=== PATIENT | female | born 1985 | race Caucasian/White ===

== ENCOUNTER 2016-08-06 17:26 | Observation (INO) | payer OTHER ==
[2016-08-06] MEDS ORDERED: Sodium Chloride 0.9% 1,000 ML IV STA (17:45)
--- NOTE | 2016-08-06 17:58 | ED PDOC ---
Arrival/HPI - General Chief Complaint: Abdominal Pain Time Seen by Provider: 08/06/16 17:28 Historian: Patient - History of Present Illness Narrative History of Present Illness (Text): 08/06/16 17:48 A 30 year old female, whose past medical history includes gallstones and appendectomy, presents to the emergency department complaining of epigastric and right upper abdominal pain for the past 3 days. Patient says symptoms are worse with eating. She denies any relieving factors. She was given pain medication by her PMD which has provided minimal relief. Patient denies any fever, chills, nausea, vomiting, diarrhea, urinary symptoms, chest pain, shortness of breath or any other complaints. PMD: Dr. Parks Time/Duration: Other (3 days) Symptom Course: Unchanged Quality: Other Context: Other Past Medical History - Provider Review Nursing Documentation Reviewed: Yes - Infectious Disease Hx of Infectious Diseases: None - Gastrointestinal Other/Comment: Gall Stones - Psychiatric Hx Substance Use: No - Surgical History Hx Appendectomy: Yes Family/Social History - Physician Review Nursing Documentation Reviewed: Yes Family/Social History: No Known Family HX Smoking Status: Never Smoked Hx Alcohol Use: No Hx Substance Use: No Allergies/Home Meds Allergies/Adverse Reactions: Allergies No Known Allergies Allergy (Verified 08/06/16 17:43) Home Medications: Home Meds Medication Instructions Recorded Confirmed Unobtainable 08/06/16 08/06/16 Review of Systems - Physician Review All systems were reviewed & negative as marked: Yes - Review of Systems Constitutional: absent: Fevers, Night Sweats Eyes: absent: Vision Changes ENT: Normal Respiratory: absent: SOB Cardiovascular: absent: Chest Pain Gastrointestinal: Abdominal Pain (Epigastric and RUQ pain). absent: Diarrhea, Nausea, Vomiting Genitourinary Female: absent: Dysuria, Frequency, Hematuria, Urine Output Changes Musculoskeletal: absent: Back Pain Neurological: absent: Headache, Dizziness Physical Exam Vital Signs Reviewed: Yes Vital Signs Temp Pulse Resp BP Pulse Ox 08/06/16 18:19 98.5 F 82 18 121/77 99 08/06/16 17:40 98.5 F 82 16 121/77 99 Temperature: Afebrile Blood Pressure: Normal Pulse: Regular Respiratory Rate: Normal Appearance: Positive for: Well-Appearing, Non-Toxic, Comfortable Pain Distress: None Mental Status: Positive for: Alert and Oriented X 3 - Systems Exam Head: Present: Atraumatic, Normocephalic Pupils: Present: PERRL Conjunctiva: Present: Normal Mouth: Present: Moist Mucous Membranes Pharnyx: Present: Normal. No: ERYTHEMA, EXUDATE Neck: Present: Normal Range of Motion Respiratory/Chest: Present: Clear to Auscultation, Good Air Exchange. No: Respiratory Distress, Accessory Muscle Use Cardiovascular: Present: Regular Rate and Rhythm, Normal S1, S2. No: Murmurs Abdomen: Present: Tenderness (Epigastric and RUQ tenderness to palpation), Normal Bowel Sounds, Other (positive Lucas's sign). No: Distention, Peritoneal Signs, Rebound, Guarding Back: Present: Normal Inspection Upper Extremity: Present: Normal Inspection. No: Cyanosis, Edema Lower Extremity: Present: Normal Inspection. No: Edema Neurological: Present: GCS=15, CN II-XII Intact, Speech Normal Skin: Present: Warm, Dry, Normal Color. No: Rashes Psychiatric: Present: Alert, Oriented x 3, Normal Insight, Normal Concentration Medical Decision Making ED Course and Treatment: 08/06/16 17:48 Impression: A 30 year old female with epigastric and RUQ pain. Tenderness noted on exam. Plan: -- Abdomen ultrasound -- Labs -- Urinalysis -- Pepcid, Toradol and IV fluids -- Reassess and disposition Progress Notes: Report Date: 08/06/16 19:17 EXAM: US Abdomen Complete Dictated and Authenticated by: Oscar Smiley MD IMPRESSION: Multiple stones with positive sonographic Lucas sign. Findings could be associated with cholecystitis. However, no wall thickening or evidence for pericholecystic fluid. The common bile duct is enlarged at 7.4 mm. If the enzymes are elevated consider MRCP to exclude potential common bile duct stone. Hepatomegaly and hepatic steatosis. 08/06/16 20:06 Patient with noted history. LFTs are significantly elevated with sono showing gallstones with sonographic Lucas's. Patient will need treatment for cholecystitis, including iv antibiotics and surgical consult, for possible cholecsystectomy. Case was discussed with Dr. Parks, her PMD, who requested GI consult with Dr. Eid and surgical consult with Dr. Ely. 08/06/16 20:[address] a/p. - Lab Interpretations Lab Results: 08/06/16 18:06 08/06/16 18:06 Lab Results 08/06/16 18:15: Urine Color Yellow, Urine Appearance Clear, Urine pH 6.5, Ur Specific Shanks 1.020, Urine Protein Negative, Urine Glucose (UA) Negative, Urine Ketones Negative, Urine Blood Moderate H, Urine Nitrate Negative, Urine Bilirubin Negative, Urine Urobilinogen 0.2, Ur Leukocyte Esterase Negative, Urine RBC 0 - 2, Urine WBC 0 - 2, Ur Epithelial Cells 1 - 3, Urine Bacteria Small, Urine HCG, Qual Negative 08/06/16 18:06: Sodium 139, Potassium 4.0, Chloride 97 L, Carbon Dioxide 29, Anion Gap 17, BUN 13, Creatinine 0.7, Est GFR ( Amer) > 60, Est GFR (Non- Af Amer) > 60, Random Glucose 95, Calcium 10.1, Total Bilirubin 1.5 H, AST 588 H , ALT 405 H, Alkaline Phosphatase 114, Total Protein 9.3 H, Albumin 4.8, Globulin 4.6, Albumin/Globulin Ratio 1.0 L, Amylase 77, Lipase 219 08/06/16 18:06: PT 10.6, INR 0.98, APTT 27.3 08/06/16 18:06: WBC 10.1, RBC 4.77, Hgb 12.8, Hct 38.3, MCV 80.3, MCH 26.8, MCHC 33.4, RDW 13.5, Plt Count 421, MPV 8.9, Gran % 65.7, Lymph % (Auto) 27.4, Faulkner % (Auto) 5.7, Eos % (Auto) 0.9 L, Baso % (Auto) 0.3, Gran # 6.64 H, Lymph # 2.8, Faulkner # 0.6, Eos # 0.1, Baso # 0.03 I have reviewed the lab results: Yes - RAD Interpretation Radiology Orders: 08/06/16 17:44 ABDOMEN COMPLETE [US] Stat 08/06/16 19:53 ABD & PELVIS IV CONTRAST ONLY [CT] Stat - Medication Orders Current Medication Orders: Discontinued Medications Famotidine (Pepcid) 20 mg IVP STAT STA Stop: 08/06/16 17:46 Last Admin: 08/06/16 19:11 Dose: 20 mg Sodium Chloride (Sodium Chloride 0.9%) 1,000 mls @ 1,000 mls/hr IV .Q1H STA Stop: 08/06/16 18:44 Last Admin: 08/06/16 18:00 Dose: 1,000 mls/hr Ketorolac Tromethamine (Toradol) 30 mg IVP STAT STA Stop: 08/06/16 17:46 Last Admin: 08/06/16 19:10 Dose: 30 mg Morphine Sulfate (Morphine) 2 mg IVP STAT STA Stop: 08/06/16 19:54 - Scribe Statement The provider has reviewed the documentation as recorded by the Scribe Shameka Glover Provider Scribe Attestation: All medical record entries made by the Scribe were at my direction and personally dictated by me. I have reviewed the chart and agree that the record accurately reflects my personal performance of the history, physical exam, medical decision making, and the department course for this patient. I have also personally directed, reviewed, and agree with the discharge instructions and disposition. Disposition/Present on Arrival - Present on Arrival Any Indicators Present on Arrival: No History of DVT/PE: No History of Uncontrolled Diabetes: No Urinary Catheter: No History of Decub. Ulcer: No History Surgical Site Infection Following: None - Disposition Have Diagnosis and Disposition been Completed?: Yes Diagnosis: Cholecystitis Disposition: HOSPITALIZED Disposition Time: 20:00 Patient Plan: Admission Condition: FAIR Referrals: Jax Parks MD [Primary Care Provider] - Follow up with primary
[2016-08-06 18:08] LABS: ADD MANUAL DIFF? NO
[2016-08-06 18:16] LABS: BASO # 0.03 K/mm3 (0.0-2.0); BASO % 0.3 % (0.0-3.0); EOS # 0.1 (0.0-0.7); EOS % 0.9 % (1.5-5.0); GRAN # 6.64 (1.4-6.5); GRAN % 65.7 % (50.0-68.0); HEMATOCRIT 38.3 % (36.0-48.0); LYMPH # 2.8 (1.2-3.4); LYMPH % 27.4 % (22.0-35.0); MEAN CELL VOLUME 80.3 fL (80.0-105.0); MEAN CORPUSCULAR HEMOGLOBIN 26.8 pg (25.0-35.0); MEAN CORPUSCULAR HGB CONC 33.4 g/dl (31.0-37.0); MEAN PLATELET VOLUME 8.9 fl (7.0-11.0); MONO # 0.6 (0.1-0.6); MONO % 5.7 % (1.0-6.0); PLATELET COUNT 421 10^3/uL (120.0-450.0); RED CELL DISTRIBUTION WIDTH 13.5 % (11.5-14.5); WHITE BLOOD COUNT 10.1 10^3/ul (4.5-11.0)
[2016-08-06 18:21] LABS: ALKALINE PHOSPHATASE 114 U/L (38-133); ALT/SGPT 405 U/L (7-56); AMYLASE 77 U/L (35-125); AST/SGOT 588 U/L (15-39); BILIRUBIN,TOTAL 1.5 mg/dL (0.2-1.3); BLOOD UREA NITROGEN 13 mg/dL (7-21); CALCIUM 10.1 mg/dL (8.4-10.5); CARBON DIOXIDE 29 mmol/L (21-33); CHLORIDE 97 mmol/L (98-107); GFR AFRICAN-AMERICAN > 60; GLUCOSE,RANDOM 95 mg/dL (70-110); LIPASE 219 U/L (23-300); SODIUM 139 mmol/L (132-148); TOTAL PROTEIN 9.3 g/dL (5.8-8.3)
[2016-08-06 18:23] LABS: INR 0.98 (0.93-1.08); PARTIAL THROMBOPLASTIN TIME 27.3 Seconds (23.7-30.8)
[2016-08-06 18:25] LABS: PH,URINE 6.5 (4.7-8.0); URINE BILIRUBIN NEGATIVE (NEGATIVE); URINE BLOOD MODERATE (NEGATIVE); URINE GLUCOSE (UA) NEGATIVE (NEGATIVE); URINE KETONE NEGATIVE (NEGATIVE); URINE LEUKOCYTE ESTERASE NEGATIVE Leu/uL (NEGATIVE); URINE PROTEIN NEGATIVE mg/dL (<30 mg/dL); URINE UROBILINOGEN 0.2 E.U./dL (<1 E.U./dL)
[2016-08-06 18:26] LABS: URINE APPEARANCE CLEAR (CLEAR); URINE COLOR YELLOW (YELLOW)
[2016-08-06 18:38] LABS: URINE BACTERIA SMALL (NEG); URINE RBC 0 - 2 /hpf (0-2); URINE WBC 0 - 2 /hpf (0-6)
[2016-08-06] MEDS ORDERED: Morphine 2 mg/ml ISec IVP STA (19:53)
[2016-08-06] MEDS ORDERED: cefTRIAXone 1 gm 1 GM/100 ML BAG IVPB STA (20:10)
[2016-08-06] MEDS ORDERED: metroNIDAZOLE IV 500 mg/100 ml 500 MG/100 ML BAG IVPB STA (20:11)
[2016-08-06] MEDS ORDERED: Iohexol 350 MG/100 ML VIAL ONE (20:29)
--- NOTE | 2016-08-06 22:07 | CT ---
EXAM: CT Abdomen and Pelvis With Intravenous Contrast CLINICAL HISTORY: 30 years old, female; Pain; Abdominal pain; Acute; Additional info: Upper abd pain - R/O cholecystitis TECHNIQUE: Axial computed tomography images of the abdomen and pelvis with intravenous contrast. This CT exam was performed using one or more of the following dose reduction techniques: automated exposure control, adjustment of the mA and/or kV according to patient size, and/or use of iterative reconstruction technique. Coronal and sagittal reformatted images were created and reviewed. CONTRAST: 100 mL of OMNI 350 administered intravenously. EXAM DATE/TIME: 08/06/2016 7:53 PM COMPARISON: US - ABDOMEN COMPLETE 08/06/2016 6:37:07 PM FINDINGS: Artifacts: Motion artifact degrades image quality. Streak artifact degrades image quality. Lower thorax: Heart size is normal. There is airspace disease at the lung bases. There are small effusions at the lung bases. ABDOMEN: Liver: There is fatty infiltration of the liver. Gallbladder and bile ducts: Gallbladder is distended. There are small calcified stones. Common bile duct is unremarkable. Pancreas: unremarkable Spleen: unremarkable Adrenals: unremarkable Kidneys and ureters: unremarkable Stomach and bowel: Stomach is incompletely distended which accentuates the gastric wall.Bowel rotation is normal. Small bowel is mildly distended with fluid. There is no obstruction. There is fecalization of the distal ileum. There are multiple clips at the base of the cecum. Appendix is not visualized. There is moderate stool in the right and transverse colon. Left colon is incompletely distended. Appendix: See stomach and bowel PELVIS: Bladder: Bladder is partially distended. Reproductive: Uterus is flexed with an IUD. Adnexa are unremarkable. ABDOMEN and PELVIS: Intraperitoneal space: There is no significant fluid. There is no free air. Bones/joints: There are degenerative changes in the osseus structures. Soft tissues: Various rectus diastases. There is a small fat containing umbilical hernia. Vasculature: Vascular structures are unremarkable. Lymph nodes: unremarkable IMPRESSION: Fatty liver, no acute solid visceral abnormality; distended gallbladder with stones, no pericholecystic fluid or ductal dilatation; probable appendectomy; bilateral pleural effusions with basilar airspace disease atelectasis and/or infiltrate If there is clinical suspicion for acute cholecystitis, no biliary scanning may be helpful
[2016-08-07] MEDS: Dextrose 5%/0.45% NS 1,000 ML IV SCH ×2 (00:09→17:43)
[2016-08-07] MEDS ORDERED: metroNIDAZOLE IV 500 mg/100 ml 500 MG/100 ML BAG IVPB SCH (06:00)
[2016-08-07 07:41] LABS: ALB/GLOB RATIO 1.1 (1.1-1.8); ALKALINE PHOSPHATASE 114 U/L (38-133); ALT/SGPT 759 U/L (7-56); AMYLASE 66 U/L (35-125); BILIRUBIN,TOTAL 1.2 mg/dL (0.2-1.3); BLOOD UREA NITROGEN 11 mg/dL (7-21); CARBON DIOXIDE 28 mmol/L (21-33); CHLORIDE 103 mmol/L (98-107); GFR AFRICAN-AMERICAN > 60; GLUCOSE,RANDOM 93 mg/dL (70-110); LIPASE 178 U/L (23-300); SODIUM 139 mmol/L (132-148); TOTAL PROTEIN 7.6 g/dL (5.8-8.3)
[2016-08-07 07:56] LABS: AST/SGOT 837 U/L (15-39)
[2016-08-07] MEDS: cefTRIAXone 1 gm 1 GM/100 ML BAG IVPB SCH (09:31)
[2016-08-07] MEDS: Morphine 2 mg/ml ISec IVP PRN ×2 (11:12→21:39)
[2016-08-07] MEDS ORDERED: Levalbuterol 1.25 MG/3 ML Inhal Soln UD IH PRN (12:20)
--- NOTE | 2016-08-07 13:43 | US ---
HISTORY: gallstones, abd pain - r/o cholecystitis COMPARISON: CT abdomen and pelvis 07/07/2016 TECHNIQUE: Sonographic evaluation of the abdomen. FINDINGS: LIVER: Measures 20.6 cm and is enlarged. Increased echogenicity of the liver parenchyma. Mild intrahepatic bile duct dilatation is suspect on this exam. An 0.4 x 1.8 cm oval hypo echogenicity in the inferior right hepatic lobe seen on sagittal and transverse images with the right kidney is present this is not definitively identified on the CT exam is equivocally present as a minimal hyper density on axial series 2, image 78. Focal fatty sparing versus other potential etiologies are some considerations. Consider MRI of the liver with contrast enhancement for further characterization GALLBLADDER: Tiny gallstones within the gallbladder with minimal sludge is suggested. No gallbladder wall thickening or gross pericholecystic fluid is suggested. The gallbladder wall measures approximately 2.6 mm. The technologist has reported a sonographic positive Lucas's sign elicited COMMON BILE DUCT: Measures 7.9 mm. No gross intra choledochal calculus appreciated PANCREAS: Unremarkable as visualized. No mass. No ductal dilatation. RIGHT KIDNEY: Measures 11.1 by 4.3 x 4.7cm. Normal echogenicity. No calculus, mass, or hydronephrosis. LEFT KIDNEY: Measures 11.4 x 6.3 x 5.3cm. Normal echogenicity. No calculus, mass, or hydronephrosis. SPLEEN: Normal in size and contour. No mass. AORTA: No aneurysmal dilatation. IVC: Unremarkable. OTHER FINDINGS: None. IMPRESSION: Small gallstones within the gallbladder with positive sonographic Lucas sign elicited. No gallbladder wall thickening or pericholecystic fluid appreciated. Given patient's age common bile duct is borderline prominent. Mild intrahepatic bile duct dilatation on this ultrasound exam is suspect. Common bile duct calculus although not visualized cannot be excluded. Consider MRCP consider HIDA. Close follow-up recommended Fatty enlarged liver with with focal hypo echogenic right hepatic lobe focus as described above. Focal fatty sparing is 1 consideration given the background fatty liver changes suggested. Other etiologies are not excluded. Consider MRI of the liver with contrast enhancement for further characterisation
--- NOTE | 2016-08-07 14:49 | MRI ---
PROCEDURE: Magnetic Resonance Cholangiopancreatography HISTORY: Rule out common bile duct stone COMPARISON: None available. TECHNIQUE: Multiplanar, multisequence MR images of the abdomen were obtained, including heavily T2 weighted MRCP images of the biliary system. Rotating maximum intensity projection images of the biliary system were generated. FINDINGS: MRCP: The common bile duct is of a normal caliber. No evidence of choledocholithiasis. No intrahepatic biliary ductal dilatation. LIVER: Unremarkable. GALLBLADDER: Multiple small stones are layered in the gallbladder. SPLEEN: Unremarkable. PANCREAS: Unremarkable. ADRENALS: Unremarkable. KIDNEYS: Unremarkable. AORTA: No aneurysm. ASCITES: None. OTHER FINDINGS: None. IMPRESSION: Multiple gallstones. No evidence of common duct stones
[2016-08-07] MEDS: metroNIDAZOLE IV 250mg/50 ml 250 MG/50 ML BAG IVPB SCH ×2 (14:54→22:16)
--- NOTE | 2016-08-07 15:27 | HP ---
The patient is a 30-year-old female who came in with complaining of abdominal pain for the last 3 day s continuous. HISTORY OF PRESENT ILLNESS: A 30-year-old female complained of abdominal pain. The patient has a pa in on the right side, mainly upper abdomen. Feels nauseous. She has had this pain continuous for 3 days, getting worse, not getting better and worse with eating. She was advised to go to the ER for e valuation. She denied any fever, any chills, any other complaint. She does feel nauseous. ALLERGIES: No known allergies. HOME MEDICATIONS: She does not really take many meds except Protonix maybe for dyspepsia. She does not know what medicines. SOCIAL HISTORY: She is , has children. No smoking. No drinking. FAMILY HISTORY: Noncontributory. PAST MEDICAL HISTORY: She does have overweight, obesity. No history of cardiac disease. She does h ave history of appendectomy in the past. REVIEW OF SYSTEMS: Negative chest pain, negative shortness breath. Negative, except recently, abdom inal pain, otherwise negative. No dysuria. No neurologic deficits. PHYSICAL EXAMINATION: As follows: VITAL SIGNS: Temperature 98.1, heart rate 80, blood pressure 100/64, respiration 20, saturation 97%. HEAD AND NECK: Normal. No JVD, no thyromegaly. CHEST: Clear, good entry. CARDIAC: First sound, second sound normal. ABDOMEN: Soft. There is tenderness in the right upper quadrant mainly and epigastric area. Bowel s ounds intact. EXTREMITIES: No edema. NEUROLOGIC: Normal. LABORATORY STUDIES: White count 10.1, hemoglobin 12.8, hematocrit 38.3, platelets are 421. Chemistr y shows sodium 139, potassium 4, chloride 97, bicarb 29, BUN 13, creatinine 0.7. Liver functions renetta t is high. Total bili 1.5, AST 588, ALT 405. Total protein 9.3, alk phos 114. The patient had a CT abdomen, shows gallstones, distended gallbladder, fatty liver, possible cholecystitis. IMPRESSION AND PLAN: A 30-year-old female came in with abdominal pain, persistent for 3 days; gallbl adder stones possible, common bile duct mildly distended. We will admit the patient. Intravenous an tibiotic, Flagyl. We will decrease the dose to 250 q.8 because of abnormal liver function test. Gustavo ephin 1 gram daily. Get an infectious disease consult, gastrointestinal consult, Dr. Eid; surgi katiuska consult, Dr. Ely. We will continue current therapy, intravenous Protonix and we will follow up with them. Discussed with Dr. Ely. He will get an MRCP. We will follow up with the gastrointestin al consult, Dr. Eid. Continue current therapy, morphine p.r.n. for pain. Continue intravenous therapy, intravenous Protonix. Keep the patient n.p.o. for now. Monitor liver function test, was se nt for hepatitis profile. Jax Parks MD cc: [id number] TT: 08/07/2016 15:27:09 sn
--- NOTE | 2016-08-07 17:49 | CP.PCM.CON ---
History of Present Illness - History of Present Illness History of Present Illness: 30 year old female with PMH of gallstones, S/P appendectomy, obesity with BMI 34 came in to the ED complaining of right upper quadrant and epigastric pain which has worsened in the past 3 days. The pain is worse after eating and is associated with nausea but no vomiting. She denies fever or chills, no headache or dizziness, no chest pain, no SOB, no cough or colds, no sore throat, no diarrhea, no dysuria. In the ED, abdominal ultrasound had positive Lucas's sign and MRCP was done which showed gallstones but no common bile duct stones. Infectious diseases consult is requested to further evaluate and manage. Review of Systems - Review of Systems All systems: reviewed and no additional remarkable complaints except (as per HPI ) Past Patient History - Infectious Disease Hx of Infectious Diseases: None - Past Social History Smoking Status: Never Smoked - MUSCULOSKELETAL/RHEUMATOLOGICAL Hx Falls: No - GASTROINTESTINAL Other/Comment: Gall Stones - PSYCHIATRIC Hx Substance Use: No - SURGICAL HISTORY Hx Appendectomy: Yes Meds Allergies/Adverse Reactions: Allergies Allergy/AdvReac Type Severity Reaction Status Date / Time No Known Allergies Allergy Verified 08/06/16 17:43 - Medications Medications: Current Medications Dextrose/Sodium Chloride (Dextrose 5%/0.45% Ns 1000 Ml) 1,000 mls @ 75 mls/hr IV .[id number] [facility] Last Admin: 08/07/16 17:43 Dose: 75 mls/hr Ceftriaxone Sodium (Rocephin 1 Gram Ivpb) 1 gm in 100 mls @ 100 mls/hr IVPB DAILY [facility] PRN Reason: Protocol Last Admin: 08/07/16 09:31 Dose: 100 mls/hr Metronidazole (Flagyl) 250 mg in 50 mls @ 100 mls/hr IVPB Q8 [facility] PRN Reason: Protocol Stop: 08/12/16 14:01 Last Admin: 08/07/16 14:54 Dose: 100 mls/hr Levalbuterol HCl (Xopenex) 1.25 mg IH [id number] PRN PRN Reason: Shortness of Breath Morphine Sulfate (Morphine) 2 mg IVP Q4H PRN PRN Reason: Pain, severe (8-10) Last Admin: 08/07/16 11:12 Dose: 2 mg Pantoprazole Sodium (Protonix Inj) 40 mg IVP DAILY [facility] Last Admin: 08/07/16 09:31 Dose: 40 mg Physical Exam - Constitutional Appears: Non-toxic, No Acute Distress - Head Exam Head Exam: NORMAL INSPECTION - ENT Exam ENT Exam: Mucous Membranes Moist - Neck Exam Neck exam: Negative for: Lymphadenopathy, Meningismus - Respiratory Exam Respiratory Exam: Decreased Breath Sounds - Cardiovascular Exam Cardiovascular Exam: +S1, +S2 - GI/Abdominal Exam GI & Abdominal Exam: Soft, Tenderness (right upper quadrant and epigastric area) . absent: Diminished Bowel Sounds, Distended, Firm, Guarding Results - Vital Signs Recent Vital Signs: Last Vital Signs Temp 98.1 F 08/07/16 06:00 Pulse 80 08/07/16 06:00 Resp 20 08/07/16 06:00 BP 100/64 08/07/16 06:00 Pulse Ox 97 08/07/16 06:00 - Labs Result Diagrams: 08/06/16 18:06 08/07/16 07:00 Labs: Laboratory Results - last 24 hr 08/07/16 08/07/16 07:00 14:04 Sodium 139 Potassium 4.0 Chloride 103 Carbon Dioxide 28 Anion Gap 12 BUN 11 Creatinine 0.7 Est GFR ( Amer) > 60 Est GFR (Non-Af Amer) > 60 Random Glucose 93 Calcium 9.0 Total Bilirubin 1.2 AST 837 H ALT 759 H Alkaline Phosphatase 114 Total Protein 7.6 Albumin 3.9 Globulin 3.7 Albumin/Globulin Ratio 1.1 Amylase 66 Lipase 178 Hep Bs Antigen Negative Assessment & Plan - Assessment and Plan (Free Text) Plan: Assessment Probable acute cholecystitis history of gallstones S/P appendectomy obesity with BMI 34 Plan Agree to continue Rocephin and Flagyl; follow up plan for Surgery; MRCP does not show CBD stones Will monitor clinically
--- NOTE | 2016-08-07 18:24 | CON ---
DATE: 08/07/2016 Seen and examined at the bedside earlier today. REQUEST FOR CONSULTATION: For abdominal pain and elevated LFTs. HISTORY OF PRESENT ILLNESS: This is a 30-year-old female who speaks Romanian. 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 This is a 30-year-old female, came to the Emergency Room with complaint of abdominal pain x 3 days, although the patient states that she has had abdominal pain intermittently for the past few months. She does report history of gallstones. Denies any symptoms of nausea, vomiting. Does complain of chills. Denies any weight loss or loss of appetite. She complains of pain in the epigastric area that radiates to the right upper quadrant. Does state that the pain becomes worse after eating. Denies any change in bowel habits. No complaints of any bleeding per rectum or any hemetemesis. Denies any dysuria. She had an abdominal ultrasound done on admission, which reported gallstones and fatty enlarged liver and reports that the CBD duct measured 7.9 mm. She then went for a CT scan of abdomen and pelvis with IV contrast, reported again fatty liver and distended gallbladder with stones, no fluid, no pericholecystic fluid or ductal dilatation. She then went for MRCP, which did show multiple stones in the gallbladder. The common bile duct was normal. No evidence of choledocholithiasis or ductal dilatation. Her liver enzymes were also elevated on admission. PAST MEDICAL HISTORY: Gallstones. Denies any respiratory or cardiac conditions. PAST SURGICAL HISTORY: She had an appendectomy. FAMILY HISTORY: Denies. SOCIAL HISTORY: Denies smoking, ETOH, or substance abuse. Last menstrual period January. The patient states she has IUD. ALLERGIES: No known drug allergies. MEDICATIONS: Reviewed as per JUN. REVIEW OF SYSTEMS: Systems reviewed with positive findings, see HPI. VITAL SIGNS: Temperature is 98.1, blood pressure 100/64, pulse 80, respirations 20, 97% on room air. LABORATORIES: Sodium is 139, K 4.0, chloride 103, BUN 11, creatinine 0.7. Total bilirubin is 1.2, on admission it was 1.5. AST today is 837, on admission it was 588. ALT 7759, it was 405 on admission. Alkaline phosphatase is 114 and it remains the same today. Her amylase is 66. Lipase is 178. PT is 10.6, INR is 0.98, PTT is 27.3. Urine hCG is negative. Urine is negative for leukocyte esterase, did show moderate blood, negative ketones and protein. PHYSICAL EXAMINATION: HEENT: Sclera is anicteric. NECK: Supple. CARDIAC: S1, S2. LUNG SOUNDS: Clear. ABDOMEN: With bowel sounds, soft, does not appear distended. She does have tenderness in the epigastric area. No rebound, guarding, or organomegaly. EXTREMITIES: Positive pedal pulses, no edema. NEUROLOGIC: Awake, alert, and oriented. ASSESSMENT/PLAN: This is a 30-year-old female with a past medical history of gallstones and appendectomy, complaining of abdominal pain for duration of 3 days. She was given pain medication with no relief and complains increasing of symptoms after eating. Status post multiple diagnostic tests, which confirm cholelithiasis, no choledocholithiasis. Her LFTs are elevated. There were concerns for acute cholecystitis. The patient is on IV antibiotics of ceftriaxone and Flagyl. Continue Protonix for gastrointestinal prophylaxis. She is on IV fluids as she is n.p.o. Trend LFTs and also follow up hepatitis panel. She is being followed by surgery. The patient is being followed by surgery as well as ID. The patient is being followed by surgery. We will continue to follow the patient. Thank you for this consult and for allowing us to participate in your patient's care. We will make further recommendations based upon patient's clinical course. The patient was seen and case discussed with Dr. Eid. Maylin BURCH cc: [id number] TT: 08/07/2016 18:23:07 Confirmation # [id number] Dictation # [id number] en [id number]
--- NOTE | 2016-08-07 19:21 | CON ---
DATE: 08/07/2016 REFERRING PHYSICIAN: REASON FOR CONSULT: Right upper quadrant pain. CAT scan showed basilar atelectasis versus infiltrat e. HISTORY OF PRESENT ILLNESS: This is a 30-year-old female with past medical history significant for g allstone, comes in to Emergency Room with epigastric and right upper quadrant pain, which increases w ith food intake. She has been on some pain medication with relief but recurrent pain lead her to ER. There is no vomiting, no diarrhea. No leg pain or leg swelling. PAST MEDICAL HISTORY: Known gallstone. ALLERGIES: None known. SOCIAL HISTORY: Nonsmoker, nondrinker. FAMILY HISTORY: No significant cardiopulmonary disease reported. MEDICATIONS: She is getting IV fluid D5 half normal saline 75 mL per hour, metronidazole 250 mg q. 8 hours, morphine 2 mg IV q. 4 hours p.r.n., Protonix 40 mg IV daily, Rocephin 1 g IV daily, Xopenex i nhaler q. 6 hours p.r.n. REVIEW OF SYSTEMS: No headache, no rhinitis, no cough, no sputum production. Has epigastric and rig ht upper quadrant pain. No leg pain or leg swelling. PHYSICAL EXAMINATION: GENERAL: Lying in the bed, mild to moderate distress secondary to right upper quadrant pain. VITAL SIGNS: Temperature is 98, heart rate is 80, respiratory rate is 18, blood pressure 100/64, pul se ox 97% on room air. HEENT: Moist mucous membrane. No ulcer or oral thrush noted. NECK: Supple. No JVD. LUNGS: Has a fair airflow. HEART: S1, S2. ABDOMEN: Positive bowel sounds, right upper quadrant tenderness. EXTREMITIES: There is no edema. NEUROLOGIC: Awake, alert, follows simple commands. LABORATORY DATA: Shows hemoglobin 12.8, hematocrit 38.3, WBC 10.1, platelet is 421. INR 0.98. PTT is 27. Sodium 139, potassium 4.0, chloride 103, bicarbonate 28, BUN 11, creatinine 0.7, glucose 93, AST 837, ALT 758, total bilirubin 1.2, alkaline phosphatase is 114, albumin is 3.9, amylase is 66, li pase is 178. CAT scan of abdomen and pelvis done on admission shows fatty liver, distended gallbladd er with a stone. No pericholecystic fluid or ductal dilatation. Bilateral small pleural effusions w ith basilar infiltrate. Also had abdominal ultrasound done yesterday, which shows small gallstones i n the gallbladder with positive sonographic Lucas sign listed, mild intrahepatic ductal dilatation. MRCP report is pending. IMPRESSION AND PLAN: Probably cholecystitis with ductal stone, basal infiltrate and effusion. Surgi katiuska consult. I agree with Dr. Parks with the present management. Inhaled bronchodilator, incentive spirometer. Add gastric prophylaxis. Deep venous thrombosis prophylaxis. Sleep apnea precautions if sedated. Needs close cardiopulmonary monitoring lyric and post-anesthesia. Will follow with you. Steve Coley MD cc: [id number] TT: 08/07/2016 19:21:16 Confirmation # [id number] Dictation # [id number] mimi
[2016-08-08] MEDS: Dextrose 5%/0.45% NS 1,000 ML IV SCH ×2 (04:00→08:43)
[2016-08-08] MEDS: metroNIDAZOLE IV 250mg/50 ml 250 MG/50 ML BAG IVPB SCH ×3 (05:48→21:08)
[2016-08-08] MEDS: Morphine 2 mg/ml ISec IVP PRN ×3 (06:08→19:32)
[2016-08-08 07:47] LABS: ALB/GLOB RATIO 1.1 (1.1-1.8); BILIRUBIN,DIRECT 1.2 mg/dL (0.0-0.4); BILIRUBIN,TOTAL 1.7 mg/dL (0.2-1.3); TOTAL PROTEIN 8.2 g/dL (5.8-8.3)
--- NOTE | 2016-08-08 08:06 | CON ---
DATE: 08/06/2016 REASON FOR CONSULTATION: Acute cholecystitis with cholelithiasis. HISTORY OF THE PRESENT ILLNESS: This is a young 30-year-old female who presented to the Emergency Ro om with 3-day history of right upper quadrant pain and epigastric pain associated with nausea, no vom iting, no fever, no chills. The patient stated that she has been having these episodes multiple time s before. She denies any change in the stool color or urine color. She has been known that she has cholelithiasis, but this time, it was severely painful and is not res ponding to pain medicine. PAST MEDICAL HISTORY: None. PAST SURGICAL HISTORY: She had appendectomy 5 years ago, and she had hemorrhoidectomy 2 years ago. ALLERGIES: None. MEDICATIONS AT HOME: Medicine p.r.n. SOCIAL HISTORY: No smoking, no drinking, no drug abuse. FAMILY HISTORY: Not of any concern. REVIEW OF SYSTEMS: A 10-point review of system mainly consisted of epigastric pain as well as right upper quadrant pain and absence of any other symptoms. PHYSICAL EXAMINATION: VITAL SIGNS: Her T-max on admission was 98.5, blood pressure 121/77, heart rate 82 HEENT: She is atraumatic, normocephalic. Normal ears, nose, and throat. NECK: Supple. Trachea in the midline. No lymphadenopathy, no thyromegaly. CHEST: Clear to auscultation bilaterally. No wheezes, no crepitation. CARDIOVASCULAR: S1, S2. No murmur, no gallop. ABDOMEN: Soft, tender in the epigastric and right upper quadrant areas, but no rebound, no guarding, no peritonitis. EXTREMITIES: Within normal limits. LABORATORY DATA: White count on admission was 10.1. Hemoglobin is 13. Hematocrit is 38. Platelet count is 421. Her PT is 10. PTT is 27.3 with INR 0.98. Her chemistry: Sodium is 139. Potassium is 4. Chloride is 97. BUN is 13. Total bilirubin is 1.5. AST is 588. ALT is 405, alk phos 114. The rest of amylase and lipase is normal - 77 and 219. Her urine is negative for UTI. The patient had ultrasound that is still pending report. Her CT scan was consistent with dilated gallbladder with cholelithiasis, and no common bile duct dila tation on the CT scan, and no pericholecystic fluid. ASSESSMENT: Acute cholecystitis with cholelithiasis clinically. PLAN: We will proceed with MRCP to rule out common bile duct stones. If the MRCP is negative, we wi ll proceed with laparoscopic cholecystectomy hopefully tomorrow. Case discussed with the patient in detail. Monica Ely MD cc:Jax Parks MD [id number] TT: 08/07/2016 12:42:38 Confirmation # [id number] Dictation # [id number] jn
[2016-08-08] MEDS: cefTRIAXone 1 gm 1 GM/100 ML BAG IVPB SCH (10:27)
--- NOTE | 2016-08-08 11:37 | PN ---
DATE: 08/08/2016 REFERRING PHYSICIAN: Dr. Parks. SUBJECTIVE: The patient is lying in the bed, head at 45 degrees, feels better compared to yesterday. Decreased epigastrium and right upper quadrant pain. Still has nausea, no vomiting. No shortness of breath, no leg pain or leg swelling. OBJECTIVE: GENERAL: No acute distress. VITAL SIGNS: Temp is 98, heart rate 63, respiratory rate is 20, blood pressure 99/61, pulse ox 95% o n room air. HEENT: Moist mucous membrane. Crowded airway. Mallampati score is 4. NECK: Supple. No JVD. LUNGS: Has a fair airflow with few rhonchi. HEART: S1 and S2. ABDOMEN: Positive bowel sounds. Mild right upper quadrant tenderness. EXTREMITIES: There is no edema. NEUROLOGIC: Awake, alert, follows simple commands. MEDICATIONS: She is on IV fluid D5 half normal saline 75 mL per hour, metronidazole 250 mg q. 8 hour s, morphine 2 mg IV q. 4 hours p.r.n., Protonix 40 mg daily, Rocephin 1 g IV daily, Xopenex inhaler q . 6 hours. LABORATORY DATA: Total bilirubin is 1.7, AST 399, ALT 672. Albumin is 4.2. Had MRCP done. Shows m ultiple gallstones. No evidence of common duct stone. IMPRESSION AND PLAN: Cholecystitis with gallstones, basilar atelectasis, some effusion. May have a component of sleep apnea syndrome. Pulmonary point view, she is doing okay. May need laparoscopic c holecystectomy. Keep close monitoring while sedated and post-sedation. Needs cardiopulmonary monito ring. Continue gastric and deep vein thrombosis prophylaxis. Will follow with you. Steve Coley MD cc: [id number] TT: 08/08/2016 11:36:12 Confirmation # [id number] Dictation # [id number] mimi
--- NOTE | 2016-08-08 13:01 | CP.PCM.CON ---
Addendum entered and electronically signed by Jayashree Bloom DO 08/08/16 13:42: General Surgery Consult for Dr. Burris Original Note: <Jayashree Bloom - Last Filed: 08/08/16 12:47> History of Present Illness - History of Present Illness History of Present Illness: General Surgery Dr. Espinosa HPI: 30 y/o Hungarian-speaking F w/ PMHx of Obesity, GERD, cholelithiasis who presents to ED w/ CC of RUQ abd pain x3days. Pain is constant but the intensity worsens in waves. Pt indicates epigastric and RUQ as location of pain. Pt denies radiation of pain to back or elsewhere. Nothing makes pain better or worse. Per ED documentation, pt also c/o nausea but pt currently denies SOB, CP , F/C, N/V, D/C. admits to headache. Pt had normal vaginal delivery 6mons ago. PMHx: Obesity, GERD, cholelithiasis Meds: reviewed NKDA PSHx: appendectomy SHx: denies tobacco, EtOH, drugs FHx: non-contributory Review of Systems - Review of Systems All systems: reviewed and no additional remarkable complaints except (see HPI) Past Patient History - Infectious Disease Hx of Infectious Diseases: None - Past Social History Smoking Status: Never Smoked - MUSCULOSKELETAL/RHEUMATOLOGICAL Hx Falls: No - GASTROINTESTINAL Other/Comment: Gall Stones - PSYCHIATRIC Hx Substance Use: No - SURGICAL HISTORY Hx Appendectomy: Yes Meds Allergies/Adverse Reactions: Allergies Allergy/AdvReac Type Severity Reaction Status Date / Time No Known Allergies Allergy Verified 10/18/16 13:24 - Medications Medications: Current Medications Dextrose/Sodium Chloride (Dextrose 5%/0.45% Ns 1000 Ml) 1,000 mls @ 75 mls/hr IV .[id number] [facility] Last Admin: 08/08/16 08:43 Dose: 75 mls/hr Ceftriaxone Sodium (Rocephin 1 Gram Ivpb) 1 gm in 100 mls @ 100 mls/hr IVPB DAILY [facility] PRN Reason: Protocol Last Admin: 08/08/16 10:27 Dose: 100 mls/hr Metronidazole (Flagyl) 250 mg in 50 mls @ 100 mls/hr IVPB Q8 [facility] PRN Reason: Protocol Stop: 08/12/16 14:01 Last Admin: 08/08/16 05:48 Dose: 100 mls/hr Levalbuterol HCl (Xopenex) 1.25 mg IH [id number] PRN PRN Reason: Shortness of Breath Morphine Sulfate (Morphine) 2 mg IVP Q4H PRN PRN Reason: Pain, severe (8-10) Last Admin: 08/08/16 06:08 Dose: 2 mg Pantoprazole Sodium (Protonix Inj) 40 mg IVP DAILY [facility] Last Admin: 08/08/16 10:27 Dose: 40 mg Physical Exam - Constitutional Appears: Non-toxic, No Acute Distress - Head Exam Head Exam: NORMAL INSPECTION - Eye Exam Eye Exam: Normal appearance - ENT Exam ENT Exam: Mucous Membranes Moist - Neck Exam Neck exam: Positive for: Normal Inspection - Respiratory Exam Respiratory Exam: NORMAL BREATHING PATTERN. absent: Accessory Muscle Use, Respiratory Distress - Cardiovascular Exam Cardiovascular Exam: REGULAR RHYTHM. absent: Bradycardia, Tachycardia - GI/Abdominal Exam GI & Abdominal Exam: Guarding (voluntary), Soft, Tenderness (RUQ TTP). absent: Distended, Firm, Rebound, Rigid Additional comments: (-) Lucas's sign - Extremities Exam Extremities exam: Positive for: normal inspection. Negative for: pedal edema, tenderness Additional comments: AE hoses in place - Neurological Exam Neurological exam: Alert, Oriented x3 - Psychiatric Exam Psychiatric exam: Normal Affect, Normal Mood - Skin Skin Exam: Dry, Intact, Normal Color, Warm Results - Vital Signs Recent Vital Signs: Last Vital Signs Temp 98.4 F 08/08/16 06:00 Pulse 63 08/08/16 06:00 Resp 20 08/08/16 06:00 BP 99/61 L 08/08/16 06:00 Pulse Ox 95 08/08/16 06:00 - Labs Result Diagrams: 08/06/16 18:06 08/07/16 07:00 Labs: Laboratory Results - last 24 hr 08/07/16 08/08/16 14:04 05:00 Total Bilirubin 1.7 H Direct Bilirubin 1.2 H AST 399 H ALT 672 H Alkaline Phosphatase 113 Total Protein 8.2 Albumin 4.2 Globulin 4.0 Albumin/Globulin Ratio 1.1 Hepatitis A IgM Ab Negative Hep Bs Antigen Negative Hep B Core IgM Ab Negative Hepatitis C Antibody Negative - Imaging and Cardiology CT scan - abdomen Status: Image reviewed by me, Report reviewed by me US - abdomen Status: Image reviewed by me, Report reviewed by me MRCP Status: Image reviewed by me, Report reviewed by me Assessment & Plan - Assessment and Plan (Free Text) Assessment: 30 y/o F w/ RUQ abd pain likely 2/2 biliary cholic vs cholecystitis - NPO, IVF - IV Abx - pain management - anti-emetic - OR tomorrow due to PO intake today Pt discussed w/ Dr. Jesús Bloom DO PGY1 <Greg Burris - Last Filed: 11/06/16 22:18> Results - Vital Signs Recent Vital Signs: Last Vital Signs Temp 98.5 F 08/10/16 12:07 Pulse 70 08/10/16 12:07 Resp 18 08/10/16 12:07 BP 100/60 08/10/16 12:07 Pulse Ox 94 L 08/10/16 12:07 - Labs Result Diagrams: 08/09/16 07:30 08/09/16 07:30 Assessment & Plan - Assessment and Plan (Free Text) Plan: Patient was seen and examined by me. I agree with assessment and plan as per resident's note. - Date & Time Date: 08/08/16 Time: 15:10
--- NOTE | 2016-08-08 14:38 | PN ---
DATE: 08/08/2016 The patient is in bed, in no acute distress, nontoxic. PHYSICAL EXAMINATION: VITAL SIGNS: Temperature is 98, blood pressure is 100/60, respiratory rate of 20. HEENT: Unremarkable. NECK: Supple. LUNGS: Have decreased breath sounds. HEART: Normal S1, S2. ABDOMEN: Soft, nontender. LABORATORY EXAMINATION: Reveals a white count of 10,000, hemoglobin of 12. Chemistries reveals the LFTs are noted to be improving, kidney function is within normal limits. Urinalysis is noted. The p atient's hepatitis profile is negative. Microbiology is not available. The patient is on ceftriaxone and Flagyl. HIDA scan is ordered. ASSESSMENT AND PLAN: A 30-year-old with gallstones and appendectomy, obesity, body mass index of 34 with probable acute cholecystitis, history of gallstones, on Rocephin and Flagyl. Dr. Coley's note is reviewed. The patient had a magnetic resonance cholangiopancreatography. Dr. Jayashree Bloom's note is reviewed. Will follow closely with you. Saad Scruggs MD cc: [id number] TT: 08/08/2016 14:37:05 Confirmation # [id number] Dictation # [id number] en
--- NOTE | 2016-08-08 16:08 | PN ---
DATE: 08/08/2016 Seen and examined at the bedside earlier this afternoon. The patient with no nausea or vomiting. She still has abdominal pain, but so far tolerating the clear liquids. No reports of any acute overnight events. No fever or chills. VITAL SIGNS: Temperature 98.4, blood pressure 99/61, pulse 63, respirations 20 , 95 room air. LABORATORY DATA: Liver enzymes: Total bilirubin is 1.7, direct bili is 1.2. Her AST is 399, ALT 672, alkaline phosphatase is 113. AST, ALT does show improvement, but the bilirubin mildly elevated. Her hepatitis panel is negative. The patient went for HIDA scan, the results are pending. PHYSICAL EXAMINATION: HEENT: Sclera is anicteric. NECK: Supple. CARDIAC: S1, S2. LUNGS: Sounds are clear. ABDOMEN: With bowel sounds, soft. She does have some mild tenderness to right upper quadrant. No rebound, guarding. EXTREMITIES: No edema. ASSESSMENT: This is a 30-year-old female with right upper quadrant abdominal pain. The patient with history of gallstones and appendectomy. The patient with probable acute cholecystitis. She went for a HIDA scan today. MRCP was negative for common bile duct stones, this was reviewed. PLAN: The patient is now being seen by Dr. Burris. They are planning for surgery tomorrow. Continue the IV antibiotics of Flagyl and Rocephin. Continue PPI and IV fluids for hydration. The patient was seen and case discussed with Dr. Eid. Maylin BURCH cc: [id number] TT: 08/08/2016 16:07:10 Confirmation # [id number] Dictation # [id number] sn GUERRERO
--- NOTE | 2016-08-08 17:38 | NM ---
PROCEDURE: Nuclear Medicine Hepatobiliary Scan HISTORY: Cholecystitis COMPARISON: 08/06/2016. Abdominal ultrasound TECHNIQUE: 6.3 mCi of technetium 99m Mebrofenin was administered intravenously. Planar images of the abdomen were obtained at 5 min intervals to 60 mins. Delayed images were also obtained. FINDINGS: LIVER: Timely and homogenous uptake. COMMON BILE DUCT: Visualizes at 05:00. GALLBLADDER: identified at 5.5 hours mins. SMALL BOWEL: Identified at does not visualize at the conclusion of the examination, 5.5 hours or 330 minutes. IMPRESSION: Delayed visualization of the gallbladder seen at 5.5 hours. Common duct identified. Radionuclide not identified and small bowel.
[2016-08-09] MEDS: Dextrose 5%/0.45% NS 1,000 ML IV SCH (02:00)
[2016-08-09] MEDS: metroNIDAZOLE IV 250mg/50 ml 250 MG/50 ML BAG IVPB SCH ×3 (05:37→22:03)
[2016-08-09] MEDS: Morphine 2 mg/ml ISec IVP PRN ×3 (05:42→20:37)
[2016-08-09 08:07] LABS: ADD MANUAL DIFF? NO
[2016-08-09 08:12] LABS: BASO # 0.03 K/mm3 (0.0-2.0); BASO % 0.5 % (0.0-3.0); EOS # 0.2 (0.0-0.7); EOS % 3.3 % (1.5-5.0); GRAN # 3.62 (1.4-6.5); GRAN % 58.9 % (50.0-68.0); HEMATOCRIT 38.7 % (36.0-48.0); LYMPH % 31.9 % (22.0-35.0); MEAN CELL VOLUME 80.6 fL (80.0-105.0); MEAN CORPUSCULAR HGB CONC 32.3 g/dl (31.0-37.0); MEAN PLATELET VOLUME 9.1 fl (7.0-11.0); MONO # 0.3 (0.1-0.6); MONO % 5.4 % (1.0-6.0); PLATELET COUNT 370 10^3/uL (120.0-450.0); RED CELL DISTRIBUTION WIDTH 13.9 % (11.5-14.5); WHITE BLOOD COUNT 6.1 10^3/ul (4.5-11.0)
--- NOTE | 2016-08-09 08:17 | PN ---
DATE: 08/08/2016 This is an addendum to GI progressnote of [facility]. This patient was seen and evaluated earlier. The patient is still complaining of epigastric discomfort. Mild tenderness in the epigastric area and the right upper quadrant area. LFTs showing downward trend, but still elevated. Discussed with Dr. Parks. Requested for a HIDA scan, which was reviewed, which showed a delayed visualization. MRCP was negative. The patient is now scheduled for OR in a.m., on antibiotics. Continue to follow up the LFTs. Thank you very much for allowing me to participate in the care of the patient. Mariama Eid MD cc: [id number] TT: 08/09/2016 08:16:29 Confirmation # [id number] Dictation # [id number] en MTDD
[2016-08-09 08:41] LABS: ALKALINE PHOSPHATASE 116 U/L (38-133); ALT/SGPT 618 U/L (7-56); AST/SGOT 258 U/L (15-39); BILIRUBIN,DIRECT 0.6 mg/dL (0.0-0.4); BILIRUBIN,TOTAL 0.8 mg/dL (0.2-1.3); BLOOD UREA NITROGEN 5 mg/dL (7-21); CALCIUM 9.6 mg/dL (8.4-10.5); CARBON DIOXIDE 28 mmol/L (21-33); CHLORIDE 100 mmol/L (98-107); GFR AFRICAN-AMERICAN > 60; GLUCOSE,RANDOM 108 mg/dL (70-110); POTASSIUM 3.7 mmol/L (3.6-5.0); SODIUM 140 mmol/L (132-148); TOTAL PROTEIN 8.4 g/dL (5.8-8.3)
--- NOTE | 2016-08-09 09:26 | CP.PCM.PN ---
Addendum entered and electronically signed by Jayashree Bloom DO 08/09/16 15:24: Pt has no tenderness on exam. Pt has no signs or imaging showing acute cholecystitis. Pt has transaminits that needs to be further evaluated by GI. It is conceivable that pt symptoms are unrelated to gallbladder. Original Note: <Jayashree Bloom - Last Filed: 08/09/16 09:23> Subjective - Date & Time of Evaluation Date of Evaluation: 08/09/16 Time of Evaluation: 07:00 - Subjective Subjective: General Surgery Dr. Burris Pt S&E @bedside. NAEO. c/o RUQ abd pain. denies N/V, F/C. NPO. Objective - Vital Signs/Intake and Output Vital Signs (last 24 hours): Temp Pulse Resp BP Pulse Ox 98.3 F 67 20 108/71 98 08/08/16 16:00 08/08/16 16:00 08/08/16 16:00 08/08/16 16:00 08/08/16 16:00 Intake and Output: 08/09/16 08/09/16 06:59 18:59 Intake Total 1370 Balance 1370 - Medications Medications: Current Medications Dextrose/Sodium Chloride (Dextrose 5%/0.45% Ns 1000 Ml) 1,000 mls @ 75 mls/hr IV .[id number] [facility] Last Admin: 08/09/16 02:00 Dose: 75 mls/hr Ceftriaxone Sodium (Rocephin 1 Gram Ivpb) 1 gm in 100 mls @ 100 mls/hr IVPB DAILY [facility] PRN Reason: Protocol Last Admin: 08/08/16 10:27 Dose: 100 mls/hr Metronidazole (Flagyl) 250 mg in 50 mls @ 100 mls/hr IVPB Q8 [facility] PRN Reason: Protocol Stop: 08/12/16 14:01 Last Admin: 08/09/16 05:37 Dose: 100 mls/hr Levalbuterol HCl (Xopenex) 1.25 mg IH [id number] PRN PRN Reason: Shortness of Breath Morphine Sulfate (Morphine) 2 mg IVP Q4H PRN PRN Reason: Pain, severe (8-10) Last Admin: 08/09/16 05:42 Dose: 2 mg Pantoprazole Sodium (Protonix Inj) 40 mg IVP DAILY [facility] Last Admin: 08/08/16 10:27 Dose: 40 mg - Labs Labs: 08/09/16 07:30 08/09/16 07:30 PT 10.6 Seconds (9.9-11.8) 08/06/16 18:06 INR 0.98 (0.93-1.08) 08/06/16 18:06 APTT 27.3 Seconds (23.7-30.8) 08/06/16 18:06 - Constitutional Appears: Non-toxic, No Acute Distress - Head Exam Head Exam: NORMAL INSPECTION - Eye Exam Eye Exam: Normal appearance - ENT Exam ENT Exam: Mucous Membranes Moist - Respiratory Exam Respiratory Exam: NORMAL BREATHING PATTERN. absent: Accessory Muscle Use, Respiratory Distress - GI/Abdominal Exam GI & Abdominal Exam: Soft. absent: Distended, Guarding, Tenderness, Rebound - Extremities Exam Extremities Exam: Normal Inspection - Neurological Exam Neurological Exam: Alert, Awake, Oriented x3 - Psychiatric Exam Psychiatric exam: Normal Affect, Normal Mood - Skin Skin Exam: Dry, Intact, Normal Color, Warm Assessment and Plan - Assessment and Plan (Free Text) Assessment: 30 y/o w/ cholelithiasis and transaminitis - f/u GI recs - trend LFTs - no plans for surgery at this time. Pt discussed w/ Dr. Dayton Bloom DO PGY1 <Greg Burris - Last Filed: 11/06/16 22:20> Objective - Vital Signs/Intake and Output Vital Signs (last 24 hours): Temp Pulse Resp BP Pulse Ox 98.5 F 70 18 100/60 94 L 08/10/16 12:07 08/10/16 12:07 08/10/16 12:07 08/10/16 12:07 08/10/16 12:07 - Labs Labs: 08/09/16 07:30 08/09/16 07:30 PT 10.6 Seconds (9.9-11.8) 08/06/16 18:06 INR 0.98 (0.93-1.08) 08/06/16 18:06 APTT 27.3 Seconds (23.7-30.8) 08/06/16 18:06 Assessment and Plan - Assessment and Plan (Free Text) Plan: Patient was seen and examined by me. I agree with assessment and plan as per resident's note.
--- NOTE | 2016-08-09 10:03 | PN ---
DATE: 08/09/2016 REFERRING PHYSICIAN: Dr. Parks SUBJECTIVE: The patient is lying in the bed, head at 45 degrees. Night was unremarkable, feels bett er. No headache, no rhinitis, no shortness of breath. Abdominal pain is better. No leg pain or leg swelling. OBJECTIVE: GENERAL: No acute distress. VITAL SIGNS: Temp is 98, heart rate is 67, respiratory rate is 20, blood pressure 108/71, pulse ox 9 8% on room air. HEENT: Moist mucous membrane. Crowded airway. NECK: Supple. No JVD. LUNGS: Have a fair airflow with few rhonchi. HEART: S1 and S2. ABDOMEN: Soft, nontender. No organomegaly. EXTREMITIES: There is no edema. NEUROLOGIC: Awake, alert, follows simple command. MEDICATIONS: She is on IV fluid D5 half normal saline 75 mL per hour, Flagyl 250 mg IV q. 8 hours, m orphine 2 mg q. 4 hours p.r.n., Protonix 40 mg daily, Rocephin 1 g IV daily, Xopenex inhaled q. 6 anselmo rs p.r.n. LABORATORY DATA: Shows hemoglobin 12.5, hematocrit 38.7, WBC 6.1, platelet count is 370. Her urine hCG qualitative is negative. IMPRESSION AND PLAN: Cholecystitis with gallstones, basilar atelectasis with small effusion. Seen b y GI, infectious diseases and surgery. Pulmonary point of view, stable for cholecystectomy. Sleep a pnea precautions, needs close cardiopulmonary monitoring while sedated and postop period. Thank you and we will follow with you. Steve Coley MD cc: [id number] TT: 08/09/2016 09:29:48 Confirmation # [id number] Dictation # [id number] en
--- NOTE | 2016-08-09 10:07 | PN ---
DATE: 08/09/2016 The patient is in bed, in no acute distress, nontoxic. PHYSICAL EXAMINATION: VITAL SIGNS: Temperature is 98, blood pressure is 108/70, respiratory rate of 16. HEENT: Unremarkable. NECK: Supple. LUNGS: Have decreased breath sounds. HEART: Normal S1, S2. ABDOMEN: Soft, nontender. LABORATORY DATA: Reveals the patient's white count is 6.1, hemoglobin of 12, platelets of 370. BUN of 5, creatinine of 0.7. Urinalysis is noted. ASSESSMENT AND PLAN: This is a 30-year-old with gallstones and appendectomy, obesity, body mass inde x of 34 with probable acute cholecystitis, history of gallstones. On Rocephin and Flagyl. Dr. Kyara edwards's note is reviewed. According Dr. Eid (layout operator), the patient is scheduled for th e OR for a.m. The patient did have a nonvisualization of the ____. The patient is on Flagyl and cef triaxone. Saad Scruggs MD cc: 350 TT: 08/09/2016 10:06:08 Confirmation # [id number] Dictation # [id number] mn
[2016-08-09] MEDS: cefTRIAXone 1 gm 1 GM/100 ML BAG IVPB SCH (10:25)
--- NOTE | 2016-08-09 10:42 | PN ---
DATE: 08/08/2016 The patient still complained of pain on the right side. She is getting pain medicine on and off. Th e patient is breast feeding baby and she is getting the milk out. Discussed with her about that. Sh e has no nausea. The patient going today for HIDA scan. PHYSICAL EXAMINATION: VITAL SIGNS: Temperature is 98.3, heart rate 67, blood pressure 108/71, respirations 20, saturation 98%. HEAD AND NECK: Normal. No JVD, no thyromegaly. CHEST: Clear, good air entry. CARDIAC: First sound, second sound normal. ABDOMEN: Soft, tender right upper quadrant area. EXTREMITIES: No edema. NEUROLOGIC: Normal. The patient moves all round and she goes to the bathroom by herself, ambulating . LABORATORY DATA: The patient has the following labs including liver functions test, which shows tota l bilirubin 1.7. Her AST went down to 399 and the ALT went down a little bit to 672. IMPRESSION AND PLAN: 1. Acute abdominal pain, etiology is biliary colic versus acute cholecystitis. No common bile duct stone by MRCP. Discussed with GI. If it is negative, will be discharged. Will also consult surgica l consult for further evaluations. Plan: Continue current treatment. Check HIDA scan and repeat la bs in the morning. 2. Cholestasis. There were abnormal liver function tests. Acute hepatitis profile was sent. We wi ll repeat labs in the morning. We will follow up clinically. Continue Protonix and advised the pat ient to move around, antiembolism hose for deep venous thrombosis prophylaxis. Jax Parks MD cc: [id number] TT: 08/09/2016 10:42:06 Confirmation # [id number] Dictation # [id number] en
[2016-08-09] MEDS ORDERED: Lactated Ringer's 1,000 ML IV SCH (13:52)
[2016-08-09] MEDS ORDERED: Propofol 10 mg/ml Inj (20 ML) ONE (14:08)
[2016-08-09] MEDS ORDERED: Midazolam 2 MG/2 ML VIAL ONE (14:09)
[2016-08-09] MEDS ORDERED: Rocuronium 10 mg/ml (5 ml) ONE (15:14)
[2016-08-09] MEDS ORDERED: Neostigmine Methylsulfate 3mg/3ml Syringe IV ONE (15:43)
[2016-08-09] MEDS ORDERED: Glycopyrrolate 0.2 mg/ml (2ml vial) ONE (15:45)
[2016-08-09 17:17] VITALS: BP 100/60; RESP 18
--- NOTE | 2016-08-09 22:50 | PN ---
DATE: 08/09/2016 Status post EUS, no chest pain, a little lethargic, but otherwise stable. No nausea, no vomiting. PHYSICAL EXAMINATION: VITAL SIGNS: Stable. Temperature 98.2, heart rate 80, blood pressure 121/71, respirations 16, satur ation 99% on 3 liter nasal cannula. HEAD AND NECK: Normal. No JVD, no thyromegaly. CHEST: Clear, good entry. CARDIAC: First sound and second sound normal. ABDOMEN: Soft, obese, mildly tender. EXTREMITIES: No edema. NEUROLOGIC: Normal. LABORATORY DATA: White count 6.1, hemoglobin 12.5, hematocrit 38.7, platelets 370. Chemistry shows sodium 140, potassium 3.7, chloride 100, bicarb 28, BUN 5, creatinine 0.7. Liver function test impro sally. His bilirubin is 0.6, AST 258, ALT 618, which is lower than before. IMPRESSION AND PLAN: Abdominal pain, problem biliary colic. The patient has abnormal liver function test, EUS was done today, which was negative for any common bile duct stones, sludge and gallstones . PLAN: Is to continue current treatment, repeat liver function test and discharge the patient to be f ollowed as an outpatient. Continue current treatment. I discussed the case with Dr. Burris, [facility] surgeon. His recommendation is not to do surgery now but wait the liver enzymes come down. Will g heather her antibiotic on discharge and will follow up as an outpatient with him next week. Jax Parks MD cc: [phone] TT: 08/09/2016 22:49:55 Confirmation # [id number] Dictation # [id number] dn
[2016-08-10] MEDS: metroNIDAZOLE IV 250mg/50 ml 250 MG/50 ML BAG IVPB SCH (05:04)
[2016-08-10 06:13] VITALS: PULSE 70; TEMP 98.5; O2SAT 94
[2016-08-10 08:35] LABS: BILIRUBIN,DIRECT 0.5 mg/dL (0.0-0.4); BILIRUBIN,TOTAL 0.7 mg/dL (0.2-1.3); TOTAL PROTEIN 7.8 g/dL (5.8-8.3)
[2016-08-10] MEDS: Dextrose 5%/0.45% NS 1,000 ML IV SCH (09:26)
[2016-08-10] MEDS: cefTRIAXone 1 gm 1 GM/100 ML BAG IVPB SCH (09:38)
[2016-08-10] MEDS: Morphine 2 mg/ml ISec IVP PRN (10:36)
--- NOTE | 2016-08-10 12:30 | PN ---
DATE: 08/10/2016 The patient is in room 360, bed 2. PHYSICAL EXAMINATION: VITAL SIGNS: Temperature is 98, blood pressure is 100/60, respiratory rate of 16. HEENT: Unremarkable. NECK: Supple. LUNGS: Have decreased breath sounds. HEART: Normal S1, S2. ABDOMEN: Soft. LABORATORY EXAMINATION: Reveals a white count of 6.1, hemoglobin of 12 and platelets of 370. Chemis tries reveal the BUN of 5, creatinine of 0.7. LFTs are elevated, but improving. Urinalysis is noted . Microbiology is noted. Dr. Parks's note is reviewed. ASSESSMENT AND PLAN: A 30-year-old female with gallstones, appendectomy, obesity, body mass index of 34 with acute cholecystitis, on Rocephin and Flagyl and the patient had ERCP and esophagogastroduode noscopy with results noted and case discussed with Dr. Parks. Saad Scruggs MD cc: [phone] TT: 08/10/2016 12:30:09 Confirmation # [id number] Dictation # [id number]
--- NOTE | 2016-08-11 22:48 | DS ---
The patient was admitted with abdominal pain, found to have a possible acute cholecystitis; however, her nuclear scan was negative. Her ultrasound shows gallstones. MRCP shows no common bile duct ston es. Also, she had an EUS by Dr. Eid, which shows sludge and gallstones, no common bile duct obs tructions and no acute cholecystitis. As per surgeon discussion, the patient could go home. Risks a nd benefit of discharge were discussed with the surgeon. The patient has to cool down first. We kristy l give her antibiotic of Vantin and will give her pain medicine, oxycodone, for the next few days. W ill see her in the office. Repeat liver function test to come down than before any surgery and then will proceed with surgery later. PHYSICAL EXAMINATION: GENERAL: Unchanged. She was stable. VITAL SIGNS: Afebrile, temperature 98. Heart rate 78, blood pressure 100/60, respirations 18, satur ation 95% on room air. HEAD AND NECK: Normal. No JVD, no thyromegaly. CHEST: Clear, good entry. CARDIAC: First sounds and second sounds are normal. ABDOMEN: Soft, tender in a different area on the right side, not in the epigastric or right upper qu adrant. There is no tenderness in the right upper quadrant anymore, only some discomfort and pain. NEUROLOGIC: Normal. LABORATORY DATA: Her liver function tests went down. On discharge, her LFTs show AST 129, ALT 430 w hich is a lot better; bilirubin is normal at 0.7. DISCHARGE DIAGNOSES: 1. Biliary colic. 2. Hepatitis. 3. Abnormal liver function tests due to gallstones. 4. The patient has also obesity. The patient was . She stopped . According to her there is no more milk co ronen out, so because of whatever happened in the hospital regarding antibiotic and medicine she takes . The patient will be discharged on p.o. Levaquin. Repeat liver function tests in a week. Prescrip tion was given to the patient and oxycodone also given to the patient. Jax Parks MD cc: [phone] TT: 08/11/2016 22:47:41 mn
[2016-08-14 19:00] LABS: LKM-1 Ab (IgG) <=20.0 U (<=20.0)
== END 2016-08-10 12:11 | disposition home or self-care (01) ==
LOC: ED 17:26 → ERH 19:54 → INTOOBSV 19:54 → ERH 20:40 → 3RNO 21:56
PROVIDERS: ADMIT Internal Medicine; ATTEND Internal Medicine
DX: O99.63 Diseases of the digestive system complicating the puerperium (principal); K80.20 Calculus of gallbladder without cholecystitis without obstruction; K75.9 Inflammatory liver disease, unspecified; E66.9 Obesity, unspecified; J98.11 Atelectasis; K21.9 Gastro-esophageal reflux disease without esophagitis; R74.0 Nonspecific elevation of levels of transaminase and lactic acid dehydrogenase [LDH]; R79.89 Other specified abnormal findings of blood chemistry; Z68.34 Body mass index [BMI] 34.0-34.9, adult; Z90.49 Acquired absence of other specified parts of digestive tract
CPT/HCPCS: 36415; 43259; 74177; 74181; 76700; 78227; 80053; 80074; 80076; 81001; 82150; 82390; 83516; 83690; 84703; 85025; 85610; 85730; 86039; 86255; 86376; 96361; 96365; 96366; 96367; 96375; 96376; 99283; A9537; C9113; G0378; J0696; J1885; J2001; J2250; J2270; J2405; J2704; J2710; J2765; J3010; J7040; J7042; Q9967

== ENCOUNTER 2016-08-27 22:50 | Inpatient (IN) | payer OTHER ==
--- NOTE | 2016-08-27 23:01 | EDPD ---
Arrival/HPI - General Time Seen by Provider: 08/27/16 22:55 Past Medical History - Infectious Disease Hx of Infectious Diseases: None - Psychiatric History Hx Physical Abuse: No Hx Emotional Abuse: No - Reproductive LMP Date: 06/09/16 Currently : No Currently Lactating: No - Suicidal Assessment Feels Threatened at Home: No Family/Social History Smoking Status: Never Smoked Hx Alcohol Use: No Hx Substance Use: No Allergies/Home Meds Allergies/Adverse Reactions: Allergies No Known Allergies Allergy (Verified 08/06/16 17:43) Disposition/Present on Arrival - Present on Arrival History of DVT/PE: No History of Uncontrolled Diabetes: No Urinary Catheter: No History Surgical Site Infection Followin - Disposition
[2016-08-27 23:29] VITALS: BMI 36.1
--- NOTE | 2016-08-27 23:36 | ED PDOC ---
Arrival/HPI - General Chief Complaint: Abdominal Pain Time Seen by Provider: 08/27/16 22:55 Historian: Patient - History of Present Illness Narrative History of Present Illness (Text): 08/27/16 23:32 Marielle Powell is a 30 year old female, with a history of recent cholecystectomy and appendectomy, presents to the emergency department complaining of abdominal pain. Patient had a cholecystectomy performed 5 days prior, but is unsure at which hospital. Denies any nausea, vomiting, or diarrhea. Denies any fever, chills, headache, dizziness, chest pain, shortness of breath, or any other complaints at this time. PMD: Symptom Onset: Gradual Symptom Course: Unchanged Severity Level: Mild Activities at Onset: Light Context: Home Past Medical History - Provider Review Nursing Documentation Reviewed: Yes - Infectious Disease Hx of Infectious Diseases: None - Cardiac Hx Cardiac Disorders: No Hx Pacemaker: No - Pulmonary Hx Respiratory Disorders: No - Neurological Hx Neurological Disorder: No - HEENT Hx HEENT Disorder: No - Renal Hx Renal Disorder: No - Endocrine/Metabolic Hx Endocrine Disorders: No - Hematological/Oncological Hx Blood Disorders: No Hx Blood Transfusions: No Hx Blood Transfusion Reaction: No - Integumentary Hx Dermatological Disorder: No - Musculoskeletal/Rheumatological Hx Musculoskeletal Disorders: No - Gastrointestinal Hx Gastrointestinal Disorders: Yes Other/Comment: Gall Stones - Genitourinary/Gynecological Hx Genitourinary Disorders: No - Psychiatric Hx Psychophysiologic Disorder: No Hx Emotional Abuse: No Hx Physical Abuse: No Hx Substance Use: No - Surgical History Other/Comment: unknown abdominal surgery - Anesthesia Hx Anesthesia: Yes Hx Anesthesia Reactions: No Hx Malignant Hyperthermia: No - Suicidal Assessment Feels Threatened In Home Enviroment: No Family/Social History - Physician Review Nursing Documentation Reviewed: Yes Family/Social History: No Known Family HX Smoking Status: Never Smoked Hx Alcohol Use: No Hx Substance Use: No Allergies/Home Meds Allergies/Adverse Reactions: Allergies No Known Allergies Allergy (Verified 08/27/16 23:29) Review of Systems - Physician Review All systems were reviewed & negative as marked: Yes - Review of Systems Constitutional: Normal. absent: Fatigue, Fevers Respiratory: Normal. absent: SOB, Cough, Sputum Cardiovascular: Normal. absent: Chest Pain, Palpitations Gastrointestinal: Abdominal Pain. absent: Diarrhea, Nausea, Vomiting Genitourinary Female: Normal. absent: Dysuria Musculoskeletal: Normal Neurological: Normal. absent: Headache, Dizziness Psychiatric: Normal Physical Exam Vital Signs Reviewed: Yes Vital Signs Temp Pulse Resp BP Pulse Ox 08/28/16 04:57 98.5 F 84 18 105/65 96 08/28/16 03:11 77 16 99/64 L 93 L 08/28/16 02:32 98.0 F 79 16 96/56 L 94 L 08/27/16 23:36 98.6 F 95 H 18 101/61 98 Temperature: Afebrile Blood Pressure: Normal Pulse: Regular Respiratory Rate: Normal Appearance: Positive for: Well-Appearing, Non-Toxic, Comfortable Pain Distress: None Mental Status: Positive for: Alert and Oriented X 3 - Systems Exam Head: Present: Atraumatic, Normocephalic Pupils: Present: PERRL Conjunctiva: Present: Normal Respiratory/Chest: Present: Clear to Auscultation, Good Air Exchange. No: Respiratory Distress, Accessory Muscle Use Cardiovascular: Present: Regular Rate and Rhythm, Normal S1, S2. No: Murmurs Abdomen: Present: Tenderness (diffuse tenderness ), Normal Bowel Sounds. No: Distention, Peritoneal Signs Upper Extremity: Present: Normal Inspection. No: Cyanosis, Edema Lower Extremity: Present: Normal Inspection. No: Edema Neurological: Present: GCS=15, CN II-XII Intact, Speech Normal, Motor Func Grossly Intact, Normal Sensory Function Skin: Present: Warm, Dry, Normal Color. No: Rashes Psychiatric: Present: Alert, Oriented x 3, Normal Insight, Normal Concentration Medical Decision Making ED Course and Treatment: 08/27/16 23:36 Impression: A 30 year old female who presents to the emergency department complaining of diffuse abdominal pain following recent cholecystectomy. Plan: -- CT abdomen pelvis -- Labs -- POC test -- Urinalysis -- Reassess and disposition Progress Notes: 08/28/16 03:47 CT abdomen pelvis results reviewed: IMPRESSION: 1. Pneumoperitoneum, indeterminant significance but possibly related to recent surgery. Correlate with surgical history. 2. Cholecystectomy. Minimal stranding within gallbladder fossa without definite collection. 3. Small bilateral pleural effusions with bibasilar atelectasis. 08/28/16 04:14 Case discussed with who is aware and agrees with the plan to admit patient to telemetry for abdominal pain. Accepts patient under his service with on surgical consult. - Lab Interpretations Lab Results: 08/28/16 00:05 08/28/16 00:05 Lab Results 08/28/16 01:04: Urine Color Yellow, Urine Appearance Sl cloudy, Urine pH 7.5, Ur Specific [place] 1.020, Urine Protein Trace H, Urine Glucose (UA) Negative, Urine Ketones Negative, Urine Blood Trace-intact H, Urine Nitrate Negative, Urine Bilirubin Negative, Urine Urobilinogen 0.2, Ur Leukocyte Esterase Negative , Urine RBC 0 - 2, Urine WBC 1 - 3, Ur Epithelial Cells 3 - 4, Urine Bacteria Occ 08/28/16 00:05: Sodium 139, Potassium 4.4, Chloride 98, Carbon Dioxide 28, Anion Gap 17, BUN 12, Creatinine 0.8, Est GFR ( Amer) > 60, Est GFR (Non- Af Amer) > 60, Random Glucose 149 H, Calcium 10.2, Total Bilirubin 0.7, AST 287 H, ALT 176 H, Alkaline Phosphatase 182 H, Total Protein 8.5 H, Albumin 4.7, Globulin 3.8, Albumin/Globulin Ratio 1.2, Lipase 115 08/28/16 00:05: PT 9.9, INR 0.92 L, APTT 26.6 08/28/16 00:05: WBC 11.7 H D, RBC 4.90, Hgb 13.1, Hct 40.0, MCV 81.6, MCH 26.7, MCHC 32.8, RDW 14.6 H, Plt Count 358, MPV 9.3, Gran % 72.9 H, Lymph % (Auto) 20.1 L, Park % (Auto) 5.0, Eos % (Auto) 1.7, Baso % (Auto) 0.3, Gran # 8.52 H, Lymph # 2.4, Park # 0.6, Eos # 0.2, Baso # 0.04 I have reviewed the lab results: Yes - RAD Interpretation Narrative RAD Interpretations (Text): EXAM: CT Abdomen and Pelvis Without Intravenous Contrast FINDINGS: Limitations: Motion artifact - mild. Lack of intravenous contrast. Lower thorax: Mild atelectasis/scarring. Small bilateral pleural effusions. ABDOMEN: Liver: Fatty infiltration. Gallbladder and bile ducts: Cholecystectomy. Minimal stranding within gallbladder fossa. No discrete fluid collection. No ductal dilation. Pancreas: Unremarkable. No ductal dilation. Spleen: No splenomegaly. Adrenals: No mass. Kidneys and ureters: No renal calculi. No hydronephrosis. Stomach and bowel: Segmental areas of underdistention of LEFT colon. No definite mural thickening. No obstruction. Appendix: Probable appendectomy. PELVIS: Bladder: Unremarkable. No stones. Reproductive: IUD. ABDOMEN and PELVIS: Intraperitoneal space: Small free fluid within pelvis. Few scattered foci of extraluminal air within abdomen. Bones/joints: No acute fracture. Soft tissues: Mild stranding about umbilicus. Vasculature: Unremarkable. No abdominal aortic aneurysm. Lymph nodes: No pathologically enlarged lymph nodes. IMPRESSION: 1. Pneumoperitoneum, indeterminant significance but possibly related to recent surgery. Correlate with surgical history. 2. Cholecystectomy. Minimal stranding within gallbladder fossa without definite collection. 3. Small bilateral pleural effusions with bibasilar atelectasis. 4. Incidental/non-acute findings are described above. Radiology Orders: 08/27/16 23:32 ABD & PELVIS W/O PO OR IV CONT [CT] Stat Plumbing Manager: Radiologist - Medication Orders Current Medication Orders: Bisacodyl (Dulcolax) 10 mg RC DAILY [facility] Stop: 09/03/16 10:01 Meropenem 1g/NS 100mL IVPB (Meropenem 1g/Ns 100ml Ivpb) 1 gm in 100 mls @ 100 mls/hr IVPB Q8 [facility] PRN Reason: Protocol Stop: 09/04/16 10:01 Last Admin: 08/28/16 18:14 Dose: 100 mls/hr Ketorolac Tromethamine (Toradol) 15 mg IVP Q6H [facility] Stop: 08/29/16 22:16 Last Admin: 08/28/16 18:23 Dose: 15 mg Morphine Sulfate (Morphine) 2 mg IVP Q4H PRN PRN Reason: Pain, moderate (4-7) Last Admin: 08/28/16 10:23 Dose: 2 mg Re-Assess: [facility] Pain Assessment Document 08/28/16 11:23 RV (Rec: 08/28/16 18:24 [id number]) Pain Reassessment Is this a pain reassessment? Yes Sleep Is patient sleeping during reassessment? Yes Presence of Pain Presence of Pain Yes Pantoprazole Sodium (Protonix Inj) 40 mg IVP DAILY [facility] Last Admin: 08/28/16 10:23 Dose: 40 mg Ursodiol (Actigall) 300 mg PO BID [facility] Last Admin: 08/28/16 18:14 Dose: 300 mg Discontinued Medications Bisacodyl (Dulcolax) 10 mg RC ONCE ONE Stop: 08/28/16 16:01 Last Admin: 08/28/16 18:33 Dose: Bisacodyl (Dulcolax) 10 mg RC ONCE ONE Stop: 08/28/16 18:32 Last Admin: 08/28/16 18:39 Dose: 10 mg Hydromorphone HCl (Dilaudid) 2 mg IVP STAT STA Stop: 08/28/16 00:48 Last Admin: 08/28/16 01:06 Dose: 2 mg Sodium Chloride (Sodium Chloride 0.9%) 1,000 mls @ 80 mls/hr IV .[id number] [facility] Last Admin: 08/28/16 01:08 Dose: 80 mls/hr Metronidazole (Flagyl) 500 mg in 100 mls @ 100 mls/hr IVPB STAT STA PRN Reason: Protocol Stop: 08/28/16 04:11 Last Admin: 08/28/16 05:07 Dose: 100 mls/hr Ceftriaxone Sodium (Rocephin 1 Gram Ivpb) 1 gm in 100 mls @ 200 mls/hr IVPB STAT STA PRN Reason: Protocol Stop: 08/28/16 03:40 Last Admin: 08/28/16 05:48 Dose: 200 mls/hr Vancomycin HCl (Vancomycin 1gm) 1 gm in 250 mls @ 167 mls/hr IVPB STAT STA PRN Reason: Protocol Stop: 08/28/16 11:16 Last Admin: 08/28/16 10:25 Dose: 167 mls/hr Magnesium Citrate (Citrate Of Mag) 300 ml PO ONCE ONE Stop: 08/28/16 15:55 Last Admin: 08/28/16 18:33 Dose: Magnesium Citrate (Citrate Of Mag) 300 ml PO ONCE ONE Stop: 08/28/16 18:31 Last Admin: 08/28/16 18:39 Dose: 300 ml Ondansetron HCl (Zofran Inj) 4 mg IVP STAT STA Stop: 08/28/16 00:48 Last Admin: 08/28/16 01:08 Dose: 4 mg Pneumococcal Polyvalent Vaccine (Pneumovax 23 Vaccine) 0.5 ml IM .ONCE ONE Stop: 08/28/16 16:29 Polyethylene Glycol (Miralax) 17 gm PO ONCE ONE Stop: 08/28/16 08:37 Last Admin: 08/28/16 10:25 Dose: 17 gm - Scribe Statement The provider has reviewed the documentation as recorded by the Dana Nowak Provider Attestation: All medical record entries made by the Dana were at my direction and personally dictated by me. I have reviewed the chart and agree that the record accurately reflects my personal performance of the history, physical exam, medical decision making, and the department course for this patient. I have also personally directed, reviewed, and agree with the discharge instructions and disposition. Disposition/Present on Arrival - Present on Arrival Any Indicators Present on Arrival: No History of DVT/PE: No History of Uncontrolled Diabetes: No Urinary Catheter: No History of Decub. Ulcer: No History Surgical Site Infection Following: None - Disposition Have Diagnosis and Disposition been Completed?: Yes Diagnosis: Abdominal pain Disposition: HOSPITALIZED Disposition Time: 04:00 Condition: GOOD
[2016-08-28 00:31] LABS: ADD MANUAL DIFF? NO
[2016-08-28 00:42] LABS: INR 0.92 (0.93-1.08); PARTIAL THROMBOPLASTIN TIME 26.6 Seconds (23.7-30.8)
[2016-08-28 00:44] LABS: BASO # 0.04 K/mm3 (0.0-2.0); BASO % 0.3 % (0.0-3.0); EOS # 0.2 (0.0-0.7); EOS % 1.7 % (1.5-5.0); GRAN # 8.52 (1.4-6.5); GRAN % 72.9 % (50.0-68.0); LYMPH # 2.4 (1.2-3.4); LYMPH % 20.1 % (22.0-35.0); MEAN CELL VOLUME 81.6 fL (80.0-105.0); MEAN CORPUSCULAR HEMOGLOBIN 26.7 pg (25.0-35.0); MEAN CORPUSCULAR HGB CONC 32.8 g/dl (31.0-37.0); MEAN PLATELET VOLUME 9.3 fl (7.0-11.0); MONO # 0.6 (0.1-0.6); PLATELET COUNT 358 10^3/uL (120.0-450.0); RED CELL DISTRIBUTION WIDTH 14.6 % (11.5-14.5); WHITE BLOOD COUNT 11.7 10^3/ul (4.5-11.0)
[2016-08-28] MEDS ORDERED: HYDROmorphone 2 mg/ml ISec IVP STA (00:47)
[2016-08-28 00:53] LABS: ALB/GLOB RATIO 1.2 (1.1-1.8); ALKALINE PHOSPHATASE 182 U/L (38-133); ALT/SGPT 176 U/L (7-56); AST/SGOT 287 U/L (15-39); BILIRUBIN,TOTAL 0.7 mg/dL (0.2-1.3); BLOOD UREA NITROGEN 12 mg/dL (7-21); CALCIUM 10.2 mg/dL (8.4-10.5); CARBON DIOXIDE 28 mmol/L (21-33); CHLORIDE 98 mmol/L (95-110); GFR AFRICAN-AMERICAN > 60; GLUCOSE,RANDOM 149 mg/dL (70-110); LIPASE 115 U/L (23-300); POTASSIUM 4.4 mmol/L (3.6-5.0); SODIUM 139 mmol/L (132-148); TOTAL PROTEIN 8.5 g/dL (5.8-8.3)
[2016-08-28] MEDS ORDERED: Sodium Chloride 0.9% 1,000 ML IV SCH (01:00)
[2016-08-28 01:34] LABS: PH,URINE 7.5 (4.7-8.0); URINE BILIRUBIN NEGATIVE (NEGATIVE); URINE BLOOD TRACE-INTACT (NEGATIVE); URINE GLUCOSE (UA) NEGATIVE (NEGATIVE); URINE KETONE NEGATIVE (NEGATIVE); URINE LEUKOCYTE ESTERASE NEGATIVE Leu/uL (NEGATIVE); URINE PROTEIN TRACE mg/dL (<30 mg/dL); URINE UROBILINOGEN 0.2 E.U./dL (<1 E.U./dL)
[2016-08-28 01:43] LABS: URINE APPEARANCE SL CLOUDY (CLEAR); URINE COLOR YELLOW (YELLOW)
[2016-08-28 01:46] LABS: URINE RBC 0 - 2 /hpf (0-2)
[2016-08-28 01:47] LABS: URINE BACTERIA OCC (NEG)
--- NOTE | 2016-08-28 02:35 | CT ---
EXAM: CT Abdomen and Pelvis Without Intravenous Contrast CLINICAL HISTORY: 30 years old, female; Pain; Abdominal pain; Generalized; Additional info: Abd pain TECHNIQUE: Axial computed tomography images of the abdomen and pelvis without intravenous contrast. This CT exam was performed using one or more of the following dose reduction techniques: automated exposure control, adjustment of the mA and/or kV according to patient size, and/or use of iterative reconstruction technique. Coronal and sagittal reformatted images were created and reviewed. COMPARISON: CT - ABD PELVIS IV CONTRAST ONLY 08/06/2016 9:07:20 PM FINDINGS: Limitations: Motion artifact - mild. Lack of intravenous contrast. Lower thorax: Mild atelectasis/scarring. Small bilateral pleural effusions. ABDOMEN: Liver: Fatty infiltration. Gallbladder and bile ducts: Cholecystectomy. Minimal stranding within gallbladder fossa. No discrete fluid collection. No ductal dilation. Pancreas: Unremarkable. No ductal dilation. Spleen: No splenomegaly. Adrenals: No mass. Kidneys and ureters: No renal calculi. No hydronephrosis. Stomach and bowel: Segmental areas of underdistention of LEFT colon. No definite mural thickening. No obstruction. Appendix: Probable appendectomy. PELVIS: Bladder: Unremarkable. No stones. Reproductive: IUD. ABDOMEN and PELVIS: Intraperitoneal space: Small free fluid within pelvis. Few scattered foci of extraluminal air within abdomen. Bones/joints: No acute fracture. Soft tissues: Mild stranding about umbilicus. Vasculature: Unremarkable. No abdominal aortic aneurysm. Lymph nodes: No pathologically enlarged lymph nodes. IMPRESSION: 1. Pneumoperitoneum, indeterminant significance but possibly related to recent surgery. Correlate with surgical history. 2. Cholecystectomy. Minimal stranding within gallbladder fossa without definite collection. 3. Small bilateral pleural effusions with bibasilar atelectasis. 4. Incidental/non-acute findings are described above.
[2016-08-28] MEDS: Morphine 2 mg/ml ISec IVP PRN ×2 (04:40→10:23)
[2016-08-28] MEDS: metroNIDAZOLE IV 500 mg/100 ml 500 MG/100 ML BAG IVPB STA ×2 (04:40→05:07)
[2016-08-28] MEDS: cefTRIAXone 1 gm 1 GM/100 ML BAG IVPB STA ×2 (05:07→05:48)
[2016-08-28] MEDS ORDERED: POLYETHYLENE GLYCOL 3350 17 GM/Dose PACKET PO ONE (08:36)
--- NOTE | 2016-08-28 09:06 | CP.PCM.CON ---
History of Present Illness - History of Present Illness History of Present Illness: General Surgery Consult Note for Dr. Ely 30 F with no significant PMHx [place] [facility] [place] complaints of epigastric pain. Pt was recently hospitalized earlier this month at [facility] for concerns of acute cholecystitis and subsequently discharged with follow up with surgery as outpt. However, as per pt, she recently had laproscopic cholecystectomy approx 5 days ago. Pt still has dressing in place from procedure. She began feeling localized epigastric pain and decided to come into the hospital for concerns of complications with the surgery. Pt has not passed a bm however is passing flatus. She denied fever, chills, n/v. She reports mild epigastric pain. PMHx: Obesity, appendicitis, cholecystitis PSHx: Appendectomy, Cholecystectomy SHx: with childre, denied tobacco/etoh/drugs FamHx: Non-contributory PMD: Dr. Parks Review of Systems - Review of Systems Review of Systems: as per HPI otherwise negative Past Patient History - Infectious Disease Hx of Infectious Diseases: None - Past Social History Smoking Status: Never Smoked - CARDIAC Hx Cardiac Disorders: No Hx Pacemaker: No - PULMONARY Hx Respiratory Disorders: No - NEUROLOGICAL Hx Neurological Disorder: No - HEENT Hx HEENT Problems: No - RENAL Hx Chronic Kidney Disease: No - ENDOCRINE/METABOLIC Hx Endocrine Disorders: No - HEMATOLOGICAL/ONCOLOGICAL Hx Blood Disorders: No Hx Blood Transfusions: No Hx Blood Transfusion Reaction: No - INTEGUMENTARY Hx Dermatological Problems: No - MUSCULOSKELETAL/RHEUMATOLOGICAL Hx Musculoskeletal Disorders: No - GASTROINTESTINAL Hx Gastrointestinal Disorders: Yes Other/Comment: Gall Stones - GENITOURINARY/GYNECOLOGICAL Hx Genitourinary Disorders: No - PSYCHIATRIC Hx Psychophysiologic Disorder: No Hx Emotional Abuse: No Hx Physical Abuse: No Hx Substance Use: No - SURGICAL HISTORY Other/Comment: unknown abdominal surgery - ANESTHESIA Hx Anesthesia: Yes Hx Anesthesia Reactions: No Hx Malignant Hyperthermia: No Meds Allergies/Adverse Reactions: Allergies Allergy/AdvReac Type Severity Reaction Status Date / Time No Known Allergies Allergy Verified 08/27/16 23:29 - Medications Medications: Current Medications Morphine Sulfate (Morphine) 2 mg IVP Q4H PRN PRN Reason: Pain, moderate (4-7) Last Admin: 08/28/16 04:40 Dose: 2 mg Physical Exam - Constitutional Appears: Well, No Acute Distress - Head Exam Head Exam: ATRAUMATIC, NORMAL INSPECTION, NORMOCEPHALIC - Eye Exam Eye Exam: EOMI, Normal appearance, PERRL Pupil Exam: NORMAL ACCOMODATION, PERRL - ENT Exam ENT Exam: Mucous Membranes Moist, Normal Exam - Neck Exam Neck exam: Positive for: Normal Inspection - Respiratory Exam Respiratory Exam: Clear to Auscultation Bilateral, NORMAL BREATHING PATTERN - Cardiovascular Exam Cardiovascular Exam: REGULAR RHYTHM, +S1, +S2 - GI/Abdominal Exam GI & Abdominal Exam: Normal Bowel Sounds, Soft, Tenderness (epigastrum) - Extremities Exam Extremities exam: Positive for: normal inspection. Negative for: pedal edema - Neurological Exam Neurological exam: Alert, CN II-XII Intact, Normal Gait, Oriented x3, Reflexes Normal - Psychiatric Exam Psychiatric exam: Normal Affect, Normal Mood - Skin Skin Exam: Dry, Intact, Normal Color, Warm Results - Vital Signs Recent Vital Signs: Last Vital Signs Temp 98.5 F 08/28/16 04:57 Pulse 84 08/28/16 04:57 Resp 18 08/28/16 04:57 BP 105/65 08/28/16 04:57 Pulse Ox 96 08/28/16 04:57 - Labs Result Diagrams: 08/28/16 00:05 08/28/16 00:05 Assessment & Plan - Assessment and Plan (Free Text) Assessment: 30 F with post-op pain s/p lap cholecystectomy - analgesia - Miralax and OOB - We will advance diet as tolerated. If pt is tolerating regular diet then ok to DC home seen reviewed and discussed with attending
[2016-08-28] MEDS ORDERED: Vancomycin 1gm in NS 250ml 1 GM/250 ML BAG IVPB STA (09:47)
[2016-08-28] MEDS: Meropenem 1g/NS 100mL IVPB 1 GM/100 ML PIGGYBACK IVPB SCH ×3 (10:25→21:47)
--- NOTE | 2016-08-28 11:04 | CP.PCM.CON ---
<Tyree Johnson - Last Filed: 08/28/16 11:00> History of Present Illness - History of Present Illness History of Present Illness: GI consult for Dr. Eid 30 F with no significant PMHx presents to [facility] with complaints of epigastric pain. Pt was recently hospitalized earlier this month at [facility] for concerns of acute cholecystitis and subsequently discharged with follow up with surgery as outpt. She recently had laproscopic cholecystectomy approx 5 days ago. Pt still has dressing in place from procedure. She began feeling localized epigastric pain and decided to come into the hospital for concerns of complications with the surgery. Pt reports having 1 episodes of vomiting and diarrhea. Non bloody , non bilious. She denied fever, chills. She reports mild epigastric pain. Denies drinking, smoking or drug abuse. Pt recently had a baby 6month ago. PMHx: Obesity, appendicitis, cholecystitis PSHx: Appendectomy, Cholecystectomy SHx: with children, denied tobacco/etoh/drugs FamHx: Non-contributory PMD: Dr. Parks Review of Systems - Review of Systems Review of Systems: See HPI Past Patient History - Infectious Disease Hx of Infectious Diseases: None - Past Social History Smoking Status: Never Smoked - CARDIAC Hx Cardiac Disorders: No Hx Pacemaker: No - PULMONARY Hx Respiratory Disorders: No - NEUROLOGICAL Hx Neurological Disorder: No - HEENT Hx HEENT Problems: No - RENAL Hx Chronic Kidney Disease: No - ENDOCRINE/METABOLIC Hx Endocrine Disorders: No - HEMATOLOGICAL/ONCOLOGICAL Hx Blood Disorders: No Hx Blood Transfusions: No Hx Blood Transfusion Reaction: No - INTEGUMENTARY Hx Dermatological Problems: No - MUSCULOSKELETAL/RHEUMATOLOGICAL Hx Musculoskeletal Disorders: No - GASTROINTESTINAL Hx Gastrointestinal Disorders: Yes Other/Comment: Gall Stones - GENITOURINARY/GYNECOLOGICAL Hx Genitourinary Disorders: No - PSYCHIATRIC Hx Psychophysiologic Disorder: No Hx Emotional Abuse: No Hx Physical Abuse: No Hx Substance Use: No - SURGICAL HISTORY Other/Comment: unknown abdominal surgery - ANESTHESIA Hx Anesthesia: Yes Hx Anesthesia Reactions: No Hx Malignant Hyperthermia: No Meds Home Medications: Home Medication List Medication Instructions Recorded Confirmed Type Pantoprazole Sodium [Protonix] 40 mg PO DAILY #30 ect 09/01/16 Rx Allergies/Adverse Reactions: Allergies Allergy/AdvReac Type Severity Reaction Status Date / Time No Known Allergies Allergy Verified 08/27/16 23:29 - Medications Medications: Current Medications Meropenem 1g/NS 100mL IVPB (Meropenem 1g/Ns 100ml Ivpb) 1 gm in 100 mls @ 100 mls/hr IVPB Q8 [facility] PRN Reason: Protocol Stop: 09/04/16 10:01 Last Admin: 08/28/16 10:25 Dose: 100 mls/hr Vancomycin HCl (Vancomycin 1gm) 1 gm in 250 mls @ 167 mls/hr IVPB STAT STA PRN Reason: Protocol Stop: 08/28/16 11:16 Last Admin: 08/28/16 10:25 Dose: 167 mls/hr Morphine Sulfate (Morphine) 2 mg IVP Q4H PRN PRN Reason: Pain, moderate (4-7) Last Admin: 08/28/16 10:23 Dose: 2 mg Pantoprazole Sodium (Protonix Inj) 40 mg IVP DAILY [facility] Last Admin: 08/28/16 10:23 Dose: 40 mg Physical Exam - Constitutional Appears: No Acute Distress - Head Exam Head Exam: ATRAUMATIC, NORMAL INSPECTION, NORMOCEPHALIC - Eye Exam Eye Exam: EOMI, Normal appearance, PERRL Pupil Exam: NORMAL ACCOMODATION, PERRL - ENT Exam ENT Exam: Mucous Membranes Moist, Normal Exam - Neck Exam Neck exam: Positive for: Normal Inspection - Respiratory Exam Respiratory Exam: Clear to Auscultation Bilateral, NORMAL BREATHING PATTERN - Cardiovascular Exam Cardiovascular Exam: REGULAR RHYTHM - GI/Abdominal Exam GI & Abdominal Exam: Normal Bowel Sounds, Soft, Tenderness. absent: Distended, Firm, Guarding, Hernia, Rebound, Rigid Additional comments: Epigatric RUQ TTP. Dressings in place. D/I. - Exam Exam: NORMAL INSPECTION - Extremities Exam Extremities exam: Positive for: full ROM, normal inspection, pedal pulses present - Back Exam Back exam: NORMAL INSPECTION - Neurological Exam Neurological exam: Alert, CN II-XII Intact, Normal Gait, Oriented x3, Reflexes Normal - Psychiatric Exam Psychiatric exam: Normal Affect, Normal Mood - Skin Skin Exam: Dry, Intact, Normal Color, Warm Results - Vital Signs Recent Vital Signs: Last Vital Signs Temp 98.5 F 08/28/16 04:57 Pulse 84 08/28/16 04:57 Resp 18 08/28/16 04:57 BP 105/65 08/28/16 04:57 Pulse Ox 96 08/28/16 04:57 - Labs Result Diagrams: 08/28/16 00:05 08/28/16 00:05 Assessment & Plan - Assessment and Plan (Free Text) Assessment: 30 F with PMH of Cholelithiasis came with abd pain s/p lap alireza POD 5 outside of hospital Elevated LFT s/p lap cholecystectomy POD 5 CT : s/p cholecystectomy. No acute findings No leukocytosis -f/u abd US -Diet per primary -Pain control -Nausea control -F/U Labs /LFT Will DW Dr. Eid <Mariama Eid V - Last Filed: 10/16/16 14:47> Results - Vital Signs Recent Vital Signs: Last Vital Signs Temp 98.6 F 09/01/16 06:00 Pulse 68 09/01/16 06:00 Resp 20 09/01/16 06:00 BP 94/57 L 09/01/16 06:00 Pulse Ox 96 09/01/16 06:00 - Labs Result Diagrams: 09/01/16 07:47 09/01/16 07:47 Assessment & Plan - Assessment and Plan (Free Text) Assessment: See dictated consult addendum
[2016-08-28] MEDS ORDERED: Pneumococcal 23-Valent Vaccine IM ONE (16:28)
[2016-08-28] MEDS: Magnesium Citrate Oral SOL (300 ml) PO ONE ×2 (18:14→18:33)
[2016-08-28] MEDS ORDERED: Magnesium Citrate Oral SOL (300 ml) PO ONE (18:30)
--- NOTE | 2016-08-28 21:27 | CP.PCM.CON ---
History of Present Illness - History of Present Illness History of Present Illness: 30 year old female with PMH of gallstones, S/P appendectomy, obesity with BMI 36 , was recnetly hospitalized for acute cholecystitis and was managed conservatively and she dfollowed up as an outpatient. She then underwent laparsocopic about 5-6 days ago and apparently did well until yesterday, when she started having abdominal pain, mostly in the epigastric area with some nausea but no vomiting. The patient denies fever or chills, no headache or dizziness, o chest pain, no SOB, no cough or colds, no sore throat, no diarrhea , no dysuria, no diarrhea. CT scan of the abdomen and pelvis shows pneumoperitoneum and Infectious Diseases consult is requested to further evaluate and manage. Review of Systems - Review of Systems All systems: reviewed and no additional remarkable complaints except (as per HPI ) Past Patient History - Infectious Disease Hx of Infectious Diseases: None - Past Social History Smoking Status: Never Smoked - CARDIAC Hx Cardiac Disorders: No Hx Pacemaker: No - PULMONARY Hx Respiratory Disorders: No - NEUROLOGICAL Hx Neurological Disorder: No - HEENT Hx HEENT Problems: No - RENAL Hx Chronic Kidney Disease: No - ENDOCRINE/METABOLIC Hx Endocrine Disorders: No - HEMATOLOGICAL/ONCOLOGICAL Hx Blood Disorders: No Hx Blood Transfusions: No Hx Blood Transfusion Reaction: No - INTEGUMENTARY Hx Dermatological Problems: No - MUSCULOSKELETAL/RHEUMATOLOGICAL Hx Musculoskeletal Disorders: No - GASTROINTESTINAL Hx Gastrointestinal Disorders: Yes Other/Comment: Gall Stones - GENITOURINARY/GYNECOLOGICAL Hx Genitourinary Disorders: No - PSYCHIATRIC Hx Psychophysiologic Disorder: No Hx Emotional Abuse: No Hx Physical Abuse: No Hx Substance Use: No - SURGICAL HISTORY Other/Comment: unknown abdominal surgery - ANESTHESIA Hx Anesthesia: Yes Hx Anesthesia Reactions: No Hx Malignant Hyperthermia: No Meds Allergies/Adverse Reactions: Allergies Allergy/AdvReac Type Severity Reaction Status Date / Time No Known Allergies Allergy Verified 08/27/16 23:29 - Medications Medications: Current Medications Morphine Sulfate (Morphine) 2 mg IVP Q4H PRN PRN Reason: Pain, moderate (4-7) Last Admin: 08/28/16 04:40 Dose: 2 mg Pantoprazole Sodium (Protonix Inj) 40 mg IVP DAILY [facility] Physical Exam - Constitutional Appears: Non-toxic, No Acute Distress - Head Exam Head Exam: NORMAL INSPECTION - ENT Exam ENT Exam: Mucous Membranes Moist - Neck Exam Neck exam: Negative for: Lymphadenopathy, Meningismus - Respiratory Exam Respiratory Exam: Decreased Breath Sounds - Cardiovascular Exam Cardiovascular Exam: +S1, +S2 - GI/Abdominal Exam GI & Abdominal Exam: Soft. absent: Tenderness Results - Vital Signs Recent Vital Signs: Last Vital Signs Temp 98.5 F 08/28/16 04:57 Pulse 84 08/28/16 04:57 Resp 18 08/28/16 04:57 BP 105/65 08/28/16 04:57 Pulse Ox 96 08/28/16 04:57 - Labs Result Diagrams: 08/28/16 00:05 08/28/16 00:05 Assessment & Plan - Assessment and Plan (Free Text) Plan: Assessment Pneumoperitoneum probably related to recent surgery, R/O bowel perforation acute cholecystitis S/P laparoscopic cholecystectomy history of gallstones S/P appendectomy obesity with BMI 34 Plan started patient on Merrem pending blood cx; follow up Surgery evaluation Will monitor clinically
[2016-08-28] MEDS ORDERED: Oxycodone/Acetaminophen 5/325 mg Tab PO PRN (22:00)
--- NOTE | 2016-08-28 23:58 | CON ---
DATE: 08/28/2016 ADDENDUM The patient was seen and evaluated earlier today. This is an addendum to the GI consultation report dictated by Dr. Johnson. This 30-year-old patient recently had a laparoscopic cholecystectomy outside the [facility] facility at an outside facility. The patient is not sure about the intraoperative cholangiogram status. The patient is now admitted with abdominal pain, elevated LFTs. LFTs appear to be much higher than before when the patient was discharged on 08/13. The last LFTs about 2 weeks ago showed a downward trend. Suspect that probably passed a stone. Now, the LFTs appear to be elevated. The plan is to repeat the MRCP and repeat EUS, possible ERCP, which we will consider after reviewing the MRCP to rule out any bile duct stone. Thank you very much for allowing me to participate in the care of the patient. Will continue to closely follow up her care. Mariama Eid MD cc: [id number] TT: 08/28/2016 23:57:47 Confirmation # [id number] Dictation # [id number] josé GUERRERO
[2016-08-29] MEDS: Meropenem 1g/NS 100mL IVPB 1 GM/100 ML PIGGYBACK IVPB SCH (05:15)
[2016-08-29] MEDS ORDERED: Iohexol 240 (50 ml) ONE (07:09)
[2016-08-29 08:04] LABS: ADD MANUAL DIFF? NO
[2016-08-29 08:08] LABS: BASO # 0.03 K/mm3 (0.0-2.0); BASO % 0.6 % (0.0-3.0); EOS # 0.1 (0.0-0.7); EOS % 2.7 % (1.5-5.0); GRAN # 3.58 (1.4-6.5); GRAN % 67.9 % (50.0-68.0); HEMATOCRIT 37.5 % (36.0-48.0); LYMPH # 1.2 (1.2-3.4); LYMPH % 23.5 % (22.0-35.0); MEAN CELL VOLUME 81.2 fL (80.0-105.0); MEAN CORPUSCULAR HEMOGLOBIN 26.2 pg (25.0-35.0); MEAN CORPUSCULAR HGB CONC 32.3 g/dl (31.0-37.0); MEAN PLATELET VOLUME 9.5 fl (7.0-11.0); MONO # 0.3 (0.1-0.6); MONO % 5.3 % (1.0-6.0); PLATELET COUNT 300 10^3/uL (120.0-450.0); RED CELL DISTRIBUTION WIDTH 14.7 % (11.5-14.5); WHITE BLOOD COUNT 5.3 10^3/ul (4.5-11.0)
[2016-08-29 08:16] LABS: ALB/GLOB RATIO 1.1 (1.1-1.8); BILIRUBIN,DIRECT 2.1 mg/dL (0.0-0.4); BILIRUBIN,TOTAL 2.7 mg/dL (0.2-1.3); TOTAL PROTEIN 7.8 g/dL (5.8-8.3)
[2016-08-29] MEDS ORDERED: Dextrose 5%/0.45% NS 1,000 ML IV SCH (11:00)
[2016-08-29 11:54] LABS: ALB/GLOB RATIO 1.2 (1.1-1.8); BILIRUBIN,DIRECT 2.7 mg/dL (0.0-0.4); BILIRUBIN,TOTAL 3.2 mg/dL (0.2-1.3); TOTAL PROTEIN 8.4 g/dL (5.8-8.3)
--- NOTE | 2016-08-29 11:59 | HP ---
CHIEF COMPLAINT: A 30-year-old female came in with abdominal pain. HISTORY OF PRESENT ILLNESS: A 30-year-old female status post laparoscopic cholecystectomy at [facility] by . The patient came into the hospital because of abdominal pain that got worse after eating regular food, which happened 2 days ago. The day before admission she tried a gain to eat regular food and she got more pain, more in the upper abdomen. There is no vomiting, but she has pain all day. The patient came into the ER for further evaluation. She denied any fever, a ny vomiting. Pain was persistent for almost a few hours after she ate and that is what made her come to the ER. The patient took oxycodone as prescribed for pain relief, which helped a little and brou ght into the ER. There is no diarrhea. No fever, no nausea. No other complaint. PAST MEDICAL HISTORY: As above. She is status post cholecystectomy for gallstones, gallbladder. Th e patient did have ERCP before. She was seen by gastroenterology, Dr. Eid. ALLERGIES: No known allergies. SOCIAL HISTORY: She lives with her . She has 4 children. No smoking, no drinking. FAMILY HISTORY: Noncontributory. PHYSICAL EXAMINATION: On admission: VITAL SIGNS: Temperature 97.6, heart rate 83, blood pressure 109/70, respirations 19, saturating 98% . HEAD AND NECK: Normal. No JVD, no thyromegaly. CHEST: Clear, good entry. CARDIAC: First and second sounds are normal. ABDOMEN: Soft. There is tenderness mainly in the epigastric area. There is also tenderness at the site of surgery. EXTREMITIES: No edema. NEUROLOGIC: Normal. LABORATORY DATA: White count 11.7, hemoglobin 16.1, hematocrit 48.0, platelets 358. PT, PTT within normal range. Sodium 139, potassium 4.4, chloride 98, bicarbonate 28, BUN is 12, creatinine 0.8, ran dom blood sugar 149. Liver function test, AST 287, ALT 176. Alkaline phosphatase 182, total protein 85. Also, patient had a CT abdomen and pelvis which was noted for stranding at the gallbladder fossa, ot erwise there are no acute findings. There was free air from pneumoperitoneum during the procedure. Otherwise, negative. IMPRESSION AND PLAN: Abdominal pain etiology, rule out any gallstones in the common bile duct. Shanon rointestinal consult, Dr. Eid. We will put the patient on IV antibiotics. The patient also kristy l be kept n.p.o. except as a surgical consult, whatever surgery consult recommends for diet. We will repeat liver function test tomorrow. We will give her Protonix IV and will continue Actigall. Dayna angie current treatment. Follow up with GI and surgical consults. According to the assistant vice president, patient does not have any acute surgical emergency now; however, common bile duct stone or gravel wh ich can cause symptoms could be part of the symptoms. We will continue followup. Continue IV fluids . Follow up clinically. Jax Parks MD cc: [id number] TT: 08/29/2016 11:58:15 mimi
--- NOTE | 2016-08-29 12:29 | CON ---
DATE: 08/29/2016 REASON FOR DICTATION: Elevated liver enzymes. HISTORY OF PRESENT ILLNESS: The patient is a 30-year-old female status post laparoscopic cholecystec danielle 6 days ago uneventful. The patient went home. She started to complain of pain yesterday when s he came to the Emergency Room. She denies any nausea or vomiting. She denies any fever or chills. Of note, the patient had been admitted to the [facility] prior to the surgery and spend at [facility] 1 week in the hospital where she has multiple tests, including ultrasound, CT scan, MRCP, HIDA scan , upper endoscopy with ultrasound. They were all conclusive that there were not any common bile duct stones for which we proceeded with surgery and her pathology of the surgery came back positive for c hronic cholecystitis and cholelithiasis. PAST MEDICAL HISTORY: She had hemorrhoidectomy and appendectomy before. PAST MEDICAL PROBLEMS: None. MEDICATIONS: At home, she was taking tramadol and Percocet for pain. She is currently afebrile, vital signs stable. LABORATORY DATA: Her white count on admission was 11.7, currently is 5.3. Rest of labs is normal. Her chemistry was elevated liver enzyme. Total bili on admission 0.7, currently is 2.7, direct bili is 2.1, AST is 1500, ALT is 1500. Alk phos is 247. The patient had a CT scan that was negative. She also had MRCP that is still pending. I believe still she will have ERCP by GI. PLAN: 1. There is no need for antibiotic. I would highly recommend discontinuing the antibiotic in this p atient. 2. Would proceed with MRCP reading to assess of the need for ERCP is needed or not. 3, We will put the patient on a clear liquid diet for now. Monica Ely MD cc:Jax Parks MD [id number] TT: 08/29/2016 12:29:14 Confirmation # [id number] Dictation # [id number] tn
--- NOTE | 2016-08-29 14:27 | MRI ---
PROCEDURE: Magnetic Resonance Cholangiopancreatography HISTORY: Recent cholecystectomy. Rule out common duct stone COMPARISON: 08/07/2016. TECHNIQUE: Multiplanar, multisequence MR images of the abdomen were obtained, including heavily T2 weighted MRCP images of the biliary system. Rotating maximum intensity projection images of the biliary system were generated. FINDINGS: MRCP: The common bile duct is of a normal caliber. No evidence of choledocholithiasis. No intrahepatic biliary ductal dilatation. LIVER: Unremarkable. GALLBLADDER: Gallbladder recently removed. There is a small fluid collection in the gallbladder fossa SPLEEN: Unremarkable. PANCREAS: Unremarkable. ADRENALS: Unremarkable. KIDNEYS: Unremarkable. AORTA: No aneurysm. ASCITES: None. OTHER FINDINGS: The report concurs with the preliminary [facility] report IMPRESSION: No evidence of common duct stone. Common duct is top-normal in size. Small fluid collection in the gallbladder fossa from recent cholecystectomy.
[2016-08-29 14:33] LABS: INR 0.95 (0.93-1.08)
[2016-08-29] MEDS: oxyCODONE 5 mg Immediate Release Tab PO PRN (14:52)
--- NOTE | 2016-08-29 15:39 | CP.PCM.PCO ---
Physician Communication Note - Physician Communication Note Physician Communication Note: meditech down, FU note in chart, poss for ercp tomorrow, npo 12 mn, labs am
[2016-08-29 16:42] LABS: ARTERIAL BLOOD GAS HCO3 23.6 mmol/L (21-28); ARTERIAL BLOOD GAS O2 CAPACITY 16.4 mL/dl (16-24); ARTERIAL BLOOD GAS O2 CONTENT 16.2 ML/dl (15-23); ARTERIAL BLOOD GAS PH 7.49 (7.35-7.45); ARTERIAL BLOOD HGB O2 SAT 96.2 % (95.0-98.0); CARBOXYHEMOGLOBIN 1.5 % (0.5-1.5); HHB 1.4 % (0-5); METHEMOGLOBIN 0.9 % (0.0-3.0)
[2016-08-29 16:46] LABS: MEAN CELL VOLUME 79.9 fL (80.0-105.0); MEAN CORPUSCULAR HEMOGLOBIN 26.6 pg (25.0-35.0); MEAN CORPUSCULAR HGB CONC 33.3 g/dl (31.0-37.0); MEAN PLATELET VOLUME 9.2 fl (7.0-11.0); RED CELL DISTRIBUTION WIDTH 14.5 % (11.5-14.5); WHITE BLOOD COUNT 6.4 10^3/ul (4.5-11.0)
--- NOTE | 2016-08-29 16:48 | CP.PCM.PN ---
Subjective - Date & Time of Evaluation Date of Evaluation: 08/29/16 Time of Evaluation: 16:46 - Subjective Subjective: CC;Rapid Response progress note 30 year old female with past medical history of cholecystectomy and appendectomy has rapid response called. Per nurse, patient walked to bathroom in her room and then she pulled the string for the nurse. The nurse found her slummed over holding on to the railing of the bathroom. When patient was examined, patient was not responding to verbal stimuli. She did respond to painful stimuli. Vital signs on examination were: 125/78, 97 MAP, 82 HR, 100% sat. Blood sugar was 107. Objective - Vital Signs/Intake and Output Vital Signs (last 24 hours): Temp Pulse Resp BP Pulse Ox 97.8 F 73 18 101/57 L 97 08/29/16 08:02 08/29/16 08:02 08/29/16 08:02 08/29/16 08:02 08/29/16 08:02 Intake and Output: 08/29/16 08/29/16 06:59 18:59 Intake Total 300 380 Balance 300 380 - Medications Medications: Current Medications Bisacodyl (Dulcolax) 10 mg RC DAILY [facility] Stop: 09/03/16 10:01 Last Admin: 08/29/16 10:39 Dose: Not Given Hydromorphone HCl (Dilaudid) 0.5 mg IVP Q4H PRN PRN Reason: Pain, severe (8-10) Dextrose/Sodium Chloride (Dextrose 5%/0.45% Ns 1000 Ml) 1,000 mls @ 80 mls/hr IV .[id number] [facility] Oxycodone HCl (Oxycodone Immediate Release Tab) 5 mg PO Q6H PRN PRN Reason: Pain, moderate (4-7) Last Admin: 08/29/16 14:52 Dose: 5 mg Pantoprazole Sodium (Protonix Inj) 40 mg IVP DAILY [facility] Last Admin: 08/29/16 10:40 Dose: 40 mg Ursodiol (Actigall) 300 mg PO BID [facility] Last Admin: 08/29/16 10:39 Dose: 300 mg - Labs Labs: 08/29/16 08:02 PT 10.3 Seconds (9.9-11.8) 08/29/16 11:36 INR 0.95 (0.93-1.08) 08/29/16 11:36 APTT 26.6 Seconds (23.7-30.8) 08/28/16 00:05 - Constitutional Appears: Non-toxic, No Acute Distress - Head Exam Head Exam: ATRAUMATIC Additional comments: no scalp lesions noted - Respiratory Exam Respiratory Exam: Clear to Ausculation Bilateral. absent: Rales, Rhonchi, Wheezes - Cardiovascular Exam Cardiovascular Exam: REGULAR RHYTHM, +S1, +S2 - GI/Abdominal Exam GI & Abdominal Exam: Soft. absent: Distended, Firm, Guarding, Tenderness - Neurological Exam Neurological Exam: Awake Additional comments: Patient does not respond to verbal stimuli. She does respond to painful stimuli. She is forcefully closing her eyes. PERRLA. - Skin Skin Exam: Dry, Intact, Normal Color, Warm Assessment and Plan - Assessment and Plan (Free Text) Assessment: 30 year old female with past medical history of appendectomy, cholecystectomy approximately 6 days ago had rapid called for AMS. Plan: 1. AMS - Will check ABG, CBC, CMP, ammonia level - Will get CT of head - Walked pt to CT with nurse Case discussed and seen with house doctor, Dr. Malina Steinberg
--- NOTE | 2016-08-29 16:50 | CP.PCM.PN ---
Subjective - Date & Time of Evaluation Date of Evaluation: 08/29/16 Time of Evaluation: 11:30 - Subjective Subjective: Patient noted to have very elevated transaminases. Patient still with some epigastric pain, no nausea, no vomiting, no fevers overnight. Objective - Vital Signs/Intake and Output Vital Signs (last 24 hours): Temp Pulse Resp BP Pulse Ox 97.8 F 73 18 101/57 L 97 08/29/16 08:02 08/29/16 08:02 08/29/16 08:02 08/29/16 08:02 08/29/16 08:02 Intake and Output: 08/29/16 08/29/16 06:59 18:59 Intake Total 300 380 Balance 300 380 - Medications Medications: Current Medications Bisacodyl (Dulcolax) 10 mg RC DAILY [facility] Stop: 09/03/16 10:01 Last Admin: 08/29/16 10:39 Dose: Not Given Hydromorphone HCl (Dilaudid) 0.5 mg IVP Q4H PRN PRN Reason: Pain, severe (8-10) Dextrose/Sodium Chloride (Dextrose 5%/0.45% Ns 1000 Ml) 1,000 mls @ 80 mls/hr IV .[id number] [facility] Oxycodone HCl (Oxycodone Immediate Release Tab) 5 mg PO Q6H PRN PRN Reason: Pain, moderate (4-7) Last Admin: 08/29/16 14:52 Dose: 5 mg Pantoprazole Sodium (Protonix Inj) 40 mg IVP DAILY [facility] Last Admin: 08/29/16 10:40 Dose: 40 mg Ursodiol (Actigall) 300 mg PO BID [facility] Last Admin: 08/29/16 10:39 Dose: 300 mg - Labs Labs: 08/29/16 08:02 PT 10.3 Seconds (9.9-11.8) 08/29/16 11:36 INR 0.95 (0.93-1.08) 08/29/16 11:36 APTT 26.6 Seconds (23.7-30.8) 08/28/16 00:05 - Constitutional Appears: Non-toxic, No Acute Distress - Head Exam Head Exam: NORMAL INSPECTION - ENT Exam ENT Exam: Mucous Membranes Moist - Neck Exam Neck Exam: absent: Lymphadenopathy, Meningismus - Respiratory Exam Respiratory Exam: Decreased Breath Sounds - Cardiovascular Exam Cardiovascular Exam: +S1, +S2 - GI/Abdominal Exam GI & Abdominal Exam: Soft, Tenderness (mild, epigastric). absent: Distended, Guarding, Rigid, Rebound Assessment and Plan - Assessment and Plan (Free Text) Plan: Assessment Pneumoperitoneum probably related to recent surgery, less likely bowel perforation Acute hepatitis etiology to be determined R/O common bile duct stone S/P acute cholecystitis S/P laparoscopic cholecystectomy history of gallstones S/P appendectomy obesity with BMI 34 Plan as discussed with Dr. Espinosa, Merrem is a rare cause of cholestatic liver disease, and in case reports, happened after 2 weeks of use and the earliest on the 5th day of use - will hold Merrem for now and trend transaminases, bilirubin will follow clinically
[2016-08-29 16:55] LABS: ALB/GLOB RATIO 1.1 (1.1-1.8); ALKALINE PHOSPHATASE 280 U/L (38-133); BILIRUBIN,TOTAL 3.6 mg/dL (0.2-1.3); BLOOD UREA NITROGEN 6 mg/dL (7-21); CALCIUM 9.8 mg/dL (8.4-10.5); CARBON DIOXIDE 27 mmol/L (21-33); CHLORIDE 101 mmol/L (98-107); GFR AFRICAN-AMERICAN > 60; GLUCOSE,RANDOM 114 mg/dL (70-110); POTASSIUM 4.1 mmol/L (3.6-5.0); SODIUM 138 mmol/L (132-148); TOTAL PROTEIN 8.2 g/dL (5.8-8.3)
--- NOTE | 2016-08-29 17:06 | CT ---
PROCEDURE: CT HEAD WITHOUT CONTRAST. HISTORY: AMS COMPARISON: None available. TECHNIQUE: Axial computed tomography images were obtained through the head/brain without intravenous contrast. Radiation dose: Total exam DLP = 725.84 mGy-cm. This CT exam was performed using one or more of the following dose reduction techniques: Automated exposure control, adjustment of the mA and/or kV according to patient size, and/or use of iterative reconstruction technique. FINDINGS: HEMORRHAGE: No intracranial hemorrhage. BRAIN: No mass effect or edema. No atrophy or chronic microvascular ischemic changes. VENTRICLES: Unremarkable. No hydrocephalus. CALVARIUM: Unremarkable. PARANASAL SINUSES: No evidence of acute pathology. . No significant inflammatory changes. MASTOID AIR CELLS: Unremarkable as visualized. No inflammatory changes. OTHER FINDINGS: None. IMPRESSION: No evidence of acute intracranial hemorrhage mass lesion mass effect or midline shift.
[2016-08-29 17:09] LABS: ALT/SGPT 1477 U/L (7-56); AST/SGOT 1216 U/L (15-39)
--- NOTE | 2016-08-29 18:16 | CARD ---
APPROVED REPORT EKG Measurement Heart [id number] <Conclusion> Normal sinus rhythm Normal ECG
[2016-08-29] MEDS ORDERED: Alum-Mag Hydrox-Simethicone Susp (30 mL) PO ONE (22:15)
[2016-08-29] MEDS: HYDROmorphone 0.5 mg/0.5 ml ISec IVP PRN (22:57)
[2016-08-29] MEDS: Dextrose 5%/0.9% NS 1,000 ML IV SCH (22:57)
--- NOTE | 2016-08-30 02:10 | PN ---
DATE: 08/28/2016 ADDDENDUM: SUBJECTIVE: This patient was seen and evaluated earlier. This is an addendum to the GI progress rep ort dictated by CHIO Walls. The patient still complaining of some discomfort in the abdomen an d the right upper quadrant. PHYSICAL EXAMINATION: VITAL SIGNS: Afebrile. Vital signs stable. ABDOMEN: Soft. There is mild tenderness present in the right upper quadrant area and the epigastric area. HEART: S1, S2 heard. LUNGS: Bilateral air entry present. EXTREMITIES: No cyanosis, no clubbing. LABORATORY DATA: WBC count 6.4, hemoglobin 13, hematocrit 39.9, platelets 313. INR 0.95. Chemistry showed significantly elevated LFTs in the morning. At the time of examination in the morning, total bilirubin was 2.7, direct bilirubin 2.1, AST 153, ALT , alkaline phosphatase 247. The transami nases elevation is significantly higher. IMPRESSION: This 30-year-old patient is status post cholecystectomy 6 days ago, admitted with abdomi nal pain, found to have elevated enzymes, but, today there is significant elevation of the transamina ses with elevation of the total bilirubin. MRCP done. Results were pending until later in view of c omputer system issues. Subsequently, the results are obtained and also reviewed. It showed common b ile duct is normal, no evidence of choledocholithiasis. The patient was feeling better. The p atient was started on meropenem. The differential diagnosis was acute elevation of the enzymes, shou ld include: 1. Drug induced. 2. CBD stone, also should be considered. The MRCP reported no stone s. RECOMMENDATIONS: Discontinued antibiotic. Will follow up the LFTs. I did discuss with ID and also with Dr. Parks. Would recommend close followup of the LFTs. If the LFT shows an upward trend, we m ay do an endoscopic ultrasound to further evaluate to proceeding with the ERCP. Continue to follow t he patient and consider further management based on the clinical course. Mariama Eid MD cc: [id number] TT: 08/30/2016 02:09:41 Confirmation # [id number] Dictation # [id number] mn
[2016-08-30] MEDS: HYDROmorphone 0.5 mg/0.5 ml ISec IVP PRN ×2 (06:10→12:16)
[2016-08-30 07:27] LABS: HEMATOCRIT 38.8 % (36.0-48.0); MEAN CELL VOLUME 80.5 fL (80.0-105.0); MEAN CORPUSCULAR HEMOGLOBIN 26.3 pg (25.0-35.0); MEAN CORPUSCULAR HGB CONC 32.7 g/dl (31.0-37.0); MEAN PLATELET VOLUME 9.5 fl (7.0-11.0); RED CELL DISTRIBUTION WIDTH 14.7 % (11.5-14.5); WHITE BLOOD COUNT 5.8 10^3/ul (4.5-11.0)
[2016-08-30 07:37] LABS: INR 0.99 (0.93-1.08); PARTIAL THROMBOPLASTIN TIME 25.8 Seconds (23.7-30.8)
[2016-08-30 07:38] LABS: ALB/GLOB RATIO 1.1 (1.1-1.8); ALKALINE PHOSPHATASE 253 U/L (38-133); BILIRUBIN,DIRECT 3.2 mg/dL (0.0-0.4); BILIRUBIN,TOTAL 3.8 mg/dL (0.2-1.3); BLOOD UREA NITROGEN 4 mg/dL (7-21); CALCIUM 9.8 mg/dL (8.4-10.5); CARBON DIOXIDE 30 mmol/L (21-33); CHLORIDE 102 mmol/L (98-107); GFR AFRICAN-AMERICAN > 60; GLUCOSE,RANDOM 120 mg/dL (70-110); MAGNESIUM 2.1 mg/dL (1.7-2.2); PHOSPHOROUS 2.6 mg/dL (2.5-4.5); POTASSIUM 3.9 mmol/L (3.6-5.0); SODIUM 140 mmol/L (132-148); TOTAL PROTEIN 8.2 g/dL (5.8-8.3)
[2016-08-30 07:46] LABS: ALT/SGPT 1374 U/L (7-56); AST/SGOT 923 U/L (15-39)
--- NOTE | 2016-08-30 07:57 | CON ---
DATE: 08/29/2016 REASON FOR CONSULTATION: Cardiac evaluation, status post rapid response. BRIEF CLINICAL HISTORY: A 30-year-old female who recently had a laparoscopic cholecystectomy at [facility] by Dr. Ely, who was admitted here with abdominal pain. This morning, patient was going to the bathroom and while going to bathroom, she slumped over and holding the railing of t he bathroom. Rapid response was called. According to the nurse, the vital signs remained stable at that time. Heart rate was 82, 100% saturation, blood pressure 125/78. The patient denies any chest pain. Blood sugar was 107, so cardiac consult was called for evaluation. The patient denies any christo st pain, shortness of breath, any palpitation. PAST MEDICAL AND SURGICAL HISTORY: Significant for status post cholecystectomy for removal of the ga llbladder. The patient had ERCP before. ALLERGIES: No known drug allergy. SOCIAL HISTORY: Denies smoking. Denies any history of alcohol abuse. FAMILY HISTORY: Noncontributory. REVIEW OF SYSTEMS: As per HPI. PHYSICAL EXAMINATION: VITAL SIGNS: Temperature afebrile, heart rate 73, blood pressure 105/57. HEENT: PERRLA. Extraocular muscles intact. NECK: Supple. No carotid bruits. No thyromegaly. CHEST: Clear to auscultation. HEART: S1, S2 regular. ABDOMEN: Soft. EXTREMITIES: Clubbing and cyanosis negative. LABORATORY DATA: Blood workup as follows: WBC 6.4, hemoglobin 13, hematocrit 39.0, platelet count 3 13. Chemistry shows sodium 130, potassium 4.1, chloride 101, carbon dioxide 24, anion gap of 14, BUN 6, creatinine 0.7, AST 1216, ALT 1477. Ammonia level 21, total protein 8.2, albumin 3.5, albumin/gl obulin ratio 1.1. Admitting WBC was elevated. EKG done this morning: Normal sinus rhythm, within n ormal limits. IMPRESSION: This episode could be secondary to vasovagal or postural hypotension, rule out postural hypotension, rule out any structural heart disease, unlikely. We will follow with you. Thank you, Dr. Parks, for providing us the opportunity in taking care of the patient. Steve Elder MD cc: [id number] TT: 08/30/2016 07:56:37 Confirmation # [id number] Dictation # [id number] tn
[2016-08-30] MEDS: Levalbuterol 1.25 MG/3 ML Inhal Soln UD IH SCH ×3 (08:02→19:44)
--- NOTE | 2016-08-30 08:06 | CON ---
DATE: 08/29/2016 REFERRING PHYSICIAN: Dr. Parks. REASON FOR CONSULT: Has a rapid response call today with diaphoresis. HISTORY OF PRESENT ILLNESS: This is a 30-year-old female with past medical history significant for g allstones, status post appendectomy, also have obesity. Last admission, she was admitted with cholec ystitis and was managed conservatively. Because of the symptoms, she underwent laparoscopy for alireza cystectomy, but, admitted yesterday with persistent epigastric pain and nausea, seen by johnny sanchez and started on antibiotics. Apparently, this morning, she got up, went to the bathroom, found slumped over the railing in the bathroom and diaphoretic and rapid response was called. Lab work was done. Presently, she is lying in the bed comfortably. Family is at bedside. Has mild abdominal pa in. Otherwise, no chest pain, no shortness of breath, no nausea, no leg pain or leg swelling. She d oes have snoring, daytime sleepy and tired. PAST MEDICAL HISTORY: Appendectomy, cholecystectomy, history of gallstone and obesity. ALLERGIES: None known. SOCIAL HISTORY: No history of smoking or alcohol use. FAMILY HISTORY: No significant cardiopulmonary disease reported. MEDICATIONS: She is on Actigall 300 mg twice a day, IV fluid D5 half normal saline 80 mL per hour, D ilaudid 0.5 mg q. 4 hours p.r.n., Dulcolax 10 mg rectally p.r.n., oxycodone immediate release 5 mg q. 6 hours p.r.n., Protonix 40 mg daily. She received meropenem 1 g IV q. 8 hours on admission. REVIEW OF SYSTEMS: Presently, there is no headache, no rhinitis, no cough, no shortness of breath. Mild abdominal pain. No dysuria. No leg pain or leg swelling. PHYSICAL EXAMINATION: GENERAL: Lying in the bed in no acute distress. VITAL SIGNS: Temp is 98, heart rate is 73, respiratory rate is 20, blood pressure 101/57, pulse ox 9 7% on room air. HEENT: Moist mucous membrane. Crowded airway. NECK: Supple. No JVD. LUNGS: Have fair airflow with rhonchi. HEART: S1, S2. ABDOMEN: Positive bowel sounds, soft, not tender. EXTREMITIES: There is no edema. NEUROLOGIC: Awake, alert, follows simple commands. LABORATORY DATA: Shows hemoglobin 13.0, hematocrit 39.0, WBC 6.4, platelet count is 313. INR 0.95. Blood gases done today show pH 7.49, pCO2 of 31, O2 97% on 2-liters. Sodium 138, potassium 4.1, chl oride 101, bicarbonate 27, BUN 6, creatinine 0.6, glucose is 114, calcium 9.8, total bilirubin 3.6, A ST 1216, ALT 1477, alkaline phosphatase is 280. Albumin is 4.3. Urine beta hCG is negative. Tyleno l is less than 10 in the blood. Microbiology: Blood culture has been negative. She had a CAT scan of the abdomen and the pelvis done 2 days ago. Showed pneumoperitoneum, indeterminate, significant p robably related to recent surgery, cholecystectomy, minimal staining within the gallbladder fossa wit hout definite collection, small bilateral pleural effusions with basilar atelectasis. Has MRCP done yesterday, which shows no evidence of common duct stone. Common duct is thought normal in size. A s mall fluid collection in the gallbladder fossa from recent cholecystectomy. Had a CAT scan of the he ad done, which shows no acute intracranial hemorrhage, mass lesion, mass effect or midline shift. IMPRESSION AND PLAN: Status post laparoscopic cholecystectomy, elevated liver enzymes, magnetic reso nance cholangiopancreatography is unremarkable. Venous Doppler has been ordered to rule out deep lazara ous thrombosis. Continue gastric prophylaxis and deep venous thrombosis prophylaxis. Once a venous Doppler result is available, we will make further recommendation. Or, if any change hemodynamically of patient's condition, we will make further recommendation. Thank you and will follow with you. Steve Coley MD cc: [id number] TT: 08/30/2016 02:58:02 Confirmation # [id number] Dictation # [id number] clementina
--- NOTE | 2016-08-30 08:41 | CP.PCM.PN ---
Subjective - Date & Time of Evaluation Date of Evaluation: 08/30/16 Time of Evaluation: 07:10 - Subjective Subjective: General Surgery Dr. Ely Pt S&E @bedside. RR called yesterday after pt found slumped over on in the bathroom. Head CT negative. Cardiology and Pulm consulted. Today, pt c/o pain at superior incision. no N/V, D/C. tolerating diet. Objective - Vital Signs/Intake and Output Vital Signs (last 24 hours): Temp Pulse Resp BP Pulse Ox 98.4 F 84 20 102/64 97 08/30/16 08:19 08/30/16 08:19 08/30/16 08:19 08/30/16 08:19 08/30/16 08:19 Intake and Output: 08/30/16 08/30/16 06:59 18:59 Intake Total 1200 Output Total 300 Balance 900 - Medications Medications: Current Medications Bisacodyl (Dulcolax) 10 mg RC DAILY [facility] Stop: 09/03/16 10:01 Last Admin: 08/29/16 10:39 Dose: Not Given Famotidine (Pepcid) 20 mg IV BID [facility] Hydromorphone HCl (Dilaudid) 0.5 mg IVP Q4H PRN PRN Reason: Pain, severe (8-10) Last Admin: 08/30/16 06:10 Dose: 0.5 mg Dextrose/Sodium Chloride (Dextrose 5%/0.9% Ns 1000 Ml) 1,000 mls @ 100 mls/hr IV .Q10H [facility] Last Admin: 08/29/16 22:57 Dose: 100 mls/hr Levalbuterol HCl (Xopenex) 1.25 mg IH TIDRESP [facility] Last Admin: 08/30/16 08:02 Dose: Not Given Meclizine HCl (Antivert) 12.5 mg PO Q8H [facility] Last Admin: 08/30/16 06:20 Dose: 12.5 mg Oxycodone HCl (Oxycodone Immediate Release Tab) 5 mg PO Q6H PRN PRN Reason: Pain, moderate (4-7) Last Admin: 08/29/16 14:52 Dose: 5 mg Pantoprazole Sodium (Protonix Inj) 40 mg IVP DAILY [facility] Last Admin: 08/29/16 10:40 Dose: 40 mg Ursodiol (Actigall) 300 mg PO BID [facility] Last Admin: 08/29/16 18:06 Dose: 300 mg - Labs Labs: 08/30/16 06:20 08/30/16 06:20 PT 10.7 Seconds (9.9-11.8) 08/30/16 06:20 INR 0.99 (0.93-1.08) 08/30/16 06:20 APTT 25.8 Seconds (23.7-30.8) 08/30/16 06:20 - Constitutional Appears: Non-toxic, No Acute Distress - Head Exam Head Exam: NORMAL INSPECTION - Eye Exam Eye Exam: Normal appearance, Scleral icterus - ENT Exam ENT Exam: Mucous Membranes Moist - Respiratory Exam Respiratory Exam: NORMAL BREATHING PATTERN. absent: Accessory Muscle Use, Respiratory Distress - Cardiovascular Exam Cardiovascular Exam: absent: Bradycardia, Tachycardia - GI/Abdominal Exam GI & Abdominal Exam: Soft, Tenderness (lyric-incisional TTP). absent: Distended , Guarding, Rigid, Rebound - Neurological Exam Neurological Exam: Alert, Awake, Oriented x3 - Psychiatric Exam Psychiatric exam: Normal Affect, Normal Mood - Skin Skin Exam: Dry, Intact, Warm. absent: Normal Color (Jaundice) Assessment and Plan - Assessment and Plan (Free Text) Assessment: 30 y/o F w/ postop pain, transaminitis, and elevated T. bili s/p lap cholecystectomy - cont pain management - f/u cards recs - ERCP scheduled for today - encourage OOB to chair/Amb Pt discussed w/ Dr. Solis Bloom DO PGY1
--- NOTE | 2016-08-30 08:59 | PN ---
DATE: 08/29/2016 The patient complained of pain. She is seen, evaluated by GI and ID consult. The patient currently she complained of pain in the epigastric area. She also complained of vertigo type dizziness that nelson ppens sometimes with movement or with standing, although her blood pressure is stable, no drop in blo od pressure. There is no nausea, no vomiting. Earlier, patient did have, she was found dizzy, kind of a few seconds of dizziness while she having a bowel movement, although she did have a good bowel m ovement with no constipation, according to her, and she came in, rapid response was called in and lukasz morris was found to be stable. Her EKG was normal sinus rhythm and hemodynamically she was stable and there was no chest pain, no short of breath at that time or any fever. PHYSICAL EXAMINATION: VITAL SIGNS: Temperature 97.8, heart rate 73, blood pressure 101/57, respirations 18, saturation 97% . HEAD AND NECK: Normal. No JVD, no thyromegaly. CHEST: There may be right-sided few basal rales, left side is clear. CARDIAC: First sound, second sound normal. ABDOMEN: Soft. There is tenderness mainly epigastric area where the also site of laparoscopic alireza cystectomy. Otherwise, the rest of the abdomen is soft. EXTREMITIES: No edema. NEUROLOGIC: Normal except dizzy with moving her head or getting up. The patient also was evaluated by orthostatic blood pressures yesterday and I did get the patient up. Her blood pressure was 122/70 standing, 112/74 lying flat. LABORATORY STUDIES: On the , her white count 5.3, hemoglobin 12.1, hematocrit 37.5, platelets is 300. Her chemistry noted for sodium 139, potassium 4.4, chloride 98, bicarb 28, BUN 12, creatinine 0.8. Liver enzymes elevated, got elevated high. Her total bili 2.7, direct bili 2.1, AST 1553, AST 1536, alkaline phos 247, total protein 7.8. IMPRESSION AND PLAN: 1. Abnormal high liver functions test, status post cholecystectomy. Probably, patient does have paulino e stone-related cholestasis. Magnetic resonance cholangiopancreatography was done, was negative for any stone or for any duct dilatations. The patient does complain of pain with associated abnormal li gisel function test with alk phos and direct bilirubin elevation that goes with more of a cholestasis a nd obstruction, although magnetic resonance cholangiopancreatography is negative. Discussed with the GI consultation. Maybe benefit from endoscopic ultrasound and repeat liver function in the morning. 2. Blood pressures runs in the 100s. She is not eating. I am going to change IV fluid to D5 normal saline. Continue IV Protonix. I am going to add Pepcid 20 b.i.d. Mainly she is tender in the epig astric area. We will see how the patient does. The patient denied any Motrin. She did not take any other medicine other than the pain medicine and was given tramadol for pain and Percocet as outpatie nt, which is not much. We will get Tylenol level, although I doubt any significant results. 3. Some rales in the right lung, probably atelectasis from the pain and not moving, taking a deep br eath. Will add the patient on Xopenex and we will continue current treatment. 4. Right upper quadrant pain. Continue Dilaudid 0.5 mg q. 4 hours p.r.n. Continue followup on that and for her dizziness, I add Antivert and see how she does. The patient is hemodynamically stable. I do not suspect any cardiac or pulmonary events, although I will get cardiology and pulmonary to ev aluate the patient. At this time, from the GI point of view, repeat liver function test in the [facility], endoscopic ultrasound. Will discuss further with the GI consult. Discussed with the patient in detail. Family member called from [place] about her conditions and patient allow, give us permiss ion to discuss with him. Jax Parks MD cc: [phone] TT: 08/30/2016 08:57:50 Confirmation # [id number] Dictation # [id number] en
[2016-08-30] MEDS: Dextrose 5%/0.9% NS 1,000 ML IV SCH (09:43)
--- NOTE | 2016-08-30 12:12 | PN ---
DATE: 08/30/2016 LOCATION: Room 362, bed 1. REASON FOR ____: Cardiac evaluation status post rapid response. HISTORY OF PRESENT ILLNESS: A 30-year-old female post laparoscopic cholecystectomy at [facility] by Dr. Ely, who was admitted here with abdominal pain this morning. Yesterday, patient was going to bathroom and patient slumped over and holding the railing in the bathroom. Rapid respo nse was called. According to nurses, her vital signs remained stable. The patient denied any chest pain, shortness of breath, or palpitation. The patient now lying flat in bed without any cardiac sym ptoms. PHYSICAL EXAMINATION: VITAL SIGNS: Blood pressure 102/64, respirations 20, pulse 84, temperature 98.4. HEAD: Normocephalic. EYES: Pupils normal. Conjunctivae are normal. NOSE AND THROAT: Normal. NECK: JVP low. Carotid equal. THORAX: AP diameter normal. LUNGS: Clear. CARDIOVASCULAR: S1, S2. ABDOMEN: Surgery as mentioned, laparoscopic cholecystectomy. PERIPHERIES: No clubbing, no cyanosis. LABORATORY DATA: WBC 5.8, hemoglobin 12.7, hematocrit 38.8, platelet 325. Sodium 140, potassium 3.9 , BUN 4, creatinine 0.6. Total bilirubin 3.8 (yesterday was 3.6), total 3.8, direct is 3.2; AST 923 (which was yesterday 1216), ALT 1374 (which was yesterday 1477), alkaline phosphatase 253. TSH 3.13. Total protein and albumin normal. DIAGNOSES: Probably vasovagal episode with pain. Clinically, cardiac status is stable. Status post laparoscopic cholecystectomy. Liver enzymes elevated. PLAN: Clinically, patient's cardiac status is stable. Continue GI workup. If patient needs any pro cedures from GI point of view or any surgery, patient from cardiac point of view can go for that. Wi ll continue to follow with you. Steve Skelton MD cc: [id number] TT: 08/30/2016 12:12:35 Confirmation # [id number] Dictation # [id number] mn
--- NOTE | 2016-08-30 12:45 | RAD ---
HISTORY: pleural effusion COMPARISON: No prior. TECHNIQUE: Chest PA and lateral FINDINGS: LUNGS: No active pulmonary disease. PLEURA: No significant pleural effusion identified. No pneumothorax apparent. CARDIOVASCULAR: Normal. OSSEOUS STRUCTURES: No significant abnormalities. VISUALIZED UPPER ABDOMEN: Normal. OTHER FINDINGS: None. IMPRESSION: No active disease.
--- NOTE | 2016-08-30 13:08 | PN ---
DATE: 08/30/2016 The patient is still complaining of epigastric pain, but less than yesterday. No other symptoms. No nausea, no vomiting, no fever, no chills. Her MRCP came back negative. PHYSICAL EXAMINATION: ABDOMEN: Soft, nontender, nondistended with good bowel sounds. The wound is clean with no erythema, no discharge. All dressing has been removed. LABORATORY DATA: Her total bili is 3.8, direct is 3.2, AST is down to 923 and ALT is down to 1374 an d alk phos is down to 253. Rest of labs are normal. PLAN: 1. Discontinue all antibiotics, which was stopped and the liver enzymes started to come down. 2. MRCP is negative. 3. is elevated to begin with with the liver despite hepatitis panel was negative. 4. Follow up with GI. 5. Follow up with the liver enzymes. Monica Ely MD cc: [id number] TT: 08/30/2016 13:07:49 Confirmation # [id number] Dictation # [id number] en
[2016-08-30] MEDS ORDERED: Midazolam 2 MG/2 ML VIAL ONE (14:56)
[2016-08-30] MEDS ORDERED: Propofol 10 mg/ml Inj (20 ML) ONE (14:56)
[2016-08-30] MEDS ORDERED: Rocuronium 10 mg/ml (5 ml) ONE (14:58)
[2016-08-30] MEDS ORDERED: Indomethacin 50 MG Suppository PR ONE ×2 (15:00→16:00)
[2016-08-30] MEDS ORDERED: Iohexol 240 (50 ml) ONE (15:01)
[2016-08-30] MEDS ORDERED: Glucagon Recombinant 1 mg Inj ONE (15:02)
[2016-08-30] MEDS ORDERED: Lactated Ringer's 1,000 ML IV SCH (15:12)
--- NOTE | 2016-08-30 16:09 | US ---
HISTORY: Leg pain and swelling. Evaluate for DVT PHYSICIAN(S): Bennett White MD. TECHNIQUE: Duplex sonography and color-flow Doppler with graded compression were used to evaluate the deep venous systems of both lower extremities. FINDINGS: The visualized deep venous systems of both lower extremities are sonographically normal and compressible. Normal wave forms and augmentation are seen. There is no sonographic evidence for deep venous thrombosis in the visualized segments of both lower extremities. IMPRESSION: No sonographic evidence for deep venous thrombosis in the visualized segments of both lower extremities.
[2016-08-30] MEDS ORDERED: Neostigmine Methylsulfate 3mg/3ml Syringe IV ONE (16:33)
[2016-08-30] MEDS ORDERED: Glycopyrrolate 0.2 mg/ml (2ml vial) ONE (16:34)
--- NOTE | 2016-08-30 16:37 | CP.PCM.PN ---
Subjective - Date & Time of Evaluation Date of Evaluation: 08/30/16 Time of Evaluation: 10:50 - Subjective Subjective: Less epigastric pain, no nausea, no fevers overnight, not in distress. For ERCP today. Objective - Vital Signs/Intake and Output Vital Signs (last 24 hours): Temp Pulse Resp BP Pulse Ox 98.4 F 80 16 122/78 97 08/30/16 14:45 08/30/16 14:45 08/30/16 14:45 08/30/16 14:45 08/30/16 14:45 Intake and Output: 08/30/16 08/30/16 06:59 18:59 Intake Total 0 Output Total 1100 Balance -1100 - Medications Medications: Current Medications Bisacodyl (Dulcolax) 10 mg RC DAILY [facility] Stop: 09/03/16 10:01 Last Admin: 08/30/16 09:49 Dose: 10 mg Famotidine (Pepcid) 20 mg IV BID [facility] Last Admin: 08/30/16 09:49 Dose: 20 mg Hydromorphone HCl (Dilaudid) 0.5 mg IVP Q4H PRN PRN Reason: Pain, severe (8-10) Last Admin: 08/30/16 12:16 Dose: 0.5 mg Dextrose/Sodium Chloride (Dextrose 5%/0.9% Ns 1000 Ml) 1,000 mls @ 100 mls/hr IV .Q10H [facility] Last Admin: 08/30/16 09:43 Dose: 100 mls/hr Lactated Ringer's (Lactated Ringer's) 1,000 mls @ 75 mls/hr IV .[id number] [facility] Stop: 08/30/16 17:13 Levalbuterol HCl (Xopenex) 1.25 mg IH TIDRESP [facility] Last Admin: 08/30/16 13:13 Dose: Not Given Meclizine HCl (Antivert) 12.5 mg PO Q8H [facility] Last Admin: 08/30/16 06:20 Dose: 12.5 mg Oxycodone HCl (Oxycodone Immediate Release Tab) 5 mg PO Q6H PRN PRN Reason: Pain, moderate (4-7) Last Admin: 08/29/16 14:52 Dose: 5 mg Pantoprazole Sodium (Protonix Inj) 40 mg IVP DAILY [facility] Last Admin: 08/30/16 09:49 Dose: 40 mg Ursodiol (Actigall) 300 mg PO BID [facility] Last Admin: 08/30/16 09:48 Dose: 300 mg - Labs Labs: PT 10.7 Seconds (9.9-11.8) 08/30/16 06:20 INR 0.99 (0.93-1.08) 08/30/16 06:20 APTT 25.8 Seconds (23.7-30.8) 08/30/16 06:20 - Constitutional Appears: Non-toxic, No Acute Distress - Head Exam Head Exam: NORMAL INSPECTION - ENT Exam ENT Exam: Mucous Membranes Moist - Neck Exam Neck Exam: absent: Lymphadenopathy, Meningismus - Respiratory Exam Respiratory Exam: Decreased Breath Sounds - Cardiovascular Exam Cardiovascular Exam: +S1, +S2 - GI/Abdominal Exam GI & Abdominal Exam: Soft. absent: Tenderness Assessment and Plan - Assessment and Plan (Free Text) Plan: Assessment Pneumoperitoneum probably related to recent surgery, less likely bowel perforation Acute hepatitis / transaminitis with cholestatic jaundice R/O CBD stone, R/O drug-induced R/O common bile duct stone S/P acute cholecystitis S/P laparoscopic cholecystectomy history of gallstones S/P appendectomy obesity with BMI 34 Plan as discussed with Dr. Espinosa, Merrem is a rare cause of cholestatic liver disease, and in case reports, happened after 2 weeks of use and the earliest on the 5th day of use, but still we need to rule it out and therefore will hold Merrem and continue to trend transaminases, bilirubin Will follow up ERCP results will follow clinically
--- NOTE | 2016-08-30 18:19 | CARD ---
APPROVED REPORT EXAM: Two-dimensional and M-mode echocardiogram with Doppler and color Doppler. INDICATION NEAR SYNCOPE/LVFX 2D DIMENSIONS Left Atrium (2D)3.5 (1.6-4.0cm)IVSd0.9 (0.7-1.1cm) LVDd4.2 (3.9-5.9cm)PWd1.0 (0.7-1.1cm) LVDs2.8 (2.5-4.0cm)FS (%) 33.1 % LVEF (%)62.1 (>50%) M-Mode DIMENSIONS Aortic Root3.00 (2.2-3.7cm)Aortic Cusp Exc.1.80 (1.5-2.0cm) Aortic Valve AoV Peak Bxdbkniu780.0cm/Juany Peak GR.6mmHg Mitral Valve MV E Zyvyauor56.5cm/sMV A Spyppldq56.7cm/sE/A ratio1.2 TDI Lateral E' Peak V10.40cm/sMedial E' Peak V5.75cm/sE/Lateral E'7.1 E/Medial E'12.8 Pulmonary Valve PV Peak Qhkzumaw89.6cm/sPV Peak Grad.2mmHg Tricuspid Valve TR Peak Igaaglec034jp/sRAP [id number] Peak Gr.16mmHg [id number] LEFT VENTRICLE The left ventricle is normal size. There is normal left ventricular wall thickness. The left ventricular function is normal.EFD-60-65% There is normal LV segmental wall motion. The left ventricular diastolic function is normal. No left ventricle thrombus noted on this study. There is no ventricular septal defect visualized. There is no left ventricular aneurysm. RIGHT VENTRICLE The right ventricle is normal size. There is normal right ventricular wall thickness. The right ventricular systolic function is normal. ATRIA The left atrium size is normal. The right atrium size is normal. The interatrial septum is intact with no evidence for an atrial septal defect. AORTIC VALVE The aortic valve is normal in structure. No aortic regurgitation is present. There is no aortic valvular stenosis. There is no aortic valvular vegetation. MITRAL VALVE The mitral valve is normal in structure. Mitral regurgitation is trace. There is no mitral valve stenosis. There is no evidence of mitral valve prolapse. TRICUSPID VALVE The tricuspid valve is normal in structure. There is trace tricuspid regurgitation. There is no tricuspid valve stenosis. There is no tricuspid valve prolapse or vegetation. PULMONIC VALVE The pulmonary valve is normal in structure. There is no pulmonic valvular regurgitation. There is no pulmonic valvular stenosis. GREAT VESSELS The aortic root is normal in size. The ascending aorta is normal in size. The pulmonary artery is normal. The IVC is normal in size and collapses >50% with inspiration. PERICARDIAL EFFUSION There is no pleural effusion. There is no pericardial effusion. <Conclusion> Normal chamber Size. Ef-60-65% Trace MR/TR. RVSP-26 mmof hg.
--- NOTE | 2016-08-30 19:43 | PN ---
DATE: 08/30/2016 REFERRING PHYSICIAN: Dr. Parks. SUBJECTIVE: She is lying in the bed, very low-pitched voice, but comfortable, in no acute distress. N.P.O. because of abdominal pain, poor appetite. Had episode of syncope type yesterday ____ no heada christo, no leg pain or leg swelling. PHYSICAL EXAMINATION: VITAL SIGNS: Temperature is 98, heart rate is 67, respiratory rate 14, blood pressure 127/77, pulse ox 98% on 3 liters nasal cannula. HEENT: Moist mucous membrane. Crowded airway. NECK: Supple. No JVD. LUNGS: Fair airflow with few rhonchi. HEART: S1 and S2. ABDOMEN: Positive bowel sounds. Mild epigastric pain. EXTREMITIES: There is no edema. NEUROLOGIC: Awake, alert, follows simple command. MEDICATIONS: She is on Actigall 300 mg twice a day, Antivert 12.5 mg q. 8 hours, IV fluid D5 normal saline 100 mL per hour, Dilaudid 0.5 mg q. 4 hours p.r.n., Dulcolax 10 mg rectally p.r.n. ____ daily , oxycodone immediate release 5 mg q. 6 hours p.r.n., Pepcid 20 mg twice a day, Protonix 20 mg daily , Xopenex inhaled q. 8 hours. LABORATORY DATA: Shows hemoglobin 12.7, hematocrit 38.8, WBC 5.8, platelet is 325. INR 0.9, PTT is 26. Sodium 140, potassium 3.9, chloride 102, bicarbonate 30, BUN 4, creatinine 0.6, glucose 120, katiuska cium is 9.8, magnesium 2.1, total bilirubin 3.8. AST 923, ALT 1374, alkaline phosphatase is 253. TS H 3.13. MICROBIOLOGY: Blood culture is negative. Stool for C. diff is unremarkable. She had MRCP done, rep ort is pending. Echocardiogram done which report is also pending. Chest x-ray shows unremarkable. IMPRESSION AND PLAN: Laparoscopic cholecystectomy, readmitted with elevated liver enzymes. Endoscop ic retrograde cholangiopancreatography reported unremarkable. Continues to have a mild epigastric di scomfort. Pulmonary point of view, she is doing well. Keep head elevated at [address] getting her out of bed to chair, start physical therapy. Fall precaution. Follow up LFTs in the morning. Thank you and will follow with you. Steve Coley MD cc: [phone] TT: 08/30/2016 19:42:23 Confirmation # [id number] Dictation # [id number] jn
--- NOTE | 2016-08-31 05:58 | PN ---
DATE: 08/30/2016 This patient was seen and evaluated earlier Risk benefits and alternatives explaineed. Informed consent obtained. She underwent initially endoscopic ultrasound evaluation which showed multiple small stones in the common bile duct at this time.She subsequently had ERCP, sphincterotomy done, balloon sweep and small stones removed. Also, in view of the significantly elevated LFTs, a decision was made to place a 10-Peruvian 7 cm biliary stent in the common bile duct. Good drainage of the bile was noticed. The patient tolerated the procedure well. Post-procedure, the patient was seen again on the floor and I discussed with the patient's family. PLAN: To keep her n.p.o. today except medication and IV hydration. Followup with the labs in a.m. Thank you very much for allowing us to participate in the care of the patient. Mariama Eid MD cc: [id number] TT: 08/31/2016 05:58:06 Confirmation # [id number] Dictation # [id number] tn MTDD
[2016-08-31] MEDS: Levalbuterol 1.25 MG/3 ML Inhal Soln UD IH SCH ×2 (07:42→20:56)
[2016-08-31 08:08] LABS: ALB/GLOB RATIO 1.1 (1.1-1.8); ALKALINE PHOSPHATASE 215 U/L (38-133); ALT/SGPT 894 U/L (7-56); BILIRUBIN,TOTAL 1.1 mg/dL (0.2-1.3); BLOOD UREA NITROGEN 7 mg/dL (7-21); CALCIUM 9.4 mg/dL (8.4-10.5); CARBON DIOXIDE 25 mmol/L (21-33); CHLORIDE 103 mmol/L (95-110); GFR AFRICAN-AMERICAN > 60; GLUCOSE,RANDOM 114 mg/dL (70-110); POTASSIUM 4.1 mmol/L (3.6-5.0); SODIUM 138 mmol/L (132-148); TOTAL PROTEIN 7.6 g/dL (5.8-8.3)
[2016-08-31 08:36] LABS: AST/SGOT 369 U/L (15-39)
[2016-08-31] MEDS: Enoxaparin 40 mg Syringe SC SCH (09:45)
--- NOTE | 2016-08-31 10:10 | PN ---
DATE: 08/30/2016 A 30-year-old female patient seen on 08/30/2016. The patient complained of pain. She is stable hemod ynamically. She has had abnormal liver function test which was followed today and she is going for f urther investigation. PHYSICAL EXAMINATION: VITAL SIGNS: Temperature 98.5, heart rate 68, blood pressure 121/76, respiration 14, saturation 98% on 3 L. HEAD AND NECK: Normal. No JVD, no thyromegaly. CHEST: Clear. Right base a few rales. CARDIAC: First sound, second sound normal. ABDOMEN: Soft. There is tenderness in the epigastrium, mildly on the right upper quadrant. EXTREMITIES: No edema. NEUROLOGIC: Normal. LABORATORY DATA: On 08/30, she has the following: White count 5.8, hemoglobin 12.7, hematocrit 38.8, platelets 325. Her chemistry noted for sodium 140, potassium 3.9, chloride 102, bicarb 30, BUN 4, c reatinine 0.6, blood sugar 120, total bilirubin 3.8, direct bilirubin 3.2, AST 923, ALT 1374, and alk a phos is 253. IMPRESSION AND PLAN: 1. Cholestasis associated with pain, probably biliary related. The patient will be going for ERCP, endoscopic ultrasound and possible treatment. At this time, discussed with Dr. Eid and lizzy corrales with Dr. Ely and discussed with Dr. Burris about the case also. We will continue current karol atment. We will follow up clinically. We will repeat the labs in the morning. 2. Dizziness, probably vertigo, unrelated to her blood pressure. Continue Antivert. At this time, we will continue IV fluid D5 normal saline. We will follow the patient clinically. Continue sequent ial compression devices for deep venous thrombosis prophylaxis and we will follow up clinically. Jax Parks MD cc: [phone] TT: 08/31/2016 10:09:45 Confirmation # [id number] Dictation # [id number] tn
[2016-08-31 11:24] LABS: HEMATOCRIT 37.9 % (36.0-48.0); MEAN CELL VOLUME 81.5 fL (80.0-105.0); MEAN CORPUSCULAR HEMOGLOBIN 26.5 pg (25.0-35.0); MEAN CORPUSCULAR HGB CONC 32.5 g/dl (31.0-37.0); MEAN PLATELET VOLUME 9.5 fl (7.0-11.0); RED CELL DISTRIBUTION WIDTH 15.2 % (11.5-14.5); WHITE BLOOD COUNT 9.6 10^3/ul (4.5-11.0)
--- NOTE | 2016-08-31 13:37 | PN ---
DATE: 08/31/2016 The patient is seen in room 363, bed 1. No fevers and no chills. No nausea. PHYSICAL EXAMINATION: VITAL SIGNS: Temperature is 98, blood pressure is 112/70, respiratory rate of 16. HEENT: Unremarkable. NECK: Supple. LUNGS: Have decreased breath sounds. HEART: Normal S1, S2. ABDOMEN: Soft. LABORATORY DATA: Reveals a white count of 9.6, hemoglobin of 12. BUN of 7, creatinine of 0.6 and LF T elevations are noted to be much improved. The blood cultures are negative. Stool cultures are neg ative. Dr. Eid's note is reviewed. He states that the patient has multiple stones in the common bile d uct. Review of the orders reveals the patient to be off of antibiotics. ASSESSMENT AND PLAN: This is a 30-year-old with pneumoperitoneum, probably related to recent surgery and less likely bowel perforation with acute hepatitis secondary to multiple stones, status post pro cedure by GI with ERCP, Dr. Eid. Case discussed with Dr. Eid and would expect durotomy and balloon extraction of the stones and insertion of a biliary straight stent. Dr. Parks's note from today is reviewed. Will follow closely with you. Saad Scruggs MD cc: 350 TT: 08/31/2016 13:36:05 Confirmation # [id number] Dictation # [id number]
--- NOTE | 2016-08-31 15:04 | PN ---
DATE: 08/31/2016 REASON FOR CONSULTATION: Cardiac evaluation, status post rapid response. BRIEF CLINICAL HISTORY: This 30-year-old female status post laparoscopic cholecystectomy at [facility] with ____admitted with abdominal pain. Yesterday, the day before, patient kavon t to the bathroom, the nurses said the patient complained, felt dizzy with the Dilaudid. Yesterday, patient underwent ERCP, status post removal of the gallstone. Denies any chest pain, shortness of br eath, any palpitation. No cardiac symptoms. The patient's echocardiogram looks essentially normal. PHYSICAL EXAMINATION: VITAL SIGNS: Temperature ____, blood pressure 113/72. HEENT: PERRLA. Extraocular muscles intact. NECK: Supple. No carotid bruits. No thyromegaly. CHEST: Clear to auscultation. HEART: S1, S2 regular. ABDOMEN: Soft. EXTREMITIES: Clubbing and cyanosis negative. LABORATORY DATA: WBC ____, hematocrit 37.9, platelet count 364. Chemistry shows sodium 130, potassi um 4.0, chloride 103, carbon dioxide 27, anion gap of 14, BUN 7, creatinine 0.6, AST decreasing 369, ALT 8/94. IMPRESSION: Syncope, possibly orthostatic vasovagal, status post cholecystectomy, status post remova l of stone in common bile duct. Continue deep venous thrombosis prophylaxis. The patient had echoca rdiography done yesterday that showed normal chamber size, ejection fraction of 60% - 65%, trace mitr al regurgitation, trace tricuspid regurgitation, right ventricular systolic pressure of 26 mmHg. RECOMMENDATION: Continue IV fluid, continue DVT prophylaxis. CV status is stable. All these sympto ms secondary to vasovagal and secondary to analgesic. We will sign off. I will be glad to follow p. r.n. Thank you, Dr. Parks, for providing the opportunity in taking care this patient. Steve Elder MD cc: [id number] TT: 08/31/2016 15:03:02 Confirmation # [id number] Dictation # [id number] colleen
--- NOTE | 2016-08-31 18:17 | PN ---
DATE: 08/31/2016 REFERRING PHYSICIAN: Dr. Parks. SUBJECTIVE: She just came back from the bathroom, had a bowel movement. Able to walk with the help of nursing. Able to tolerate a regular diet for lunch. Status post endoscopic retrograde cholangiop ancreatography with extraction of stone from gallbladder requiring a stent. Feels much better after the procedure. Presently, there is no shortness of breath, no nausea. decreased abdominal pain. No leg pain or leg swelling. OBJECTIVE: GENERAL: In no acute distress. VITAL SIGNS: Temperature is 98, heart is 82, respiratory rate is 18, blood pressure 113/72, pulse ox 95% on room air. HEENT: Moist mucous membranes. Crowded airway. NECK: Supple, no JVD. LUNGS: Has a fair airflow with rhonchi. HEART: S1, S2. ABDOMEN: Soft, nontender, nondistended. EXTREMITIES: There is no edema. NEUROLOGIC: Awake, alert, follows simple commands. MEDICATIONS: She is on Actigall 300 mg twice a day, Meclizine 12.5 mg q.8 hours, Dilaudid 0.5 mg q.4 hours p.r.n., Dulcolax 10 mg daily, Lovenox 40 mg daily, oxycodone immediate release 5 mg q.6 hours p.r.n., Pepcid 20 mg IV twice a day, Protonix 40 mg daily, Xopenex 1.25 mg 3 times a day. LABORATORY DATA: Shows hemoglobin 12.3, hematocrit 37.9, WBC 9.6, platelet is 364. Sodium 138, pota ssium 4.1, chloride 103, bicarbonate 25, BUN 7, creatinine 0.6, glucose 114, calcium is 9.4. AST is 369, ALT 894, alkaline phosphatase is 215. IMPRESSION AND PLAN: Status post laparoscopic cholecystectomy and with elevated liver enzymes. On e ndoscopic retrograde cholangiopancreatogram was found to have a common bile duct stone, which was ext racted and a stent was required. Liver enzymes are slowly improving. Had a syncopal type episode, f eels much better today. Will cut down most of the pain medication. Gastric prophylaxis. to l ower extremity. Out of bed to chair, ambulate as well. May to discharge in the morning. Thank you and will follow with you. Steve Coley MD cc: [id number] TT: 08/31/2016 18:16:51 Confirmation # [id number] Dictation # [id number] dn
[2016-08-31] MEDS: oxyCODONE 5 mg Immediate Release Tab PO PRN (20:03)
[2016-09-01 07:50] LABS: ADD MANUAL DIFF? NO
[2016-09-01] MEDS: Levalbuterol 1.25 MG/3 ML Inhal Soln UD IH SCH ×3 (07:52→13:54)
[2016-09-01 07:54] LABS: BASO # 0.04 K/mm3 (0.0-2.0); BASO % 0.4 % (0.0-3.0); EOS # 0.2 (0.0-0.7); EOS % 2.4 % (1.5-5.0); GRAN # 5.01 (1.4-6.5); GRAN % 55.5 % (50.0-68.0); HEMATOCRIT 36.1 % (36.0-48.0); LYMPH # 3.1 (1.2-3.4); LYMPH % 34.6 % (22.0-35.0); MEAN CELL VOLUME 81.1 fL (80.0-105.0); MEAN CORPUSCULAR HEMOGLOBIN 26.1 pg (25.0-35.0); MEAN CORPUSCULAR HGB CONC 32.1 g/dl (31.0-37.0); MEAN PLATELET VOLUME 9.4 fl (7.0-11.0); MONO # 0.6 (0.1-0.6); MONO % 7.1 % (1.0-6.0); PLATELET COUNT 305 10^3/uL (120.0-450.0); RED CELL DISTRIBUTION WIDTH 15.1 % (11.5-14.5)
[2016-09-01 08:18] LABS: ALB/GLOB RATIO 1.1 (1.1-1.8); ALKALINE PHOSPHATASE 174 U/L (38-133); ALT/SGPT 664 U/L (7-56); AST/SGOT 167 U/L (15-39); BILIRUBIN,TOTAL 0.7 mg/dL (0.2-1.3); BLOOD UREA NITROGEN 16 mg/dL (7-21); CALCIUM 9.4 mg/dL (8.4-10.5); CARBON DIOXIDE 27 mmol/L (21-33); CHLORIDE 104 mmol/L (98-107); GFR AFRICAN-AMERICAN > 60; GLUCOSE,RANDOM 94 mg/dL (70-110); POTASSIUM 3.8 mmol/L (3.6-5.0); SODIUM 140 mmol/L (132-148); TOTAL PROTEIN 7.2 g/dL (5.8-8.3)
--- NOTE | 2016-09-01 08:42 | PN ---
DATE: 08/31/2016 This patient was seen and evaluated earlier. Discussed with Dr. Parks and also Dr. Scruggs. Discussed with the nursing staff. The patient has been tolerating the diet. PHYSICAL EXAMINATION: VITAL SIGNS: Remains afebrile. Temperature is 98.2, blood pressure is /72 , pulse 82, respirations 18, O2 saturation is 95%. HEENT: Atraumatic, anicteric. NECK: Supple. HEART: S1, S2 heard. LUNGS: Bilateral air entry present. ABDOMEN: Soft. There is no tenderness. EXTREMITIES: No edema. No cyanosis. NEUROLOGIC: Alert, oriented, moves all the extremities. LABORATORY DATA: Hemoglobin 12.3, hematocrit 37.9, WBCs 9.6, platelets 364. Chemistries shows now significant improvement in the LFTs. Total bilirubin has normalized to 1.1. The AST has come down to 369. ALT 94, alkaline phosphatase is 215. IMPRESSION: This 30-year-old patient, status post endoscopic retrograde cholangiopancreatogram, removal of the common bile duct stone, placement of the biliary stent. LFTs has been improving. Will advance the diet to soft diet. Followup of the LFTs. The patient is in bed and the patient needs to be ambulating. Advised patient to ambulate. If the patient is tolerating the diet and ambulating well, if the LFTs continue to have a downward trend, patient may be able to be discharged tomorrow. Discussed with patient and Dr. Parks that patient needs a repeat endoscopic retrograde cholangiopancreatogram in about 3-4 weeks' time for removal of the stent. Mariama Eid MD cc: [id number] TT: 09/01/2016 08:41:55 Confirmation # [id number] Dictation # [id number] en MTDD
[2016-09-01 09:40] VITALS: BP 94/57; PULSE 68; RESP 20; TEMP 98.6; O2SAT 96
[2016-09-01] MEDS: Enoxaparin 40 mg Syringe SC SCH ×2 (10:29→11:02)
--- NOTE | 2016-09-01 10:45 | PN ---
DATE: 09/01/2016 The patient is in room 363, bed 1. No fevers and no chills. PHYSICAL EXAMINATION: VITAL SIGNS: Temperature is 98, blood pressure is 113/70, respiratory rate of 16. HEENT: Unremarkable. NECK: Supple. LUNGS: Have decreased breath sounds. HEART: Normal S1, S2. ABDOMEN: Soft. LABORATORY EXAMINATION: Reveals a white count of 9.0, hemoglobin of 11, platelets of 305. Chemistri es reveals the BUN of 16, creatinine of 0.7. LFTs were elevated, however, they are improving. Urina lysis is noted. Toxicology is noted and HIV is negative. Microbiology is negative. No growth in bl ood cultures. The stool for C. diff is negative antigen, negative toxin. Review of orders reveals the patient to be off of antibiotics. Dr. Eid's note is reviewed from today. Dr. Coley's note is reviewed. Dr. Elder's note is reviewed. Dr. Parks's note from [facility] is reviewed. ASSESSMENT AND PLAN: A 30-year-old female with pneumoperitoneum, probably related to recent surgery and less likely bowel perforation, acute hepatitis, multiple stones, status post endoscopic retrograd e cholangiopancreatogram by Dr. Eid and extraction of the stone and placement of a biliary stent . Currently off of antibiotics, afebrile. For possible discharge. Liver function tests are improvi ng. Saad Scruggs MD cc: 350 TT: 09/01/2016 10:44:41 Confirmation # [id number] Dictation # [id number] en
--- NOTE | 2016-09-01 14:26 | CP.PCM.PN ---
<AlexTyree - Last Filed: 09/01/16 14:22> Subjective - Date & Time of Evaluation Date of Evaluation: 09/01/16 Time of Evaluation: 14:22 - Subjective Subjective: GI for Dr. Eid Pt s&e w attending . MARGAXU. TOlerating PO. +amb, + void. Denies F/C?N/V/D/CP/SOB Objective - Vital Signs/Intake and Output Vital Signs (last 24 hours): Temp Pulse Resp BP Pulse Ox 98.6 F 68 20 94/57 L 96 09/01/16 06:00 09/01/16 06:00 09/01/16 06:00 09/01/16 06:00 09/01/16 06:00 Intake and Output: 09/01/16 09/01/16 06:59 18:59 Intake Total 1390 Output Total 0 Balance 1390 - Medications Medications: Current Medications Bisacodyl (Dulcolax) 10 mg RC DAILY [facility] Stop: 09/03/16 10:01 Last Admin: 09/01/16 10:55 Dose: Not Given Enoxaparin Sodium (Lovenox) 40 mg SC DAILY [facility] PRN Reason: Protocol Last Admin: 09/01/16 11:02 Dose: Not Given Famotidine (Pepcid) 20 mg IV BID [facility] Last Admin: 09/01/16 10:29 Dose: 20 mg Levalbuterol HCl (Xopenex) 1.25 mg IH TIDRESP [facility] Last Admin: 09/01/16 13:54 Dose: Not Given Oxycodone HCl (Oxycodone Immediate Release Tab) 5 mg PO Q6H PRN PRN Reason: Pain, moderate (4-7) Last Admin: 08/31/16 20:03 Dose: 5 mg Pantoprazole Sodium (Protonix Inj) 40 mg IVP DAILY [facility] Last Admin: 09/01/16 10:28 Dose: 40 mg Ursodiol (Actigall) 300 mg PO BID [facility] Last Admin: 09/01/16 10:28 Dose: 300 mg - Labs Labs: 09/01/16 07:47 09/01/16 07:47 PT 10.7 Seconds (9.9-11.8) 08/30/16 06:20 INR 0.99 (0.93-1.08) 08/30/16 06:20 APTT 25.8 Seconds (23.7-30.8) 08/30/16 06:20 - Constitutional Appears: No Acute Distress - Head Exam Head Exam: ATRAUMATIC, NORMAL INSPECTION, NORMOCEPHALIC - Eye Exam Eye Exam: EOMI, Normal appearance, PERRL Pupil Exam: NORMAL ACCOMODATION, PERRL - ENT Exam ENT Exam: Mucous Membranes Moist, Normal Exam - Neck Exam Neck Exam: Full ROM, Normal Inspection. absent: Lymphadenopathy - Respiratory Exam Respiratory Exam: Clear to Ausculation Bilateral, NORMAL BREATHING PATTERN - GI/Abdominal Exam GI & Abdominal Exam: Soft, Normal Bowel Sounds. absent: Tenderness - Rectal Exam Rectal Exam: NORMAL INSPECTION - Exam Exam: NORMAL INSPECTION - Extremities Exam Extremities Exam: Full ROM, Normal Capillary Refill, Normal Inspection. absent : Joint Swelling, Pedal Edema - Back Exam Back Exam: NORMAL INSPECTION - Neurological Exam Neurological Exam: Alert, Awake, CN II-XII Intact, Normal Gait, Oriented x3 - Psychiatric Exam Psychiatric exam: Normal Affect, Normal Mood - Skin Skin Exam: Dry, Intact, Normal Color, Warm Assessment and Plan - Assessment and Plan (Free Text) Assessment: 30 F with PMH of Cholelithiasis came with abd pain s/p lap alireza outside of hospital Elevated LFT s/p lap cholecystectomy CT : s/p cholecystectomy. No acute findings No leukocytosis s/p ERCP: found to have stones in the CBD. Sphincterotomy, gallstones removal w stent LFT trending down -OK to DC for GI standpoint -Need repeat ERCP in 4 weeks to remove the stent DW Dr. Eid <Mariama Eid V - Last Filed: 10/17/16 18:55> Objective - Vital Signs/Intake and Output Vital Signs (last 24 hours): Temp Pulse Resp BP Pulse Ox 98.6 F 68 20 94/57 L 96 09/01/16 06:00 09/01/16 06:00 09/01/16 06:00 09/01/16 06:00 09/01/16 06:00 - Labs Labs: 09/01/16 07:47 09/01/16 07:47 PT 10.7 Seconds (9.9-11.8) 08/30/16 06:20 INR 0.99 (0.93-1.08) 08/30/16 06:20 APTT 25.8 Seconds (23.7-30.8) 08/30/16 06:20 - GI/Abdominal Exam GI & Abdominal Exam: Soft, Normal Bowel Sounds (nontender) Assessment and Plan - Assessment and Plan (Free Text) Assessment: Addendum to the GI progress note of Dr. Johnson, patient was seen and examined an the chart reviewed. Agree with assessment and plan as outlined. Discuss with PCP.
--- NOTE | 2016-09-01 16:52 | RAD ---
PROCEDURE: Fluoroscopy up to 1 hr. HISTORY: ? CBD OBST COMPARISON: None TECHNIQUE: Standard FINDINGS: Submitted images from the current procedure: 4.0 IMPRESSION: Total fluoroscopic time (continuous mode) utilized during the procedure: 2 minutes 26 seconds.
--- NOTE | 2016-09-04 19:13 | DS ---
A 30-year-old female admitted with abdominal pain status post lap cholecystectomy associated with abn ormal liver function test. The patient has meropenem as IV antibiotic. At that time, her liver enzy me went up from 100 to thousands. On repeated liver enzyme, it went down. However, her alk phos was up, bilirubin was up with direct bilirubin elevated. Biliary origin of her symptoms was most likely . The patient went to EUS and ERCP with stone extractions by Dr. Eid and a stent placement. Th e patient had repeat liver enzymes next day. She feels her liver enzymes improved. The patient feel s better. She will be discharged home. PHYSICAL EXAMINATION: VITAL SIGNS: On discharge, temperature 98.6, heart rate 68, blood pressure 94/57, respirations 20, s aturation 96%. Her physical exam was stable. DISCHARGE DIAGNOSES: 1. Common bile duct stone. 2. Status post endoscopic retrograde cholangiopancreatogram stent placement. 3. Hepatitis secondary to gallstones. 4. Obesity. 5. Vertigo. 6. The patient runs low blood pressure 107/77. There were not any significant orthostatic changes o n her. PLAN: Discharge the patient home. Continue Actigall. Continue to drink a lot of fluids to increase blood pressure and also tramadol p.r.n. for pain. No Tylenol. No Motrin, Advil or nonsteroidal. T he patient advised to follow up in office within a week. Jax Parks MD cc: [phone] TT: 09/04/2016 19:12:31
== END 2016-09-01 14:26 | disposition home or self-care (01) | DRG 557 ==
LOC: ED 22:50 → ERH 08-28 04:38 → 3RNO 08-28 06:10 → OBSVTOIN 08-30 10:41 → 3RNO 08-30 13:11
PROVIDERS: ADMIT Internal Medicine; ATTEND Internal Medicine
PROC: 0FC98ZZ Extirpation of Matter from Common Bile Duct, Via Natural or Artificial Opening Endoscopic (ICD-10-PCS; principal; 2016-08-30 14:00)
PROC: 0F798DZ Dilation of Common Bile Duct with Intraluminal Device, Via Natural or Artificial Opening Endoscopic (ICD-10-PCS; 2016-08-30 14:00)
PROC: 0DJ08ZZ Inspection of Upper Intestinal Tract, Via Natural or Artificial Opening Endoscopic (ICD-10-PCS; 2016-08-30 14:00)
PROC: BF40ZZZ Ultrasonography of Bile Ducts (ICD-10-PCS; 2016-08-30 14:00)
PROC: BF47ZZZ Ultrasonography of Pancreas (ICD-10-PCS; 2016-08-30 14:00)
DX: K80.50 Calculus of bile duct without cholangitis or cholecystitis without obstruction (principal); K72.00 Acute and subacute hepatic failure without coma; I08.1 Rheumatic disorders of both mitral and tricuspid valves; J98.11 Atelectasis; K66.8 Other specified disorders of peritoneum; I95.1 Orthostatic hypotension; G89.18 Other acute postprocedural pain; E66.9 Obesity, unspecified; Z68.36 Body mass index [BMI] 36.0-36.9, adult

== ENCOUNTER 2016-10-18 13:20 | Inpatient (IN) | payer OTHER ==
[2016-10-18 13:24] VITALS: BMI 29.2
[2016-10-18] MEDS ORDERED: Sodium Chloride 0.9% 1,000 ML IV STA (13:45)
--- NOTE | 2016-10-18 13:54 | ED PDOC ---
Arrival/HPI - General Chief Complaint: Abdominal Pain Time Seen by Provider: 10/18/16 13:28 Historian: Patient - History of Present Illness Narrative History of Present Illness (Text): 10/18/16 13:40 Marielle Powell is a 31 year old female, whose past medical history includes a cholecystectomy, appendectomy, and CBD stents, who presents to the emergency department complaining of RUQ and epigastric pain for 2 days. Patient states that she experiences associated vomiting x 3, non-bilious and non-bloody, and diarrhea. Patient denies any fever or any other complaints at this time. PMD: Dr. Parks Time/Duration: < week Symptom Onset: Gradual Symptom Course: Unchanged Severity Level: Mild Activities at Onset: Light Context: Home Past Medical History - Provider Review Nursing Documentation Reviewed: Yes - Infectious Disease Hx of Infectious Diseases: None - Cardiac Hx Cardiac Disorders: No Hx Pacemaker: No - Pulmonary Hx Respiratory Disorders: No - Neurological Hx Neurological Disorder: No - HEENT Hx HEENT Disorder: No - Renal Hx Renal Disorder: No - Endocrine/Metabolic Hx Endocrine Disorders: No - Hematological/Oncological Hx Blood Disorders: No Hx Blood Transfusions: No Hx Blood Transfusion Reaction: No - Integumentary Hx Dermatological Disorder: No - Musculoskeletal/Rheumatological Hx Musculoskeletal Disorders: No - Gastrointestinal Hx Gastrointestinal Disorders: Yes Other/Comment: Gall Stones - Genitourinary/Gynecological Hx Genitourinary Disorders: No - Psychiatric Hx Psychophysiologic Disorder: No Hx Emotional Abuse: No Hx Physical Abuse: No Hx Substance Use: No - Surgical History Other/Comment: unknown abdominal surgery - Anesthesia Hx Anesthesia: Yes Hx Anesthesia Reactions: No Hx Malignant Hyperthermia: No - Suicidal Assessment Feels Threatened In Home Enviroment: No Family/Social History - Physician Review Nursing Documentation Reviewed: Yes Family/Social History: No Known Family HX Smoking Status: Never Smoked Hx Alcohol Use: No Hx Substance Use: No Allergies/Home Meds Allergies/Adverse Reactions: Allergies No Known Allergies Allergy (Verified 10/18/16 13:24) Home Medications: Home Meds Medication Instructions Recorded Confirmed No Known Home Med 10/18/16 10/18/16 Review of Systems - Physician Review All systems were reviewed & negative as marked: Yes - Review of Systems Constitutional: absent: Fevers, Night Sweats Eyes: absent: Vision Changes ENT: absent: Hearing Changes Respiratory: absent: SOB, Cough Cardiovascular: absent: Chest Pain Gastrointestinal: Abdominal Pain (epigastric and RUQ pain) Genitourinary Female: absent: Dysuria, Urine Output Changes Musculoskeletal: absent: Arthralgias Skin: absent: Rash, Pruritis Neurological: absent: Headache, Dizziness Endocrine: absent: Diaphoresis Hemo/Lymphatic: absent: Adenopathy Psychiatric: absent: Anxiety Physical Exam - Physical Exam Narrative Physical Exam (Text): Constitutional: Appears uncomfortable. Head: Normocephalic. Atraumatic. Eyes: PERRL. ENT: Moist mucous membranes. Neck: Supple. Cardiovascular: Regular rate. Chest: No tenderness. Respiratory: Clear to auscultation bilaterally. GI: RUQ and Epigastric guarding. 2 old, well-healed surgical scars. Back: No CVA tenderness. Musculoskeletal: No tenderness or swelling of extremities. Skin: No rash. Neurologic: Alert, no focal deficit. Vital Signs Reviewed: Yes Vital Signs Temp Pulse Resp BP Pulse Ox 10/18/16 16:11 69 18 117/72 100 10/18/16 13:27 98.2 F 80 18 122/85 99 Temperature: Afebrile Blood Pressure: Normal Pulse: Regular Respiratory Rate: Normal Appearance: Positive for: Non-Toxic, Uncomfortable Pain Distress: None Mental Status: Positive for: Alert and Oriented X 3 Medical Decision Making ED Course and Treatment: 10/18/16 13:40 Impression: 31 year old female complaining of RUQ and epigastric pain for 2 days with recent cholecystectomy 2 months ago followed by CBD stent for CBD stones. Differential Diagnosis included but are not limited to: Plan: -- Abdomen and Pelvis CT with IV contrast only -- Urinalysis and HCG -- Type and Screen -- Labs -- Pepcid, Zofran, and IV Fluids -- Reassess and disposition Prior Visits: Notes and results from previous visits were reviewed. Patient last seen in the ED on 08/27/16 for abdominal pain. Patient was admitted to hospitalist care for further evaluation. Progress Notes: PROCEDURE: CT Abdomen and Pelvis with contrast HISTORY: abdominal pain, vomiting COMPARISON: Comparison is made to the previous study dated 08/28/2016 TECHNIQUE: Contrast dose: 100 mL of Omnipaque 350. Axial and reformatted coronal and sagittal CT images of the abdomen and pelvis were obtained after IV contrast administration. Radiation dose: Total exam DLP = 673.28 mGy-cm. This CT exam was performed using one or more of the following dose reduction techniques: Automated exposure control, adjustment of the mA and/or kV according to patient size, and/or use of iterative reconstruction technique. FINDINGS: LOWER THORAX: Again seen are small bilateral pleural effusions slightly larger on the right. The heart is normal in size. LIVER: Mild hepatomegaly and moderate low-attenuation of the liver are again noted consistent with hepatic steatosis. Interval appearance of pneumobilia since the previous exam. GALLBLADDER AND BILE DUCTS: Post cholecystectomy changes are again seen. Interval insertion of biliary seen stent since the previous exam is seen at appropriate position no evidence of significant biliary ductal dilatation. PANCREAS: Unremarkable. No gross lesion or ductal dilatation. SPLEEN: Unremarkable. ADRENALS: Unremarkable. No mass. KIDNEYS AND URETERS: Unremarkable. No hydronephrosis. No solid mass. VASCULATURE: Unremarkable. No aortic aneurysm. BOWEL: Mildly dilated distal small bowel and terminal ileum is noted. No obstruction. No gross mural thickening. APPENDIX: The appendix is not visualized. No evidence of appendicitis. PERITONEUM: Unremarkable. No free fluid. No free air. LYMPH NODES: Unremarkable. No enlarged lymph nodes. BLADDER: Unremarkable. REPRODUCTIVE: IUD is seen in place. BONES: No acute fracture. OTHER FINDINGS: None. IMPRESSION: Status post insertion of biliary stent since the previous exam. Small amount of pneumobilia likely due to recent biliary stent insertion. Otherwise no significant interval change since the previous study. Small bilateral pleural effusions. Moderate hepatic steatosis. Patient given 2 doses of morphine IV for obvious pain. Flagyl/Zosyn administered to cover for CBD infection. Dr. Eid consult placed. Dr. Parks recommends admission to Dr. Hurtado. Dr. Hurtado accepts to her service. - Lab Interpretations Lab Results: 10/18/16 14:00 10/18/16 14:00 Lab Results 10/18/16 15:00: Blood Type Confirm O POSITIVE 10/18/16 14:00: Blood Type O POSITIVE, Antibody Screen Negative, BBK History Checked No verified bt 10/18/16 14:00: Sodium 139, Potassium 4.6, Chloride 102, Carbon Dioxide 26, Anion Gap 16, BUN 9, Creatinine 0.7, Est GFR ( Amer) > 60, Est GFR (Non- Af Amer) > 60, Random Glucose 96, Calcium 9.7, Total Bilirubin 0.4, AST 62 H, ALT 112 H, Alkaline Phosphatase 69, Total Protein 8.3, Albumin 4.7, Globulin 3.7 , Albumin/Globulin Ratio 1.3, Lipase 93 10/18/16 14:00: Urine Color Yellow, Urine Appearance Sl cloudy, Urine pH 6.0, Ur Specific [place] 1.025, Urine Protein Negative, Urine Glucose (UA) Negative, Urine Ketones Negative, Urine Blood Moderate H, Urine Nitrate Negative, Urine Bilirubin Negative, Urine Urobilinogen 0.2, Ur Leukocyte Esterase Negative, Urine RBC 5 - 10, Urine WBC 2 - 5, Ur Epithelial Cells 6 - 8, Urine Bacteria Few , Urine HCG, Qual Negative 10/18/16 14:00: PT 10.7, INR 0.99, APTT 27.0 10/18/16 14:00: WBC 10.2, RBC 5.05, Hgb 13.6, Hct 41.0, MCV 81.2, MCH 26.9, MCHC 33.2, RDW 14.0, Plt Count 322, MPV 9.6, Gran % 67.0, Lymph % (Auto) 25.5, [place] % (Auto) 6.3 H, Eos % (Auto) 0.9 L, Baso % (Auto) 0.3, Gran # 6.86 H, Lymph # 2.6, [place] # 0.6, Eos # 0.1, Baso # 0.03 - RAD Interpretation Radiology Orders: 10/18/16 13:46 ABD & PELVIS IV CONTRAST ONLY [CT] Stat - Medication Orders Current Medication Orders: Metronidazole (Flagyl) 500 mg in 100 mls @ 100 mls/hr IVPB STAT STA PRN Reason: Protocol Stop: 10/18/16 19:39 Piperacillin Sod/Tazobactam Sod (Zosyn 4.5 Gm In Ns 100ml) 4.5 gm in 100 mls @ 200 mls/hr IVPB STAT STA PRN Reason: Protocol Stop: 10/18/16 19:09 Discontinued Medications Famotidine (Pepcid) 20 mg IVP STAT STA Stop: 10/18/16 13:46 Last Admin: 10/18/16 14:30 Dose: 20 mg Sodium Chloride (Sodium Chloride 0.9%) 1,000 mls @ 999 mls/hr IV .Q1H1M STA Stop: 10/18/16 14:45 Last Admin: 10/18/16 14:30 Dose: 999 mls/hr Iohexol (Omnipaque 350 100 Ml) Confirm Administered Dose 350 mg .ROUTE .STK-MED ONE Stop: 10/18/16 14:31 Morphine Sulfate (Morphine) 4 mg IVP STAT STA Stop: 10/18/16 14:34 Last Admin: 10/18/16 14:41 Dose: 4 mg Morphine Sulfate (Morphine) 4 mg IVP STAT STA Stop: 10/18/16 16:18 Last Admin: 10/18/16 16:30 Dose: 4 mg Ondansetron HCl (Zofran Inj) 8 mg IVP STAT STA Stop: 10/18/16 13:46 Last Admin: 10/18/16 14:30 Dose: 8 mg - Scribe Statement The provider has reviewed the documentation as recorded by the Dana Yo Provider Scribe Attestation: All medical record entries made by the Zaynabibmartin were at my direction and personally dictated by me. I have reviewed the chart and agree that the record accurately reflects my personal performance of the history, physical exam, medical decision making, and the department course for this patient. I have also personally directed, reviewed, and agree with the discharge instructions and disposition. Disposition/Present on Arrival - Present on Arrival Any Indicators Present on Arrival: No History of DVT/PE: No History of Uncontrolled Diabetes: No Urinary Catheter: No History of Decub. Ulcer: No History Surgical Site Infection Following: None - Disposition Have Diagnosis and Disposition been Completed?: Yes Diagnosis: Abdominal pain, Transaminitis Disposition: HOSPITALIZED Disposition Time: 16:17 Patient Plan: Admission Condition: FAIR
[2016-10-18] MEDS ORDERED: Iohexol 350 MG/100 ML VIAL ONE (14:30)
[2016-10-18] MEDS ORDERED: Morphine 4 mg/ml ISec IVP STA ×2 (14:33→16:17)
[2016-10-18 14:35] LABS: BASO # 0.03 K/mm3 (0.0-2.0); BASO % 0.3 % (0.0-3.0); EOS # 0.1 (0.0-0.7); EOS % 0.9 % (1.5-5.0); GRAN # 6.86 (1.4-6.5); HEMOGLOBIN 13.6 gm/dL (12.0-16.0); LYMPH # 2.6 (1.2-3.4); LYMPH % 25.5 % (22.0-35.0); MEAN CELL VOLUME 81.2 fL (80.0-105.0); MEAN CORPUSCULAR HEMOGLOBIN 26.9 pg (25.0-35.0); MEAN CORPUSCULAR HGB CONC 33.2 g/dl (31.0-37.0); MEAN PLATELET VOLUME 9.6 fl (7.0-11.0); MONO # 0.6 (0.1-0.6); MONO % 6.3 % (1.0-6.0); PLATELET COUNT 322 10^3/uL (120.0-450.0); RBC 5.05 10^6/uL (3.5-6.1); WHITE BLOOD COUNT 10.2 10^3/ul (4.5-11.0)
[2016-10-18 14:38] LABS: URINE BILIRUBIN NEGATIVE (NEGATIVE); URINE BLOOD MODERATE (NEGATIVE); URINE GLUCOSE (UA) NEGATIVE (NEGATIVE); URINE LEUKOCYTE ESTERASE NEGATIVE Leu/uL (NEGATIVE); URINE NITRATE NEGATIVE (NEGATIVE); URINE PROTEIN NEGATIVE mg/dL (<30 mg/dL); URINE UROBILINOGEN 0.2 E.U./dL (<1 E.U./dL)
[2016-10-18 14:44] LABS: ALB/GLOB RATIO 1.3 (1.1-1.8); ALBUMIN 4.7 g/dL (3.0-4.8); ALT/SGPT 112 U/L (7-56); AST/SGOT 62 U/L (15-39); BLOOD UREA NITROGEN 9 mg/dL (7-21); CALCIUM 9.7 mg/dL (8.4-10.5); GFR AFRICAN-AMERICAN > 60; GFR NON-AFRICAN AMERICAN > 60; LIPASE 93 U/L (23-300); URINE APPEARANCE SL CLOUDY (CLEAR); URINE COLOR YELLOW (YELLOW)
[2016-10-18 14:48] LABS: HCG,QUALITATIVE URINE NEGATIVE (NEGATIVE); URINE BACTERIA FEW (NEG)
[2016-10-18 14:54] LABS: INR 0.99 (0.93-1.08); PROTHROMBIN TIME 10.7 Seconds (9.9-11.8)
--- NOTE | 2016-10-18 16:01 | CT ---
PROCEDURE: CT Abdomen and Pelvis with contrast HISTORY: abdominal pain, vomiting COMPARISON: Comparison is made to the previous study dated 08/28/2016 TECHNIQUE: Contrast dose: 100 mL of Omnipaque 350. Axial and reformatted coronal and sagittal CT images of the abdomen and pelvis were obtained after IV contrast administration. Radiation dose: Total exam DLP = 673.28 mGy-cm. This CT exam was performed using one or more of the following dose reduction techniques: Automated exposure control, adjustment of the mA and/or kV according to patient size, and/or use of iterative reconstruction technique. FINDINGS: LOWER THORAX: Again seen are small bilateral pleural effusions slightly larger on the right. The heart is normal in size. LIVER: Mild hepatomegaly and moderate low-attenuation of the liver are again noted consistent with hepatic steatosis. Interval appearance of pneumobilia since the previous exam. GALLBLADDER AND BILE DUCTS: Post cholecystectomy changes are again seen. Interval insertion of biliary seen stent since the previous exam is seen at appropriate position no evidence of significant biliary ductal dilatation. PANCREAS: Unremarkable. No gross lesion or ductal dilatation. SPLEEN: Unremarkable. ADRENALS: Unremarkable. No mass. KIDNEYS AND URETERS: Unremarkable. No hydronephrosis. No solid mass. VASCULATURE: Unremarkable. No aortic aneurysm. BOWEL: Mildly dilated distal small bowel and terminal ileum is noted. No obstruction. No gross mural thickening. APPENDIX: The appendix is not visualized. No evidence of appendicitis. PERITONEUM: Unremarkable. No free fluid. No free air. LYMPH NODES: Unremarkable. No enlarged lymph nodes. BLADDER: Unremarkable. REPRODUCTIVE: IUD is seen in place. BONES: No acute fracture. OTHER FINDINGS: None. IMPRESSION: Status post insertion of biliary stent since the previous exam. Small amount of pneumobilia likely due to recent biliary stent insertion. Otherwise no significant interval change since the previous study. Small bilateral pleural effusions. Moderate hepatic steatosis.
[2016-10-18] MEDS ORDERED: metroNIDAZOLE IV 500 mg/100 ml 500 MG/100 ML BAG IVPB STA (18:40)
[2016-10-18] MEDS ORDERED: Piperacill/Tazo 4.5gm in NS 4.5 GM/100 ML BAG IVPB STA (18:40)
[2016-10-18] MEDS: Dextrose 5%/0.45% NS 1,000 ML IV SCH (20:00)
[2016-10-18] MEDS: HYDROmorphone 2 mg/ml ISec IVP PRN (20:37)
[2016-10-18] MEDS: metroNIDAZOLE IV 250mg/50 ml 250 MG/50 ML BAG IV SCH (22:30)
[2016-10-19] MEDS: HYDROmorphone 2 mg/ml ISec IVP PRN ×2 (01:01→13:40)
--- NOTE | 2016-10-19 02:33 | CP.PCM.PN ---
Subjective - Date & Time of Evaluation Date of Evaluation: 10/19/16 Time of Evaluation: 02:17 - Subjective Subjective: Nurse Guillermo calls and tells that She vomited x 2 Is Diaphoretic,weak,dizziy. BP is 97/60 Received 2 mg dilaudid - one hour ago. FSBS-157 mg %. Pulse ox-100 % on 2L/min. Temp:97.8*F. HR :80/Mn. Patient was seen at bedside.Complains of nausea. Has no other complaints. Repeat BP 101/66. 31 year old woman admitted with RUQ,epigastric pain, vomiting, diarrhoea. PMH:Low blood pressure, Hepatitis, vertigo, obesity,cholelithiasis , Cholecystectomy, appendectomy,CBD cyst, S/P ERCP. Objective - Vital Signs/Intake and Output Vital Signs (last 24 hours): Temp Pulse Resp BP Pulse Ox 98.2 F 72 18 119/74 98 10/18/16 13:27 10/18/16 18:40 10/18/16 18:40 10/18/16 18:40 10/18/16 18:40 - Medications Medications: Current Medications Hydromorphone HCl (Dilaudid) 2 mg IVP Q4H PRN PRN Reason: Pain, moderate (4-7) Last Admin: 10/19/16 01:01 Dose: 2 mg Dextrose/Sodium Chloride (Dextrose 5%/0.45% Ns 1000 Ml) 1,000 mls @ 125 mls/hr IV .Q8H [facility] Last Admin: 10/18/16 20:00 Dose: 125 mls/hr Metronidazole (Flagyl) 250 mg in 50 mls @ 100 mls/hr IV Q8 [facility] PRN Reason: Protocol Stop: 10/23/16 22:01 Last Admin: 10/18/16 22:30 Dose: 100 mls/hr Ceftriaxone Sodium (Rocephin 1 Gram Ivpb) 1 gm in 100 mls @ 100 mls/hr IVPB DAILY [facility] PRN Reason: Protocol Ondansetron HCl (Zofran Inj) 4 mg IVP Q6H PRN PRN Reason: Nausea/Vomiting Pantoprazole Sodium (Protonix Inj) 40 mg IVP DAILY [facility] - Labs Labs: PT 10.7 Seconds (9.9-11.8) 10/18/16 14:00 INR 0.99 (0.93-1.08) 10/18/16 14:00 APTT 27.0 Seconds (23.7-30.8) 10/18/16 14:00 Laboratory Last Values WBC 10.2 10^3/ul (4.5-11.0) 10/18/16 14:00 RBC 5.05 10^6/uL (3.5-6.1) 10/18/16 14:00 Hgb 13.6 gm/dL (12.0-16.0) 10/18/16 14:00 Hct 41.0 % (36.0-48.0) 10/18/16 14:00 MCV 81.2 fL (80.0-105.0) 10/18/16 14:00 MCH 26.9 pg (25.0-35.0) 10/18/16 14:00 MCHC 33.2 g/dl (31.0-37.0) 10/18/16 14:00 RDW 14.0 % (11.5-14.5) 10/18/16 14:00 Plt Count 322 10^3/uL (120.0-450.0) 10/18/16 14:00 MPV 9.6 fl (7.0-11.0) 10/18/16 14:00 Gran % 67.0 % (50.0-68.0) 10/18/16 14:00 Lymph % (Auto) 25.5 % (22.0-35.0) 10/18/16 14:00 [place] % (Auto) 6.3 % (1.0-6.0) H 10/18/16 14:00 Eos % (Auto) 0.9 % (1.5-5.0) L 10/18/16 14:00 Baso % (Auto) 0.3 % (0.0-3.0) 10/18/16 14:00 Gran # 6.86 (1.4-6.5) H 10/18/16 14:00 Lymph # 2.6 (1.2-3.4) 10/18/16 14:00 [place] # 0.6 (0.1-0.6) 10/18/16 14:00 Eos # 0.1 (0.0-0.7) 10/18/16 14:00 Baso # 0.03 K/mm3 (0.0-2.0) 10/18/16 14:00 PT 10.7 Seconds (9.9-11.8) 10/18/16 14:00 INR 0.99 (0.93-1.08) 10/18/16 14:00 APTT 27.0 Seconds (23.7-30.8) 10/18/16 14:00 Sodium 139 mmol/L (132-148) 10/18/16 14:00 Potassium 4.6 mmol/L (3.6-5.0) 10/18/16 14:00 Chloride 102 mmol/L (98-107) 10/18/16 14:00 Carbon Dioxide 26 mmol/L (21-33) 10/18/16 14:00 Anion Gap 16 (10-20) 10/18/16 14:00 BUN 9 mg/dL (7-21) 10/18/16 14:00 Creatinine 0.7 mg/dL (0.5-1.4) 10/18/16 14:00 Est GFR ( Amer) > 60 10/18/16 14:00 Est GFR (Non-Af Amer) > 60 10/18/16 14:00 Random Glucose 96 mg/dL (70-110) 10/18/16 14:00 Calcium 9.7 mg/dL (8.4-10.5) 10/18/16 14:00 Total Bilirubin 0.4 mg/dL (0.2-1.3) 10/18/16 14:00 AST 62 U/L (15-39) H 10/18/16 14:00 ALT 112 U/L (7-56) H 10/18/16 14:00 Alkaline Phosphatase 69 U/L (38-133) 10/18/16 14:00 Total Protein 8.3 g/dL (5.8-8.3) 10/18/16 14:00 Albumin 4.7 g/dL (3.0-4.8) 10/18/16 14:00 Globulin 3.7 gm/dL 10/18/16 14:00 Albumin/Globulin Ratio 1.3 (1.1-1.8) 10/18/16 14:00 Lipase 93 U/L (23-300) 10/18/16 14:00 Urine Color Yellow (YELLOW) 10/18/16 14:00 Urine Appearance Sl cloudy (CLEAR) 10/18/16 14:00 Urine pH 6.0 (4.7-8.0) 10/18/16 14:00 Ur Specific [place] 1.025 (1.005-1.035) 10/18/16 14:00 Urine Protein Negative mg/dL (<30 mg/dL) 10/18/16 14:00 Urine Glucose (UA) Negative mg/dL (NEGATIVE) 10/18/16 14:00 Urine Ketones Negative mg/dL (NEGATIVE) 10/18/16 14:00 Urine Blood Moderate (NEGATIVE) H 10/18/16 14:00 Urine Nitrate Negative (NEGATIVE) 10/18/16 14:00 Urine Bilirubin Negative (NEGATIVE) 10/18/16 14:00 Urine Urobilinogen 0.2 E.U./dL (<1 E.U./dL) 10/18/16 14:00 Ur Leukocyte Esterase Negative Vamsi/uL (NEGATIVE) 10/18/16 14:00 Urine RBC 5 - 10 /hpf (0-2) 10/18/16 14:00 Urine WBC 2 - 5 /hpf (0-6) 10/18/16 14:00 Ur Epithelial Cells 6 - 8 /hpf (0-5) 10/18/16 14:00 Urine Bacteria Few (NEG) 10/18/16 14:00 Urine HCG, Qual Negative (NEGATIVE) 10/18/16 14:00 Blood Type O POSITIVE 10/18/16 14:00 Blood Type Confirm O POSITIVE 10/18/16 15:00 Antibody Screen Negative 10/18/16 14:00 BBK History Checked No verified bt 10/18/16 14:00 - Constitutional Appears: Well, No Acute Distress - Head Exam Head Exam: NORMOCEPHALIC - Eye Exam Eye Exam: Normal appearance, PERRL - ENT Exam ENT Exam: Normal External Ear Exam - Neck Exam Neck Exam: Normal Inspection - Respiratory Exam Respiratory Exam: NORMAL BREATHING PATTERN - Cardiovascular Exam Cardiovascular Exam: absent: JVD - GI/Abdominal Exam GI & Abdominal Exam: absent: Distended - Rectal Exam Rectal Exam: Deferred - Exam Additional comments: deferred. - Extremities Exam Extremities Exam: Normal Inspection - Back Exam Back Exam: NORMAL INSPECTION - Neurological Exam Neurological Exam: Alert, Oriented x3 - Psychiatric Exam Psychiatric exam: Normal Affect, Normal Mood - Skin Skin Exam: Normal Color Assessment and Plan - Assessment and Plan (Free Text) Assessment: Vomiting- received dilaudid. Hepatitis. Transaminits. S/P biliary stent. Overweight. Plan: Zofran 4 mg IV stat. Continue present management.
[2016-10-19] MEDS: metroNIDAZOLE IV 250mg/50 ml 250 MG/50 ML BAG IV SCH ×3 (06:05→22:17)
[2016-10-19 07:45] LABS: BASO # 0.02 K/mm3 (0.0-2.0); BASO % 0.2 % (0.0-3.0); EOS % 0.1 % (1.5-5.0); GRAN # 8.13 (1.4-6.5); GRAN % 79.4 % (50.0-68.0); HEMOGLOBIN 12.1 gm/dL (12.0-16.0); LYMPH # 1.6 (1.2-3.4); LYMPH % 15.2 % (22.0-35.0); MEAN CORPUSCULAR HEMOGLOBIN 26.1 pg (25.0-35.0); MEAN CORPUSCULAR HGB CONC 31.4 g/dl (31.0-37.0); MEAN PLATELET VOLUME 9.5 fl (7.0-11.0); MONO # 0.5 (0.1-0.6); MONO % 5.1 % (1.0-6.0); PLATELET COUNT 301 10^3/uL (120.0-450.0); RBC 4.64 10^6/uL (3.5-6.1); RED CELL DISTRIBUTION WIDTH 14.2 % (11.5-14.5); WHITE BLOOD COUNT 10.2 10^3/ul (4.5-11.0)
[2016-10-19 07:59] LABS: ALB/GLOB RATIO 1.3 (1.1-1.8); ALBUMIN 4.1 g/dL (3.0-4.8); ALT/SGPT 90 U/L (7-56); AST/SGOT 46 U/L (15-39); BLOOD UREA NITROGEN 6 mg/dL (7-21); CALCIUM 8.8 mg/dL (8.4-10.5); GFR AFRICAN-AMERICAN > 60; GFR NON-AFRICAN AMERICAN > 60
[2016-10-19] MEDS: cefTRIAXone 1 gm 1 GM/100 ML BAG IVPB SCH (09:36)
--- NOTE | 2016-10-19 11:34 | CP.PCM.CON ---
History of Present Illness - History of Present Illness History of Present Illness: this patient was seen and evaluated yesterday at 5:45 PM. The patient's name still did not appear in the list in the consult was initially called from ER.. This 31-year-old patient with a history of symptomatic gallstones status post a cholecystectomy, the stone status post ERCP sphincterotomy and removal of the stone and placement of stent on 08/30/2016 presented to the emergency room with the complaints of right upper quadrant and epigastric Abdominal pain episodes of vomiting. Denies any fever no hematemesis and no diarrhea The CT scan done in the ER was reviewed showed pneumobilia, patient had mildly elevated transaminases Review of Systems - Review of Systems All systems: reviewed and no additional remarkable complaints except - Constitutional Constitutional: As Per HPI. absent: Fever - EENT Eyes: absent: Blurred Vision, Pain Nose/Mouth/Throat: absent: Nasal Discharge, Dysphagia, Neck Pain - Cardiovascular Cardiovascular: absent: Chest Pain, Palpitations - Respiratory Respiratory: absent: Cough, Dyspnea, Dyspnea on Exertion - Gastrointestinal Gastrointestinal: As Per HPI - Neurological Neurological: absent: Focal Weakness, Sensory Deficit - Endocrine Endocrine: absent: Excessive Sweating, Flushing Past Patient History - Infectious Disease Hx of Infectious Diseases: None - Past Social History Smoking Status: Never Smoked - CARDIAC Hx Cardiac Disorders: No Hx Pacemaker: No - PULMONARY Hx Respiratory Disorders: No - NEUROLOGICAL Hx Neurological Disorder: No - HEENT Hx HEENT Problems: No - RENAL Hx Chronic Kidney Disease: No - ENDOCRINE/METABOLIC Hx Endocrine Disorders: No - HEMATOLOGICAL/ONCOLOGICAL Hx Blood Disorders: No Hx Blood Transfusions: No Hx Blood Transfusion Reaction: No - INTEGUMENTARY Hx Dermatological Problems: No - MUSCULOSKELETAL/RHEUMATOLOGICAL Hx Falls: No - GASTROINTESTINAL Hx Gastrointestinal Disorders: Yes Other/Comment: Gall Stones - GENITOURINARY/GYNECOLOGICAL Hx Genitourinary Disorders: No - PSYCHIATRIC Hx Psychophysiologic Disorder: No Hx Emotional Abuse: No Hx Physical Abuse: No Hx Substance Use: No - SURGICAL HISTORY Other/Comment: unknown abdominal surgery - ANESTHESIA Hx Anesthesia: Yes Hx Anesthesia Reactions: No Hx Malignant Hyperthermia: No Meds Allergies/Adverse Reactions: Allergies Allergy/AdvReac Type Severity Reaction Status Date / Time No Known Allergies Allergy Verified 10/18/16 13:24 - Medications Medications: Current Medications Hydromorphone HCl (Dilaudid) 2 mg IVP Q4H PRN PRN Reason: Pain, moderate (4-7) Last Admin: 10/19/16 01:01 Dose: 2 mg Dextrose/Sodium Chloride (Dextrose 5%/0.45% Ns 1000 Ml) 1,000 mls @ 125 mls/hr IV .Q8H [facility] Last Admin: 10/18/16 20:00 Dose: 125 mls/hr Metronidazole (Flagyl) 250 mg in 50 mls @ 100 mls/hr IV Q8 [facility] PRN Reason: Protocol Stop: 10/23/16 22:01 Last Admin: 10/19/16 06:05 Dose: 100 mls/hr Ceftriaxone Sodium (Rocephin 1 Gram Ivpb) 1 gm in 100 mls @ 100 mls/hr IVPB DAILY [facility] PRN Reason: Protocol Last Admin: 10/19/16 09:36 Dose: 100 mls/hr Ondansetron HCl (Zofran Inj) 4 mg IVP Q6H PRN PRN Reason: Nausea/Vomiting Last Admin: 10/19/16 03:08 Dose: 4 mg Pantoprazole Sodium (Protonix Inj) 40 mg IVP DAILY [facility] Last Admin: 10/19/16 09:35 Dose: 40 mg Physical Exam - Head Exam Head Exam: ATRAUMATIC, NORMOCEPHALIC - Eye Exam Eye Exam: EOMI, PERRL - ENT Exam ENT Exam: Mucous Membranes Moist, Normal Exam - Neck Exam Neck exam: Positive for: Full Rom. Negative for: Lymphadenopathy - Respiratory Exam Respiratory Exam: Clear to Auscultation Bilateral. absent: Rales, Rhonchi - Cardiovascular Exam Cardiovascular Exam: REGULAR RHYTHM, +S1, +S2. absent: JVD - GI/Abdominal Exam GI & Abdominal Exam: Normal Bowel Sounds, Soft Additional comments: mild tenderness on deep palpation in the right upper quadrant area - Rectal Exam Rectal Exam: NORMAL INSPECTION ( and patient was very wall patient cannot be on slow so the IV is C the day and the the the is in the he will way and is probably related to as he will the. Hemoglobin is is a A Will procedure slow will be made. The is a more a in the room COLY in S). absent: Deferred ( S generous [place] days and bad as theyhavehasn'twarmYIdon' tknowthecharttheselesionsnootherthanthetransverseunitfromthevisionintothebleedin gtotheendoscopyunitinahalfwaybetweentheintheinthewarIamnotverycomfortablewiththi spatientiswidelypatentpati ent's,sotheydon' triseinthepatientwasactivelybleedingwithinthenextsurgeryisanmaninonlyandguaiacpo sitiveEUmanadoanythingsometimesalogisticallylookingback ) - Neurological Exam Neurological exam: Alert, Oriented x3 Results - Vital Signs Recent Vital Signs: Last Vital Signs Temp 98 F 10/19/16 07:52 Pulse 64 10/19/16 07:52 Resp 19 10/19/16 07:52 BP 92/57 L 10/19/16 07:52 Pulse Ox 99 10/19/16 07:52 - Labs Result Diagrams: 10/19/16 07:00 10/19/16 07:00 Labs: Laboratory Results - last 24 hr 10/19/16 10/19/16 07:00 07:00 WBC 10.2 RBC 4.64 Hgb 12.1 Hct 38.5 MCV 83.0 MCH 26.1 MCHC 31.4 RDW 14.2 Plt Count 301 MPV 9.5 Gran % 79.4 H Lymph % (Auto) 15.2 L [place] % (Auto) 5.1 Eos % (Auto) 0.1 L Baso % (Auto) 0.2 Gran # 8.13 H Lymph # 1.6 [place] # 0.5 Eos # 0.0 Baso # 0.02 Sodium 139 Potassium 4.3 Chloride 101 Carbon Dioxide 28 Anion Gap 14 BUN 6 L Creatinine 0.6 Est GFR ( Amer) > 60 Est GFR (Non-Af Amer) > 60 Random Glucose 120 H Calcium 8.8 Total Bilirubin 0.4 AST 46 H ALT 90 H Alkaline Phosphatase 53 Total Protein 7.2 Albumin 4.1 Globulin 3.1 Albumin/Globulin Ratio 1.3 Assessment & Plan - Assessment and Plan (Free Text) Assessment: this 31-year-old patient is status post cholecystectomy CBD stone status post ERCP placement of stent and removal of the stone presented to the emergency room with the 2 days history of right upper quadrant and epigastric pain and vomiting CT scan showed pneumobilia. Patient has mildly elevated transaminases The differential diagnosis including gastroenteritis Less likely cholangitis also should be considered, GERD and peptic ulcer disease Plan: 1. Clear liquid diet 2. Patient is on empiric antibiotic coverage 3. Follow up cultures 4. PPI 5. Would consider ERCP on Friday for removal of the stent and balloon sweep Thank you very much for allowing us to participate in the care of the patient - Date & Time Date: 10/18/16 Time: 17:45
[2016-10-19] MEDS: Dextrose 5%/0.45% NS 1,000 ML IV SCH ×3 (15:30→22:17)
--- NOTE | 2016-10-19 18:23 | HP ---
SUBJECTIVE: The patient is 31-year-old female, patient of , not feeling well. I was told to cover him to take care of this patient. The patient states that she started to have right upper quadrant pain similar to the previous attack when she ended up having cholecystectomy, that is going on for the last two days. Complaining of having nausea. She also vomited few times. There is no hemoptysis, no hematemesis. No history of fever, no chills. PAST MEDICAL HISTORY: Significant for, 1. Cholecystectomy, and then she developed a common bile duct stone that was in August. She had ERCP done by Dr. Espinosa and stent was placed. 2. Morbid obesity. 3. Chronic vertigo. 4. History of gallstone pancreatitis and hepatitis. ALLERGY: SHE IS NOT ALLERGIC TO ANY MEDICATION. MEDICATION AT HOME: She does not take much medication at home. SOCIAL HISTORY: She is . She lives with her and children. Denies smoking, drinking, or alcohol use. REVIEW OF SYSTEMS: Significant for right upper quadrant pain and feeling nauseous. PHYSICAL EXAMINATION GENERAL: She is awake and alert. She has uncomfortable feeling in the right upper quadrant area. VITAL SIGNS: She is afebrile. Pulse 80, respirations 18, blood pressure 117/72. LUNGS: Bilateral clear air flow. No rhonchi or crackle. HEART: S1, S2 audible. ABDOMEN: Soft, obese, and nontender. No hepatosplenomegaly. NEUROLOGIC: The patient is awake and alert, and communicative. LABORATORY DATA: WBC is 10.2, hemoglobin 13.6, hematocrit 41, and platelets 322. PT 10.7, INR 0.99. Chemistry; Sodium 139, potassium 4.6, chloride 102, CO2 of 26, BUN 9, creatinine 0.7 and blood sugar of 96. AST 62, ALT 112, alkaline phosphatase is 69. Urinalysis shows moderate blood. She has CT scan of the abdomen and pelvis done that shows status post biliary stent with small amount of pneumobilia due to recent biliary stent insertion. ASSESSMENT: 1. Right upper quadrant pain, biliary colic versus cholangitis. 2. Status post cholecystectomy. 3. Abnormal liver function tests. PLAN: We will give the patient IV fluid and IV antibiotic, Protonix, and Dr. Espinosa for consult, and followup her electrolyte, CBC in a.m. Sadie Hurtado MD
[2016-10-20] MEDS: metroNIDAZOLE IV 250mg/50 ml 250 MG/50 ML BAG IV SCH ×3 (05:58→22:43)
[2016-10-20] MEDS: Dextrose 5%/0.45% NS 1,000 ML IV SCH ×3 (05:59→20:28)
[2016-10-20 07:28] VITALS: O2SAT 100
[2016-10-20 07:51] LABS: BASO # 0.03 K/mm3 (0.0-2.0); BASO % 0.4 % (0.0-3.0); EOS # 0.2 (0.0-0.7); EOS % 2.8 % (1.5-5.0); GRAN # 3.99 (1.4-6.5); GRAN % 55.6 % (50.0-68.0); HEMOGLOBIN 11.4 gm/dL (12.0-16.0); LYMPH # 2.4 (1.2-3.4); LYMPH % 33.8 % (22.0-35.0); MEAN CELL VOLUME 83.3 fL (80.0-105.0); MEAN CORPUSCULAR HEMOGLOBIN 26.1 pg (25.0-35.0); MEAN CORPUSCULAR HGB CONC 31.3 g/dl (31.0-37.0); MEAN PLATELET VOLUME 9.8 fl (7.0-11.0); MONO # 0.5 (0.1-0.6); MONO % 7.4 % (1.0-6.0); PLATELET COUNT 270 10^3/uL (120.0-450.0); RBC 4.37 10^6/uL (3.5-6.1); WHITE BLOOD COUNT 7.2 10^3/ul (4.5-11.0)
[2016-10-20 08:10] LABS: ALB/GLOB RATIO 1.1 (1.1-1.8); ALBUMIN 3.4 g/dL (3.0-4.8); ALT/SGPT 77 U/L (7-56); AST/SGOT 42 U/L (15-39); BLOOD UREA NITROGEN 6 mg/dL (7-21); CALCIUM 8.7 mg/dL (8.4-10.5); GFR AFRICAN-AMERICAN > 60; GFR NON-AFRICAN AMERICAN > 60
--- NOTE | 2016-10-20 08:58 | PN ---
DATE: 10/19/2016 SUBJECTIVE: The patient is a 31-year-old female, still complaining of some nausea and epigastric discomfort status post ERCP and sphincterotomy and stent placement in 08/2016. PHYSICAL EXAMINATION: GENERAL: She does not look in any distress. VITAL SIGNS: She is afebrile, pulse 64, respirations 19, blood pressure 92/57. CARDIOPULMONARY: S1 and S2 audible. LUNGS: Bilaterally clear air flow. No rhonchi or crackles. ABDOMEN: Soft. Slight epigastric discomfort. No rebound. No guarding. NEUROLOGIC: She is awake and alert, communicative. LABORATORY EXAMINATION: WBC is 10.2, hemoglobin 12, hematocrit 38, platelets 301. Chemistries: Sodium 139, potassium 4.3, chloride 101, CO2 of 28, BUN 6, creatinine 0.6, blood sugar of 120. AST 46 and ALT 90, that has improved as compared to yesterday. ASSESSMENT AND PLAN: Epigastric and right upper quadrant discomfort, rule out cholangitis versus common bile duct sludge. So, plan currently, empirically she is on IV antibiotics. Dr. Jenkins's input noted and appreciated. We will continue her on Flagyl and Rocephin and I will follow up her electrolytes and liver enzymes in the morning. Plan is to have ERCP done on Friday. For now, we will continue her on clear liquid and IV fluids. Sadie Hurtado MD
[2016-10-20] MEDS: cefTRIAXone 1 gm 1 GM/100 ML BAG IVPB SCH (09:40)
[2016-10-20] MEDS: HYDROmorphone 2 mg/ml ISec IVP PRN ×2 (12:31→20:27)
[2016-10-21] MEDS: metroNIDAZOLE IV 250mg/50 ml 250 MG/50 ML BAG IV SCH ×3 (05:50→21:08)
[2016-10-21] MEDS: Dextrose 5%/0.45% NS 1,000 ML IV SCH ×2 (05:50→21:10)
[2016-10-21 06:58] LABS: ALB/GLOB RATIO 1.2 (1.1-1.8); ALBUMIN 3.5 g/dL (3.0-4.8); ALT/SGPT 71 U/L (7-56); AST/SGOT 44 U/L (15-39); BLOOD UREA NITROGEN 6 mg/dL (7-21); CALCIUM 8.7 mg/dL (8.4-10.5); GFR AFRICAN-AMERICAN > 60; GFR NON-AFRICAN AMERICAN > 60
--- NOTE | 2016-10-21 08:17 | RAD ---
HISTORY: Pre-Procedure COMPARISON: 08/30/2016 FINDINGS: LUNGS: The lungs are well inflated and clear. PLEURA: No significant pleural effusion identified, no pneumothorax apparent. CARDIOVASCULAR: Normal. OSSEOUS STRUCTURES: No significant abnormalities. VISUALIZED UPPER ABDOMEN: Normal. OTHER FINDINGS: None. IMPRESSION: No active pulmonary disease.
[2016-10-21] MEDS: cefTRIAXone 1 gm 1 GM/100 ML BAG IVPB SCH (10:14)
[2016-10-21] MEDS ORDERED: Iohexol 240 (50 ml) ONE (13:18)
[2016-10-21] MEDS ORDERED: Indomethacin 50 MG Suppository PR ONE (13:20)
[2016-10-21] MEDS ORDERED: Glucagon Recombinant 1 mg Inj ONE (13:22)
[2016-10-21] MEDS: HYDROmorphone 1 mg/ml ISec IVP PRN ×2 (13:34→20:48)
[2016-10-21] MEDS ORDERED: Midazolam 2 MG/2 ML VIAL ONE (16:08)
[2016-10-21] MEDS ORDERED: Propofol 10 mg/ml Inj (20 ML) ONE ×2 (16:23→16:32)
[2016-10-21] MEDS ORDERED: Sodium Chloride 0.9% 1,000 ML IV SCH (17:00)
--- NOTE | 2016-10-21 17:53 | PN ---
DATE: 10/21/2016 SUBJECTIVE: The patient is a 31-year-old, seen and examined, lying in bed, had clear liquid breakfast, and still has some discomfort. No nausea or vomiting. No diarrhea. PHYSICAL EXAMINATION: VITAL SIGNS: She is afebrile, pulse 69, respirations 18, and blood pressure 118/77. LUNGS: Bilateral clear air flow. No rhonchi or crackles. HEART: S1 and S2 audible. ABDOMEN: Soft. Slight epigastric discomfort. NEUROLOGIC: Patient is awake and alert and able to communicate. LABORATORY DATA: CMP showed sodium 140, potassium 3.7, chloride 103, CO2 of 28, BUN 6, creatinine 0.7, blood sugar of 194, AST 44, and ALT 71. ASSESSMENT: 1. Abdominal pain. 2. Abnormal liver function tests. 3. History of cholecystectomy. 4. Status post common bile duct stent placement. PLAN: Patient is currently n.p.o. She is schedule to have ERCP done today to remove the stent and we will follow up her CBC and CMP in a.m. If she remains stable, she will be discharged home in a.m. Sadie Hurtado MD
[2016-10-21] MEDS ORDERED: DiphenhydrAMINE 50 mg/ml Inj IVP STA (21:41)
--- NOTE | 2016-10-21 23:43 | CARD ---
APPROVED REPORT EKG Measurement Heart [id number] <Conclusion> Normal sinus rhythm Nonspecific T wave abnormality Abnormal ECG
--- NOTE | 2016-10-22 04:14 | PN ---
DATE: SUBJECTIVE: The patient is an 31-year-old female, seen and examined, lying in bed, eating and tolerating, states her pain is much better, tolerating a regular diet. Discussed with Dr. Eid. She is scheduled to have stent removal tomorrow. PHYSICAL EXAMINATION VITAL SIGNS: She is afebrile. Pulse 71, respirations 19 and blood pressure 110/65. LUNGS: Bilateral fair air entry. No rhonchi or crackles. HEART: S1, S2 audible. ABDOMEN: Soft, nontender, no rebound, no guarding. NEUROLOGICAL: She is awake, alert and communicative. LABORATORY DATA: WBC is 7.2, hemoglobin 11.4, hematocrit 36.4 and platelets of 270. Chemistry: Sodium 139, potassium 3.5, chloride 104, CO2 of 26, BUN 6, and creatinine 0.6. Blood sugar of 98. ASSESSMENT: 1. Right upper quadrant pain. 2. History of ERCP with stent placement. 3. Status post cholecystectomy. 4. Abnormal liver function tests, seems to be improving. PLAN: We discussed with Dr. Eid, plan to remove the stent tomorrow. We will continue on IV fluids. She has been started empirically on Rocephin and Flagyl. We will continue that and after procedure if she remains stable, she will be discharged either tomorrow or day after. Sadie Hurtado MD
[2016-10-22] MEDS: metroNIDAZOLE IV 250mg/50 ml 250 MG/50 ML BAG IV SCH (05:06)
[2016-10-22 06:20] LABS: BASO # 0.03 K/mm3 (0.0-2.0); BASO % 0.5 % (0.0-3.0); EOS # 0.3 (0.0-0.7); EOS % 4.8 % (1.5-5.0); GRAN # 3.02 (1.4-6.5); HEMOGLOBIN 11.4 gm/dL (12.0-16.0); LYMPH # 2.5 (1.2-3.4); LYMPH % 39.5 % (22.0-35.0); MEAN CELL VOLUME 82.5 fL (80.0-105.0); MEAN CORPUSCULAR HGB CONC 31.5 g/dl (31.0-37.0); MEAN PLATELET VOLUME 9.5 fl (7.0-11.0); MONO # 0.5 (0.1-0.6); MONO % 7.2 % (1.0-6.0); PLATELET COUNT 261 10^3/uL (120.0-450.0); RBC 4.39 10^6/uL (3.5-6.1); RED CELL DISTRIBUTION WIDTH 13.7 % (11.5-14.5); WHITE BLOOD COUNT 6.3 10^3/ul (4.5-11.0)
[2016-10-22 06:43] LABS: ALB/GLOB RATIO 1.1 (1.1-1.8); ALBUMIN 3.3 g/dL (3.0-4.8); ALT/SGPT 80 U/L (7-56); AST/SGOT 48 U/L (15-39); BLOOD UREA NITROGEN 5 mg/dL (7-21); CALCIUM 8.5 mg/dL (8.4-10.5); GFR AFRICAN-AMERICAN > 60; GFR NON-AFRICAN AMERICAN > 60; LIPASE 74 U/L (23-300)
[2016-10-22 07:58] VITALS: BP 109/68; PULSE 64; RESP 19; TEMP 98.6
[2016-10-22] MEDS: cefTRIAXone 1 gm 1 GM/100 ML BAG IVPB SCH (09:42)
--- NOTE | 2016-10-22 15:01 | RAD ---
PROCEDURE: ERCP HISTORY: ? CBD OBST COMPARISON: None TECHNIQUE: An ERCP examination is performed by the referring physician fluoroscopic guidance provided to assistant plant manager physician performing the exam. FINDINGS: Multiple spot fluoroscopic images are submitted for evaluation with initial images demonstrating a biliary stent in position in the right upper quadrant within the scope least at the upper quadrant as well. Subsequent cannulation of the stem was performed with apparent removal of the stent. Cholangio RPO centrally performed and demonstrates likely multiple calculi at the distal common bile duct the common duct mildly dilated. Prior cholecystectomy changes seen from quadrant. Ability was performed through the CBD with final images demonstrate decompression of the common bile duct. Please see operative report further detail. IMPRESSION: As discussed above.
--- NOTE | 2016-10-22 18:47 | PN ---
SUBJECTIVE: Seen and examined at the bedside earlier today. She underwent an ERCP with stent removal and sweep of the biliary tree, stones were abstracted. No reports of any acute overnight events. Abdominal pain is much improved. She tolerated the breakfast. No nausea, vomiting, or complains of overt GI bleed. No fevers, chills, shortness of breath, or chest pain. PHYSICAL EXAMINATION: VITAL SIGNS: Temperature is 98.6, blood pressure is 109/68, pulse 64, respirations 19, and 100 nasal canula. HEENT: Sclerae anicteric. NECK: Supple. CARDIAC: S1 and S2. LUNGS: Sounds are clear. ABDOMEN: Bowel sounds are soft, not distended, nontender on palpation. No rebound or guarding. NEUROLOGIC: Awake, alert, and oriented. EXTREMITIES: Positive pedal pulses. No edema. LABORATORY DATA: WBC is 6.3, H and H is 36.2, platelets 261. Sodium 140, potassium 3.7, BUN 5, creatinine 0.7. Total bilirubin is 0.3, AST 48, ALT 80, alkaline phosphatase is 50, lipase is 74. ASSESSMENT: Elevated livery enzymes, history of cholecystectomy and choledocholithiasis with status post endoscopic retrograde cholangiopancreatography with common bile duct stent placement status post endoscopic retrograde cholangiopancreatography with stent replacement and biliary sweep and extraction of common bile duct stones. PLAN: Continue on soft low-fat diet. The patient can be discharge home as long as tolerating oral intake. The patient was on Flagyl and Rocephin on admission. No current need for any antibiotics upon discharge. Discuss with the patient to follow up with PCP and monitor LFTs outpatient. The patient was seen and case discussed with Dr. Eid and spoke to the nursing staff. KIERSTEN Walls
--- NOTE | 2016-10-23 08:13 | DS ---
HISTORY OF PRESENT ILLNESS: The patient is a 31-year-old, seen and examined, lying in bed, seems to be comfortable. No nausea or vomiting. No diarrhea. PHYSICAL EXAMINATION: VITAL SIGNS: She is afebrile, pulse 64, respirations 19, blood pressure 109/68. LUNGS: Bilateral fair airflow. No rhonchi or crackle. HEART: S1 and S2 audible. ABDOMEN: Soft and nontender. No rebound. No guarding. NEUROLOGIC: The patient is awake and alert, able to communicate, ambulatory. LABORATORY DATA: WBC 6.3, hemoglobin 11.4, hematocrit 36.2 and platelets 261. Chemistry; sodium 140, potassium 3.7, chloride 103, CO2 of 30, BUN 5, creatinine 0.7 and blood sugar 197. AST 48 and ALT 80. ASSESSMENT AND PLAN: Abdominal pain, secondary to common bile duct stone, status post endoscopic retrograde cholangiopancreatography. Stones were removed stent was removed and the patient tolerated procedure well, doing well today, eating and tolerating, so she is being discharged today. I will discuss with Dr. Eid that she needs antibiotic upon discharge or not. If she does, we will give a prescription of antibiotic and she will follow up with her private medical doctor. Sadie Hurtado MD cc:
== END 2016-10-22 15:18 | disposition home or self-care (01) | DRG 193 ==
LOC: ED 13:20 → ERH 16:47 → 3RNO 19:01
PROVIDERS: ADMIT Internal Medicine; ATTEND Internal Medicine
PROC: 0FC98ZZ Extirpation of Matter from Common Bile Duct, Via Natural or Artificial Opening Endoscopic (ICD-10-PCS; principal; 2016-10-22)
PROC: 0FPB8DZ Removal of Intraluminal Device from Hepatobiliary Duct, Via Natural or Artificial Opening Endoscopic (ICD-10-PCS; 2016-10-22)
PROC: BF101ZZ Fluoroscopy of Bile Ducts using Low Osmolar Contrast (ICD-10-PCS; 2016-10-22)
DX: K80.50 Calculus of bile duct without cholangitis or cholecystitis without obstruction (principal); K75.9 Inflammatory liver disease, unspecified; E66.01 Morbid (severe) obesity due to excess calories; K76.0 Fatty (change of) liver, not elsewhere classified; Z90.49 Acquired absence of other specified parts of digestive tract; R42 Dizziness and giddiness; Z68.29 Body mass index [BMI] 29.0-29.9, adult

== ENCOUNTER 2016-12-27 11:09 | Emergency (ER) | payer OTHER ==
[2016-12-27 11:20] VITALS: BMI 36.2
[2016-12-27 11:29] VITALS: O2SAT 99
[2016-12-27] MEDS ORDERED: Morphine 2 mg/ml ISec IVP STA (11:42)
[2016-12-27] MEDS ORDERED: Sodium Chloride 0.9% 1,000 ML IV STA (11:42)
--- NOTE | 2016-12-27 11:42 | ED PDOC ---
Arrival/HPI - General Chief Complaint: Abdominal Pain Time Seen by Provider: 12/27/16 11:12 Historian: Patient - History of Present Illness Narrative History of Present Illness (Text): 12/27/16 11:44 A 31 year old female whose past medical history includes cholecystectomy, appendectomy, and CBD stents, presents to the emergency department with 3-4 day duration RUQ abdominal pain. The patient states that she has had similar symptoms before. Patient denies any fever, chills, sore throat, cough, shortness of breath, chest pain, nausea, vomiting, abdominal pain, urinary/ bowel changes, neck pain, headache, dizziness, vision changes or other associated symptoms. PMD: Dr. Parks Time/Duration: Other (3-4 Days) Symptom Onset: Sudden Symptom Course: Unchanged Activities at Onset: Rest, Light Context: Home Past Medical History - Provider Review Nursing Documentation Reviewed: Yes - Infectious Disease Hx of Infectious Diseases: None - Cardiac Hx Cardiac Disorders: No Hx Pacemaker: No - Pulmonary Hx Respiratory Disorders: No - Neurological Hx Neurological Disorder: No - HEENT Hx HEENT Disorder: No - Renal Hx Renal Disorder: No - Endocrine/Metabolic Hx Endocrine Disorders: No - Hematological/Oncological Hx Blood Transfusions: No Hx Blood Transfusion Reaction: No - Integumentary Hx Dermatological Disorder: No - Musculoskeletal/Rheumatological Hx Falls: No - Gastrointestinal Hx Gastrointestinal Disorders: Yes Other/Comment: Gall Stones. patient reports elevated liver enzymes - Genitourinary/Gynecological Hx Genitourinary Disorders: No - Psychiatric Hx Psychophysiologic Disorder: No Hx Emotional Abuse: No Hx Physical Abuse: No Hx Substance Use: No - Surgical History Hx Appendectomy: Yes Hx Cholecystectomy: Yes - Anesthesia Hx Anesthesia: Yes Hx Anesthesia Reactions: No Hx Malignant Hyperthermia: No - Suicidal Assessment Feels Threatened In Home Enviroment: No Family/Social History - Physician Review Nursing Documentation Reviewed: Yes Family/Social History: No Known Family HX Smoking Status: Never Smoked Hx Alcohol Use: No Hx Substance Use: No Allergies/Home Meds Allergies/Adverse Reactions: Allergies No Known Allergies Allergy (Verified 10/18/16 13:24) Review of Systems - Physician Review All systems were reviewed & negative as marked: Yes - Review of Systems Constitutional: absent: Fevers, Night Sweats Eyes: absent: Vision Changes ENT: absent: Sore Throat Respiratory: absent: SOB, Cough Cardiovascular: absent: Chest Pain Gastrointestinal: absent: Abdominal Pain, Diarrhea, Nausea, Vomiting Genitourinary Female: absent: Dysuria, Frequency, Urine Output Changes Musculoskeletal: absent: Back Pain, Neck Pain Neurological: absent: Headache, Dizziness Physical Exam - Physical Exam Narrative Physical Exam (Text): 12/27/16 11:48 Constitutional: No acute distress. Head: Normocephalic. Atraumatic. Eyes: PERRL. No scleral icterus. ENT: Moist mucous membranes. Neck: Supple. Cardiovascular: Regular rate. Chest: No tenderness. Respiratory: Clear to auscultation bilaterally. GI: RUQ tenderness, no rebound/guarding. Soft. No RLQ tenderness. Nondistended. Laparoscopy scars on abdomen. Back: No CVA tenderness. No midline tenderness. Musculoskeletal: No tenderness or swelling of extremities. Skin: No rash. No jaundice. Neurologic: Alert, no focal deficit. Vital Signs Reviewed: Yes Vital Signs Temp Pulse Resp BP Pulse Ox 12/27/16 14:25 98.5 F 81 16 112/61 99 12/27/16 13:58 71 18 106/69 99 12/27/16 12:30 75 18 110/75 99 12/27/16 11:28 98.7 F 89 18 108/72 99 Temperature: Afebrile Blood Pressure: Normal Pulse: Regular Respiratory Rate: Normal Appearance: Positive for: Well-Appearing, Non-Toxic, Comfortable Pain Distress: None Mental Status: Positive for: Alert and Oriented X 3 Medical Decision Making ED Course and Treatment: 12/27/16 11:52 Impression: A 31 year old female with 3-4 day duration RUQ abdominal pain. Plan: -- US ABDOMEN -- Labs -- Urinalysis -- Morphine and IV Fluids -- Reassess and disposition Prior Visits: Notes and results from previous visits were reviewed. Patient was last seen in the emergency department on 10/18/16 with RUQ and epigastric pain, with associated vomiting and diarrhea. Progress Notes: US ABDOMEN Dictator : Sussy Vieyra MD Report Date : 12/27/2016 13:56:46 IMPRESSION: 1. Mild hepatomegaly and hepatic steatosis. 2. 1.8 cm round lesion in the right hepatic lobe. A dedicated CT scan/MRI of the abdomen without and with intravenous contrast with liver protocol is recommended for further characterization. Dr. Parks recommends discharge and follow up in office with him or directly with GI for further work up and requests prescription for pain, but in the abscence of fever, vomiting, leukocytosis, no indication for admission. Discussed all results and plan with patient using insight leader service. Instructed to return to ED immediately for fever, vomiting, palpitations, dyspnea, worsening pain, yellowing of skin or eyes. - Lab Interpretations Lab Results: 12/27/16 12:09 12/27/16 12:09 Lab Results 12/27/16 12:09: Urine Color Yellow, Urine Appearance Clear, Urine pH 6.0, Ur Specific [place] 1.020, Urine Protein Negative, Urine Glucose (UA) Negative, Urine Ketones Negative, Urine Blood Trace-intact H, Urine Nitrate Negative, Urine Bilirubin Negative, Urine Urobilinogen 0.2, Ur Leukocyte Esterase Trace H , Urine RBC 0 - 2, Urine WBC 1 - 3, Ur Epithelial Cells 6 - 8, Urine Bacteria Few, Urine HCG, Qual Negative 12/27/16 12:09: Sodium 143, Potassium 3.8, Chloride 101, Carbon Dioxide 27, Anion Gap 19, BUN 15, Creatinine 0.7, Est GFR ( Amer) > 60, Est GFR (Non- Af Amer) > 60, Random Glucose 110, Calcium 9.7, Total Bilirubin 0.4, AST 66 H, ALT 108 H, Alkaline Phosphatase 66, Total Protein 8.3, Albumin 4.7, Globulin 3.6 , Albumin/Globulin Ratio 1.3, Lipase 141 12/27/16 12:09: WBC 8.8 D, RBC 5.25, Hgb 14.0, Hct 42.6, MCV 81.1, MCH 26.7, MCHC 32.9, RDW 14.0, Plt Count 300, MPV 9.6, Gran % 60.4, Lymph % (Auto) 31.9, [place] % (Auto) 5.7, Eos % (Auto) 1.8, Baso % (Auto) 0.2, Gran # 5.33, Lymph # 2.8 , [place] # 0.5, Eos # 0.2, Baso # 0.02 I have reviewed the lab results: Yes - RAD Interpretation Radiology Orders: 12/27/16 12:31 ABDOMEN COMPLETE [US] Stat - Medication Orders Current Medication Orders: Discontinued Medications Sodium Chloride (Sodium Chloride 0.9%) 1,000 mls @ 999 mls/hr IV .Q1H1M STA Stop: 12/27/16 12:42 Last Admin: 12/27/16 12:04 Dose: 999 mls/hr eMAR Start Stop Document 12/27/16 12:04 IT (Rec: 12/27/16 12:05 IT [id number]) Intravenous Solution Start Date 12/27/16 Start Time 12:04 End Date 12/27/16 End time 13:04 Total Infusion Time 60 Morphine Sulfate (Morphine) 2 mg IVP STAT STA Stop: 12/27/16 11:43 Last Admin: 12/27/16 12:05 Dose: 2 mg MAR Pain Assessment Document 12/27/16 12:05 IT (Rec: 12/27/16 12:05 IT [id number]) Pain Reassessment Is this a pain reassessment? No Sleep Is patient sleeping during reassessment? No Presence of Pain Presence of Pain Yes Pain Scale Used Pain Scale Used Numeric Location Left, Right or Bilateral Right Pain Location Body Site Abdomen Description Description Sharp Intensity of Pain at present 7 IVP Administration Document 12/27/16 12:05 IT (Rec: 12/27/16 12:05 IT [id number]) Charges for Administration # of IVP Administrations 1 - Scribe Statement Louann Whitney Provider Scribe Attestation: All medical record entries made by the Scribe were at my direction and personally dictated by me. I have reviewed the chart and agree that the record accurately reflects my personal performance of the history, physical exam, medical decision making, and the department course for this patient. I have also personally directed, reviewed, and agree with the discharge instructions and disposition. Disposition/Present on Arrival - Present on Arrival Any Indicators Present on Arrival: No History of DVT/PE: No History of Uncontrolled Diabetes: No Urinary Catheter: No History of Decub. Ulcer: No History Surgical Site Infection Following: None - Disposition Have Diagnosis and Disposition been Completed?: Yes Diagnosis: Abdominal pain Disposition: HOME/ ROUTINE Disposition Time: 14:13 Patient Plan: Discharge Condition: STABLE Discharge Instructions (ExitCare): Abdominal Pain (ED) Prescriptions: oxyCODONE/Acetaminophen [Percocet 5/325 mg Tab] 1 tab PO Q6 #10 tab Referrals: Jax Parks MD [Primary Care Provider] - Follow up with primary Mariama Eid MD [Medical Doctor] - Follow up with primary Forms: [employer] ([place])
[2016-12-27 12:14] LABS: BASO # 0.02 K/mm3 (0.0-2.0); BASO % 0.2 % (0.0-3.0); EOS # 0.2 (0.0-0.7); EOS % 1.8 % (1.5-5.0); GRAN # 5.33 (1.4-6.5); GRAN % 60.4 % (50.0-68.0); HEMATOCRIT 42.6 % (36.0-48.0); LYMPH # 2.8 (1.2-3.4); LYMPH % 31.9 % (22.0-35.0); MEAN CELL VOLUME 81.1 fl (80.0-105.0); MEAN CORPUSCULAR HEMOGLOBIN 26.7 pg (25.0-35.0); MEAN CORPUSCULAR HGB CONC 32.9 g/dl (31.0-37.0); MEAN PLATELET VOLUME 9.6 fl (7.0-11.0); MONO # 0.5 (0.1-0.6); MONO % 5.7 % (1.0-6.0); URINE APPEARANCE CLEAR (CLEAR); URINE BILIRUBIN NEGATIVE (NEGATIVE); URINE BLOOD TRACE-INTACT (NEGATIVE); URINE COLOR YELLOW (YELLOW); URINE GLUCOSE (UA) NEGATIVE (NEGATIVE); URINE KETONE NEGATIVE (NEGATIVE); URINE LEUKOCYTE ESTERASE TRACE Leu/uL (NEGATIVE); URINE PROTEIN NEGATIVE mg/dL (<30 mg/dL); URINE UROBILINOGEN 0.2 E.U./dL (<1 E.U./dL); WHITE BLOOD COUNT 8.8 10^3/ul (4.5-11.0)
[2016-12-27 12:22] LABS: URINE BACTERIA FEW (NEG); URINE RBC 0 - 2 /hpf (0-2)
[2016-12-27 12:23] LABS: ALB/GLOB RATIO 1.3 (1.1-1.8); ALKALINE PHOSPHATASE 66 U/L (38-126); ALT/SGPT 108 U/L (7-56); AST/SGOT 66 U/L (14-36); BILIRUBIN,TOTAL 0.4 mg/dL (0.2-1.3); BLOOD UREA NITROGEN 15 mg/dL (7-21); CALCIUM 9.7 mg/dL (8.4-10.5); CARBON DIOXIDE 27 mmol/L (21-33); CHLORIDE 101 mmol/L (98-107); GFR AFRICAN-AMERICAN > 60; GLUCOSE,RANDOM 110 mg/dL (70-110); LIPASE 141 U/L (23-300); POTASSIUM 3.8 mmol/L (3.6-5.0); SODIUM 143 mmol/L (132-148); TOTAL PROTEIN 8.3 g/dL (5.8-8.3)
--- NOTE | 2016-12-27 13:58 | US ---
HISTORY: RUQ pain, h/o cholecystectomy, mult CBD stents COMPARISON: CT abdomen and pelvis from 10/18/2016 TECHNIQUE: Grayscale imaging was performed. FINDINGS: LIVER: Measures 18.2 cm. There is diffuse increased echogenicity of the liver parenchyma. There is a 1.8 x 1.3 x 1.6 cm well-circumscribed round hypodense lesion in the right hepatic lobe. No intrahepatic bile duct dilatation. GALLBLADDER: Surgically absent. COMMON BILE DUCT: Measures 7.1 mm. Mild diffuse dilatation. No choledocholithiasis. PANCREAS: Unremarkable as visualized. No mass. No ductal dilatation. RIGHT KIDNEY: Measures 12.3cm. Normal echogenicity. No calculus, mass, or hydronephrosis. LEFT KIDNEY: Measures 11.6cm. Normal echogenicity. No calculus, mass, or hydronephrosis. SPLEEN: Normal in size and contour. No mass. AORTA: No aneurysmal dilatation. IVC: Unremarkable. OTHER FINDINGS: None. IMPRESSION: 1. Mild hepatomegaly and hepatic steatosis. 2. 1.8 cm round lesion in the right hepatic lobe. A dedicated CT scan/MRI of the abdomen without and with intravenous contrast with liver protocol is recommended for further characterization.
[2016-12-27 14:26] VITALS: BP 112/61; PULSE 81; RESP 16; TEMP 98.5
== END 2016-12-27 14:46 | disposition home or self-care (01) ==
LOC: ED 11:09
DX: R10.9 Unspecified abdominal pain (principal); Z90.49 Acquired absence of other specified parts of digestive tract
CPT/HCPCS: 76700; 80053; 81001; 83690; 84703; 85025; 87086; 96361; 96374; 99284; J2270; J7040

== ENCOUNTER 2017-01-06 09:53 | Inpatient (IN) | payer OTHER ==
[2017-01-06 09:57] VITALS: BMI 33.8
[2017-01-06] MEDS ORDERED: Lidocaine 2% Inj (20ml) ONE (10:18)
[2017-01-06] MEDS ORDERED: Iodixanol 320 MG/ML 200 ML BOTTLE IV ONE (10:19)
[2017-01-06] MEDS ORDERED: Iohexol 350mgl/ml 50 ML ONE (10:19)
[2017-01-06] MEDS ORDERED: Midazolam 2 MG/2 ML VIAL ONE (10:19)
--- NOTE | 2017-01-06 10:32 | ED PDOC ---
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 Pt saw PMD 4 days prior to evaluation with instructions to present to ED today for evaluation. Pain is 5/10, radiates to RUQ. Is currently on pain medications as per PMD. Denies N/V/F/C, SOB, CP, diarrhea, other complaints. PMH: denies PSH: cholecystectomy with subsequent stent placement/removal due to choledocholithiasias with Dr. Eid, appendectomy All: Denies SH: Denies PMD: Charly 01/06/17 10:38 (Gracie Nicholas) Past Medical History - Provider Review Nursing Documentation Reviewed: Yes - Infectious Disease Hx of Infectious Diseases: None - Cardiac Hx Cardiac Disorders: No Hx Pacemaker: No - Pulmonary Hx Respiratory Disorders: No - Neurological Hx Neurological Disorder: No - HEENT Hx HEENT Disorder: No - Renal Hx Renal Disorder: No - Endocrine/Metabolic Hx Endocrine Disorders: No - Hematological/Oncological Hx Blood Transfusions: No Hx Blood Transfusion Reaction: No - Integumentary Hx Dermatological Disorder: No - Musculoskeletal/Rheumatological Hx Falls: No - Gastrointestinal Hx Gastrointestinal Disorders: Yes Other/Comment: Gall Stones. patient reports elevated liver enzymes - Genitourinary/Gynecological Hx Genitourinary Disorders: No - Psychiatric Hx Psychophysiologic Disorder: No Hx Emotional Abuse: No Hx Physical Abuse: No Hx Substance Use: No - Surgical History Hx Appendectomy: Yes Hx Cholecystectomy: Yes Other/Comment: 2 additional surgeries due to complications - Anesthesia Hx Anesthesia: Yes Hx Anesthesia Reactions: No Hx Malignant Hyperthermia: No - Suicidal Assessment Feels Threatened In Home Enviroment: No Family/Social History - Physician Review Nursing Documentation Reviewed: Yes Family/Social History: No Known Family HX Smoking Status: Never Smoked Hx Alcohol Use: No Hx Substance Use: No Allergies/Home Meds Allergies/Adverse Reactions: Allergies No Known Allergies Allergy (Verified 01/06/17 12:59) Home Medications: Home Meds Medication Instructions Recorded Confirmed No Known Home Med 01/06/17 01/06/17 Review of Systems - Physician Review All systems were reviewed & negative as marked: Yes - Review of Systems Constitutional: Normal Respiratory: Normal Cardiovascular: Normal Gastrointestinal: absent: Diarrhea, Nausea, Vomiting, Hematemesis Genitourinary Female: absent: Dysuria, Hematuria Musculoskeletal: Back Pain Physical Exam Vital Signs Reviewed: Yes Temperature: Afebrile Blood Pressure: Normal Pulse: Regular Respiratory Rate: Normal Appearance: Positive for: Non-Toxic, Comfortable Pain Distress: None Mental Status: Positive for: Alert and Oriented X 3 - Systems Exam Head: Present: Atraumatic, Normocephalic Extroacular Muscles: Present: EOMI Mouth: Present: Moist Mucous Membranes Nose (External): Present: Atraumatic Neck: Present: Normal Range of Motion Respiratory/Chest: Present: Clear to Auscultation, Good Air Exchange. No: Respiratory Distress, Accessory Muscle Use Cardiovascular: Present: Regular Rate and Rhythm, Normal S1, S2. No: Murmurs Abdomen: Present: Normal Bowel Sounds, Scars (well healed). No: Tenderness, Distention, Peritoneal Signs, Rebound, Guarding Back: No: CVA Tenderness Upper Extremity: Present: Normal Inspection. No: Cyanosis, Edema Lower Extremity: Present: Normal Inspection. No: Edema Neurological: Present: GCS=15, CN II-XII Intact, Speech Normal Skin: Present: Warm, Dry, Normal Color. No: Rashes Psychiatric: Present: Alert, Oriented x 3, Normal Insight, Normal Concentration Vital Signs Temp Pulse Resp BP Pulse Ox 01/06/17 12:05 72 18 110/66 100 01/06/17 10:04 98.1 F 83 18 119/79 100 01/06/17 10:00 86 18 118/79 100 Medical Decision Making ED Course and Treatment: Patient Seen With Resident: In agreement with resident note which contains more details about the patient. Patient was seen and evaluated with resident. Came up with plan and treatment together. (Alex Babb) 01/06/17 10:35 Pt currently comfortable, hemodynamically stable, will order labs and speak with PMD regarding desires for pt work up. 01/06/17 12:09 Resident spoke with PMD, Dr. Parks. Dr. Parks requesting pt to be admitted to hospitalist service with GI consult to Dr. Langley for possible ERCP- PMD suspects abdominal pain due to retained stone in CBD. 01/06/17 12:45 Spoke to hospitalist team who agree to take patient onto their service. Will admit. 01/06/17 13:40 Pt seen/evaluated by internal medicine team. Diet order placed. Will be taken to med-surg. (Gracie Nicholas) - Lab Interpretations Lab Results: 01/06/17 11:02 01/06/17 11:02 Lab Results 01/06/17 11:02: Sodium 140, Potassium 4.4, Chloride 101, Carbon Dioxide 27, Anion Gap 16, BUN 14, Creatinine 0.6, Est GFR ( Amer) > 60, Est GFR (Non- Af Amer) > 60, Random Glucose 99, Calcium 9.4, Total Bilirubin 0.4, AST 57 H, ALT 98 H, Alkaline Phosphatase 57, Total Protein 7.7, Albumin 4.4, Globulin 3.3 , Albumin/Globulin Ratio 1.3, Lipase 103 01/06/17 11:02: WBC 8.1, RBC 5.17, Hgb 13.6, Hct 41.8, MCV 80.9, MCH 26.3, MCHC 32.5, RDW 14.0, Plt Count 297, MPV 9.5, Gran % 60.2, Lymph % (Auto) 32.0, [place] % (Auto) 5.8, Eos % (Auto) 1.8, Baso % (Auto) 0.2, Gran # 4.88, Lymph # 2.6, B[place] # 0.5, Eos # 0.2, Baso # 0.02 - RAD Interpretation Radiology Orders: 01/06/17 10:23 ABDOMEN W/O CONTRAST [CT] Stat - Medication Orders Current Medication Orders: Discontinued Medications Ketorolac Tromethamine (Toradol) 15 mg IVP STAT STA Stop: 01/06/17 10:25 Last Admin: 01/06/17 10:45 Dose: 15 mg CIERA Pain Assessment Document 01/06/17 10:45 NH (Rec: 01/06/17 10:45 NH [id number]) Pain Reassessment Is this a pain reassessment? No Sleep Is patient sleeping during reassessment? No Presence of Pain Presence of Pain Yes Pain Scale Used Pain Scale Used Numeric Location Left, Right or Bilateral Right Pain Location Body Site Back Description Description Constant Intensity of Pain at present 5 Acceptable Level of Pain 2 IVP Administration Document 01/06/17 10:45 NH (Rec: 01/06/17 10:45 NH [id number]) Charges for Administration # of IVP Administrations 1 Disposition/Present on Arrival - Present on Arrival Any Indicators Present on Arrival: No History of DVT/PE: No History of Uncontrolled Diabetes: No Urinary Catheter: No History of Decub. Ulcer: No History Surgical Site Infection Following: None - Disposition Have Diagnosis and Disposition been Completed?: Yes Disposition Time: 12:46 Patient Plan: Observation - Disposition Diagnosis: Transaminitis, Abdominal pain Disposition: HOSPITALIZED Patient Problems: Current Active Problems Problem Status Onset Abdominal pain Acute Transaminitis Acute Condition: STABLE
[2017-01-06 11:12] LABS: BASO # 0.02 K/mm3 (0.0-2.0); BASO % 0.2 % (0.0-3.0); EOS # 0.2 (0.0-0.7); EOS % 1.8 % (1.5-5.0); GRAN # 4.88 (1.4-6.5); GRAN % 60.2 % (50.0-68.0); HEMATOCRIT 41.8 % (36.0-48.0); LYMPH # 2.6 (1.2-3.4); MEAN CELL VOLUME 80.9 fl (80.0-105.0); MEAN CORPUSCULAR HEMOGLOBIN 26.3 pg (25.0-35.0); MEAN CORPUSCULAR HGB CONC 32.5 g/dl (31.0-37.0); MEAN PLATELET VOLUME 9.5 fl (7.0-11.0); MONO # 0.5 (0.1-0.6); MONO % 5.8 % (1.0-6.0); WHITE BLOOD COUNT 8.1 10^3/ul (4.5-11.0)
[2017-01-06 11:20] LABS: ALB/GLOB RATIO 1.3 (1.1-1.8); ALKALINE PHOSPHATASE 57 U/L (38-126); ALT/SGPT 98 U/L (7-56); AST/SGOT 57 U/L (14-36); BILIRUBIN,TOTAL 0.4 mg/dL (0.2-1.3); BLOOD UREA NITROGEN 14 mg/dL (7-21); CALCIUM 9.4 mg/dL (8.4-10.5); CARBON DIOXIDE 27 mmol/L (21-33); CHLORIDE 101 mmol/L (98-107); GFR AFRICAN-AMERICAN > 60; GLUCOSE,RANDOM 99 mg/dL (70-110); LIPASE 103 U/L (23-300); POTASSIUM 4.4 mmol/L (3.6-5.0); SODIUM 140 mmol/L (132-148); TOTAL PROTEIN 7.7 g/dL (5.8-8.3)
--- NOTE | 2017-01-06 12:08 | CT ---
PROCEDURE: CT Abdomen without intravenous contrast HISTORY: ab pain COMPARISON: None. TECHNIQUE: Axial images of the abdomen from lung bases to iliac crest without intravenous contrast enhancement. Coronal and sagittal reformats generated. Oral contrast was administered. Radiation dose: Total exam DLP = 409 mGy-cm. This CT exam was performed using one or more of the following dose reduction techniques: Automated exposure control, adjustment of the mA and/or kV according to patient size, and/or use of iterative reconstruction technique. FINDINGS: LOWER THORAX: Unremarkable. LIVER: There is severe fatty infiltration of the liver. GALLBLADDER AND BILE DUCTS: Gallbladder removed PANCREAS: Unremarkable. No gross lesion or ductal dilatation. SPLEEN: Unremarkable. ADRENALS: Unremarkable. No mass. KIDNEYS AND URETERS: Unremarkable. No hydronephrosis. No solid mass. VASCULATURE: Unremarkable. No aortic aneurysm. BOWEL: Unremarkable. No obstruction. No gross mural thickening. PERITONEUM: Unremarkable. No free fluid. No free air. LYMPH NODES: Unremarkable. No enlarged lymph nodes. BONES: No acute fracture. OTHER FINDINGS: None. IMPRESSION: Fatty infiltration of the liver. No acute findings
[2017-01-06] MEDS ORDERED: Pneumococcal 23-Valent Vaccine IM ONE (14:16)
--- NOTE | 2017-01-06 16:14 | CP.PCM.HP ---
<Channing Herrera - Last Filed: 01/06/17 18:06> History of Present Illness - History of Present Illness History of Present Illness: 31 F w/PMH sig for cholecystectomy with choledocholithiasis s/p stents evaluated for intermittent Right midepigastric and RUQ pain over the last 10 days with minimal relief with pain medication. Was unable to . Pt saw PMD 4 days prior to evaluation with instructions to present to ED today for evaluation. Pain is 5/10, radiates to RUQ. Is currently on pain medications as per PMD. Denies N/V/F/C, SOB, CP, diarrhea, other complaints. LMP: 9mo ago. Had IUD placed. PMH: uncomplicated last year. PSH: cholecystectomy, stent placement/removal due to choledocholithiasias with Dr. Eid, appendectomy All: Denies SH: Denies PMD: Saleeb Present on Admission - Present on Admission Any Indicators Present on Admission: No Review of Systems - Review of Systems All systems: reviewed and no additional remarkable complaints except - Constitutional Constitutional: As Per HPI Past Patient History - Infectious Disease Hx of Infectious Diseases: None - Past Social History Smoking Status: Never Smoked - CARDIAC Hx Cardiac Disorders: No Hx Pacemaker: No - PULMONARY Hx Respiratory Disorders: No - NEUROLOGICAL Hx Neurological Disorder: No - HEENT Hx HEENT Problems: No - RENAL Hx Chronic Kidney Disease: No - ENDOCRINE/METABOLIC Hx Endocrine Disorders: No - HEMATOLOGICAL/ONCOLOGICAL Hx Blood Disorders: No - INTEGUMENTARY Hx Dermatological Problems: No - MUSCULOSKELETAL/RHEUMATOLOGICAL Hx Musculoskeletal Disorders: No Hx Falls: No - GASTROINTESTINAL Hx Gastrointestinal Disorders: Yes (HEMORRHOIDECTOMY) Hx Gall Bladder Disease: Yes (CHOLECYSTECTOMY WITH STENT) Other/Comment: Gall Stones. patient reports elevated liver enzymes -FATTY LIVER - GENITOURINARY/GYNECOLOGICAL Hx Genitourinary Disorders: Yes (IUD) - PSYCHIATRIC Hx Psychophysiologic Disorder: No Hx Emotional Abuse: No Hx Physical Abuse: No Hx Substance Use: No - SURGICAL HISTORY Hx Surgeries: Yes (HEMORRHOIDECTOMY) Hx Appendectomy: Yes Hx Cholecystectomy: Yes Other/Comment: 2 additional surgeries due to complications - ANESTHESIA Hx Anesthesia: Yes Hx Anesthesia Reactions: No Hx Malignant Hyperthermia: No Meds Allergies/Adverse Reactions: Allergies Allergy/AdvReac Type Severity Reaction Status Date / Time No Known Allergies Allergy Verified 01/06/17 13:47 Physical Exam - Constitutional Appears: Non-toxic, No Acute Distress - Head Exam Head Exam: ATRAUMATIC - Eye Exam Eye Exam: EOMI. absent: Scleral icterus - ENT Exam ENT Exam: Mucous Membranes Moist - Respiratory Exam Respiratory Exam: Respiratory Distress, NORMAL BREATHING PATTERN. absent: Accessory Muscle Use - Cardiovascular Exam Cardiovascular Exam: +S1, +S2 - GI/Abdominal Exam GI & Abdominal Exam: Normal Bowel Sounds, Soft, Tenderness. absent: Rigid - Extremities Exam Extremities exam: Positive for: normal inspection. Negative for: calf tenderness - Back Exam Back exam: absent: CVA tenderness (L), CVA tenderness (R) - Neurological Exam Neurological exam: Alert, CN II-XII Intact, Oriented x3 - Skin Skin Exam: Normal Color, Warm Results - Vital Signs Recent Vital Signs: Last Vital Signs Temp 98.1 F 01/06/17 14:16 Pulse 64 01/06/17 14:16 Resp 18 01/06/17 14:16 BP 105/64 01/06/17 14:16 Pulse Ox 98 01/06/17 14:16 - Labs Result Diagrams: 01/06/17 11:02 01/06/17 11:02 Assessment & Plan - Assessment and Plan (Free Text) Assessment: 31F hx cholecystectomy biliary stent placement intermittent RUQ abdominal pain over the last 10 days. Abdominal Pain NPO IVF GI consulted uCx and UA trend labs in AM Transaminitis Hepatatis pannel last visit was negative Imaging shows Fatty Liver changes Liver enzymes slightly elevated- will contine to trend D/W medical attending Channing Herrera PGY1 <[address],Steve - Last Filed: 01/07/17 12:32> Results - Vital Signs Recent Vital Signs: Last Vital Signs Temp 97.9 F 01/07/17 07:30 Pulse 82 01/07/17 07:30 Resp 19 01/07/17 07:30 BP 96/59 L 01/07/17 07:30 Pulse Ox 97 01/07/17 07:30 - Labs Result Diagrams: 01/07/17 06:39 01/07/17 06:39 Labs: Laboratory Results - last 24 hr 01/06/17 01/07/17 01/07/17 19:00 06:39 06:39 WBC 7.3 RBC 5.08 Hgb 13.2 Hct 41.4 MCV 81.5 MCH 26.0 MCHC 31.9 RDW 14.3 Plt Count 284 MPV 9.4 Gran % 50.1 Lymph % (Auto) 39.8 H Swift % (Auto) 6.7 H Eos % (Auto) 3.0 Baso % (Auto) 0.4 Gran # 3.64 Lymph # 2.9 Swift # 0.5 Eos # 0.2 Baso # 0.03 Sodium 141 Potassium 4.4 Chloride 102 Carbon Dioxide 31 Anion Gap 12 BUN 11 Creatinine 0.7 Est GFR ( Amer) > 60 Est GFR (Non-Af Amer) > 60 Random Glucose 100 Calcium 9.0 Total Bilirubin 0.5 AST 80 H D ALT 109 H Alkaline Phosphatase 58 Total Protein 7.5 Albumin 4.2 Globulin 3.2 Albumin/Globulin Ratio 1.3 Urine Color Light yellow Urine Appearance Clear Urine pH 6.5 Ur Specific Crescent <= 1.005 Urine Protein Negative Urine Glucose (UA) Negative Urine Ketones Negative Urine Blood Trace-lysed H Urine Nitrate Negative Urine Bilirubin Negative Urine Urobilinogen 0.2 Ur Leukocyte Esterase Trace H Urine RBC 0 - 2 Urine WBC 0 - 2 Ur Epithelial Cells 3 - 4 Urine Bacteria Mod Attending/Attestation - Attestation I have personally seen and examined this patient.: Yes I have fully participated in the care of the patient.: Yes I have reviewed all pertinent clinical information: Yes Notes (Text): 01/07/17 12:30 Patient was seen and examined with adjunct faculty for medical terminology. Agreed with resident assessment and plan. 31 F with PMH of cholecystectomy followed by choledocholithiasis and billary stennt is admitted with Right mid epigastric and RUQ pain, Transaminase are mildly high, CBD is normal, etiology is unclear, will hydrate, monitor LFT and will get GI consult. Management plan was discussed in detail with patient Education was provided.
[2017-01-06 19:27] LABS: PH,URINE 6.5 (4.7-8.0); URINE BILIRUBIN NEGATIVE (NEGATIVE); URINE BLOOD TRACE-LYSED (NEGATIVE); URINE GLUCOSE (UA) NEGATIVE (NEGATIVE); URINE KETONE NEGATIVE (NEGATIVE); URINE LEUKOCYTE ESTERASE TRACE Leu/uL (NEGATIVE); URINE PROTEIN NEGATIVE mg/dL (<30 mg/dL); URINE UROBILINOGEN 0.2 E.U./dL (<1 E.U./dL)
[2017-01-06 19:31] LABS: URINE APPEARANCE CLEAR (CLEAR); URINE COLOR LIGHT YELLOW (YELLOW)
[2017-01-06 19:38] LABS: URINE BACTERIA MOD (NEG); URINE RBC 0 - 2 /hpf (0-2); URINE WBC 0 - 2 /hpf (0-6)
[2017-01-06] MEDS ORDERED: Magnesium Citrate Oral SOL (300 ml) PO ONE (19:48)
[2017-01-06] MEDS: Morphine 4 mg/ml ISec IVP PRN (20:10)
[2017-01-07] MEDS: Morphine 4 mg/ml ISec IVP PRN ×3 (03:45→23:24)
[2017-01-07 06:55] LABS: BASO # 0.03 K/mm3 (0.0-2.0); BASO % 0.4 % (0.0-3.0); EOS # 0.2 (0.0-0.7); GRAN # 3.64 (1.4-6.5); GRAN % 50.1 % (50.0-68.0); HEMATOCRIT 41.4 % (36.0-48.0); LYMPH # 2.9 (1.2-3.4); LYMPH % 39.8 % (22.0-35.0); MEAN CELL VOLUME 81.5 fl (80.0-105.0); MEAN CORPUSCULAR HGB CONC 31.9 g/dl (31.0-37.0); MEAN PLATELET VOLUME 9.4 fl (7.0-11.0); MONO # 0.5 (0.1-0.6); MONO % 6.7 % (1.0-6.0); RED CELL DISTRIBUTION WIDTH 14.3 % (11.5-14.5); WHITE BLOOD COUNT 7.3 10^3/ul (4.5-11.0)
[2017-01-07 08:29] LABS: ALB/GLOB RATIO 1.3 (1.1-1.8); ALKALINE PHOSPHATASE 58 U/L (38-126); ALT/SGPT 109 U/L (7-56); AST/SGOT 80 U/L (14-36); BILIRUBIN,TOTAL 0.5 mg/dL (0.2-1.3); BLOOD UREA NITROGEN 11 mg/dL (7-21); CARBON DIOXIDE 31 mmol/L (21-33); CHLORIDE 102 mmol/L (98-107); GFR AFRICAN-AMERICAN > 60; GLUCOSE,RANDOM 100 mg/dL (70-110); POTASSIUM 4.4 mmol/L (3.6-5.0); SODIUM 141 mmol/L (132-148); TOTAL PROTEIN 7.5 g/dL (5.8-8.3)
[2017-01-07] MEDS: Sodium Chloride 0.9% 1,000 ML IV SCH (09:59)
--- NOTE | 2017-01-07 10:02 | CP.PCM.PN ---
<Dorian Ramirez - Last Filed: 01/07/17 14:41> Subjective - Date & Time of Evaluation Date of Evaluation: 01/07/17 Time of Evaluation: 10:00 - Subjective Subjective: Pt seen and examined at bedside. Pt with no acute complaints overnight. This morning, patient complains of right-sided flank pain. Pt able to tolerate her diet with no complaints. Pt last had a bowel movement yesterday. Denies CP, SOB , N/V/D, dysuria, fever, chills. Objective - Vital Signs/Intake and Output Vital Signs (last 24 hours): Temp Pulse Resp BP Pulse Ox 97.9 F 82 19 96/59 L 97 01/07/17 07:30 01/07/17 07:30 01/07/17 07:30 01/07/17 07:30 01/07/17 07:30 Intake and Output: 01/07/17 01/07/17 06:59 18:59 Intake Total 1160 Output Total 3 Balance 1157 - Medications Medications: Current Medications Sodium Chloride (Sodium Chloride 0.9%) 1,000 mls @ 100 mls/hr IV .Q10H [facility] Morphine Sulfate (Morphine) 4 mg IVP Q6 PRN PRN Reason: Pain, severe (8-10) Last Admin: 01/07/17 03:45 Dose: 4 mg Ondansetron HCl (Zofran Inj) 4 mg IVP Q4H PRN PRN Reason: Nausea/Vomiting Pantoprazole Sodium (Protonix Inj) 40 mg IVP DAILY [facility] Tramadol HCl (Ultram) 50 mg PO BID [facility] Last Admin: 01/06/17 18:10 Dose: Not Given - Labs Labs: 01/07/17 06:39 01/07/17 06:39 - Constitutional Appears: Non-toxic, No Acute Distress - Head Exam Head Exam: ATRAUMATIC, NORMAL INSPECTION, NORMOCEPHALIC - ENT Exam ENT Exam: Mucous Membranes Moist - Respiratory Exam Respiratory Exam: Clear to Ausculation Bilateral, NORMAL BREATHING PATTERN. absent: Rales, Rhonchi, Wheezes - Cardiovascular Exam Cardiovascular Exam: RRR, +S1, +S2 - GI/Abdominal Exam GI & Abdominal Exam: Soft, Tenderness (Right flank), Normal Bowel Sounds. absent: Distended, Guarding, Rebound - Extremities Exam Extremities Exam: Normal Inspection. absent: Calf Tenderness, Pedal Edema - Neurological Exam Neurological Exam: Alert, Awake, Oriented x3 - Psychiatric Exam Psychiatric exam: Normal Affect, Normal Mood - Skin Skin Exam: Intact, Normal Color, Warm Assessment and Plan - Assessment and Plan (Free Text) Plan: 31 y/o F with PMH of cholecystectomy s/p biliary stent placement and removal presents with abdominal pain. GI following, awaiting futher recommendations after MRCP today. Will continue to advance diet as tolerated. Abdominal Pain Liquid diet, advance as tolerated MRCP today as per GI NS @ 100 Follow urine culture GI consulted, Dr. Eid Transaminitis Previous Hep panel negative LFTs trending upward Actigal added by GI Abdomen/Pelvis CT demonstrates fatty infiltration of liver MRCP today, if negative, consider Liver biopsy as per GI PPX Protonix SCDs Ashley, PGY-2 <Steve Toribio - Last Filed: 01/08/17 16:06> Objective - Vital Signs/Intake and Output Vital Signs (last 24 hours): Temp Pulse Resp BP Pulse Ox 97.8 F 97 H 20 114/75 98 01/08/17 07:00 01/08/17 10:00 01/08/17 07:00 01/08/17 10:00 01/08/17 07:00 Intake and Output: 01/08/17 01/08/17 06:59 18:59 Intake Total 540 Balance 540 - Medications Medications: Current Medications Sodium Chloride (Sodium Chloride 0.9%) 1,000 mls @ 100 mls/hr IV .Q10H [facility] Last Admin: 01/07/17 09:59 Dose: 100 mls/hr Ceftriaxone Sodium (Rocephin 1 Gram Ivpb) 1 gm in 100 mls @ 100 mls/hr IVPB DAILY [facility] PRN Reason: Protocol Last Admin: 01/08/17 09:49 Dose: 100 mls/hr Morphine Sulfate (Morphine) 4 mg IVP Q6 PRN PRN Reason: Pain, severe (8-10) Last Admin: 01/08/17 06:11 Dose: 4 mg Ondansetron HCl (Zofran Inj) 4 mg IVP Q4H PRN PRN Reason: Nausea/Vomiting Pantoprazole Sodium (Protonix Inj) 40 mg IVP DAILY [facility] Last Admin: 01/08/17 09:49 Dose: 40 mg Tramadol HCl (Ultram) 50 mg PO BID [facility] Last Admin: 01/08/17 09:49 Dose: 50 mg Ursodiol (Actigall) 300 mg PO BID [facility] Last Admin: 01/08/17 09:49 Dose: 300 mg - Labs Labs: 01/08/17 09:00 01/08/17 09:00 Attending/Attestation - Attestation I have personally seen and examined this patient.: Yes I have fully participated in the care of the patient.: Yes I have reviewed all pertinent clinical information, including history, physical exam and plan: Yes Notes (Text): 01/08/17 16:06 Patient was seen and examined with biomedical electronics technician. Agreed with resident assessment and plan. Management plan was discussed in detail with patient Education was provided.
--- NOTE | 2017-01-07 12:49 | CP.PCM.PN ---
<Maylin Lora - Last Filed: 01/07/17 12:45> Subjective - Date & Time of Evaluation Date of Evaluation: 01/07/17 Time of Evaluation: 09:25 - Subjective Subjective: Seen and examined at the bedside earlier today, the chart was reviewed. Patient reported having a bowel movement this morning, denies any melena or bright red blood per rectum. Still complaining of right upper quadrant pain that radiates to her back, no acute distress or overnight events. Objective - Vital Signs/Intake and Output Vital Signs (last 24 hours): Temp Pulse Resp BP Pulse Ox 97.9 F 82 19 96/59 L 97 01/07/17 07:30 01/07/17 07:30 01/07/17 07:30 01/07/17 07:30 01/07/17 07:30 Intake and Output: 01/07/17 01/07/17 06:59 18:59 Intake Total 1160 Output Total 3 Balance 1157 - Medications Medications: Current Medications Sodium Chloride (Sodium Chloride 0.9%) 1,000 mls @ 100 mls/hr IV .Q10H [facility] Last Admin: 01/07/17 09:59 Dose: 100 mls/hr Morphine Sulfate (Morphine) 4 mg IVP Q6 PRN PRN Reason: Pain, severe (8-10) Last Admin: 01/07/17 03:45 Dose: 4 mg Ondansetron HCl (Zofran Inj) 4 mg IVP Q4H PRN PRN Reason: Nausea/Vomiting Pantoprazole Sodium (Protonix Inj) 40 mg IVP DAILY [facility] Last Admin: 01/07/17 09:59 Dose: 40 mg Tramadol HCl (Ultram) 50 mg PO BID [facility] Last Admin: 01/07/17 09:59 Dose: 50 mg Ursodiol (Actigall) 300 mg PO BID [facility] - Labs Labs: 01/07/17 06:39 01/07/17 06:39 - Constitutional Appears: No Acute Distress - Head Exam Head Exam: NORMOCEPHALIC - Eye Exam Eye Exam: Normal appearance. absent: Scleral icterus - ENT Exam ENT Exam: Mucous Membranes Moist - Neck Exam Neck Exam: Normal Inspection - Respiratory Exam Respiratory Exam: Clear to Ausculation Bilateral, NORMAL BREATHING PATTERN. absent: Respiratory Distress - Cardiovascular Exam Cardiovascular Exam: +S1, +S2 - GI/Abdominal Exam GI & Abdominal Exam: Soft, Tenderness (RUQ), Normal Bowel Sounds. absent: Guarding, Organomegaly, Rebound - Extremities Exam Extremities Exam: Normal Capillary Refill. absent: Calf Tenderness, Pedal Edema - Neurological Exam Neurological Exam: Alert, Awake, Oriented x3 - Skin Skin Exam: Dry, Warm Assessment and Plan - Assessment and Plan (Free Text) Assessment: ASSESSMENT: RUQ Pain/Back Pain Elevated LFT, hepatitis panel negative, autoimmune markers negative H/O CBD stones,last ERCP/stent removal 10/2017 Consitpation, s/o mg citrate PLAN: continue clear liquid, advance as tolerated continue PPI trend LFT request for MRCP/MRI abd w/contrast consider Liver biospy if MRCP negative for CBD stones start Actigall 300 mg BID Seen and discussed w/ Dr. Mota. <Mariama Eid V - Last Filed: 01/07/17 20:31> Objective - Vital Signs/Intake and Output Vital Signs (last 24 hours): Temp Pulse Resp BP Pulse Ox 98 F 80 20 97/60 L 96 01/07/17 16:18 01/07/17 16:18 01/07/17 16:18 01/07/17 16:18 01/07/17 16:18 Intake and Output: 01/07/17 01/08/17 18:59 06:59 Intake Total 780 Balance 780 - Medications Medications: Current Medications Sodium Chloride (Sodium Chloride 0.9%) 1,000 mls @ 100 mls/hr IV .Q10H [facility] Last Admin: 01/07/17 09:59 Dose: 100 mls/hr Ceftriaxone Sodium (Rocephin 1 Gram Ivpb) 1 gm in 100 mls @ 100 mls/hr IVPB DAILY [facility] PRN Reason: Protocol Morphine Sulfate (Morphine) 4 mg IVP Q6 PRN PRN Reason: Pain, severe (8-10) Last Admin: 01/07/17 15:42 Dose: 4 mg Ondansetron HCl (Zofran Inj) 4 mg IVP Q4H PRN PRN Reason: Nausea/Vomiting Pantoprazole Sodium (Protonix Inj) 40 mg IVP DAILY [facility] Last Admin: 01/07/17 09:59 Dose: 40 mg Tramadol HCl (Ultram) 50 mg PO BID [facility] Last Admin: 01/07/17 17:20 Dose: 50 mg Ursodiol (Actigall) 300 mg PO BID [facility] Last Admin: 01/07/17 17:21 Dose: 300 mg - Labs Labs: 01/07/17 06:39 01/07/17 06:39 Attending/Attestation - Attestation I have personally seen and examined this patient.: Yes I have fully participated in the care of the patient.: Yes I have reviewed all pertinent clinical information, including history, physical exam and plan: Yes Notes (Text): This is an addendum to GI progress report dictated by Maylin Lora APN.The patient was seen and examined earlier. Medical records, lab studies, imagings were reviewed. Last 24 hours events reviewed. Agreed with the above treatment plan as outlined in Maylin Lora APN's notes the with the addition of the following Patient in good bowel movements after the second of magnesia. Review of the CT showed a significant amount of stool initially. This patient has mildly elevated transaminases significantly improved compared to before however etiology is unclearautoimmue markers and hhepatitis profile were negative. MRCP was reported as negative. Other differential diagnoses to consider in this patient is a radical of the patient does have some point tenderness over the thoracic spine area on examination. Would request MRI of the thoracic spine in view of the long history of this pain right upper quadrant area radiating to the back. chronic hepatitis sometimes could also contribute to this type of chronic right upper quadrant discomfort In view of this persistently elevated transaminases and the pain liver biopsy can be considered.. Would continue Actigall 01/07/17 20:29
[2017-01-07] MEDS ORDERED: Gadodiamide 287 MG/ML VIAL (15ML) IV ONE (13:09)
--- NOTE | 2017-01-07 14:45 | MRI ---
PROCEDURE: Magnetic Resonance Cholangiopancreatography and MRI of the abdomen with and without contrast HISTORY: COMPARISON: 08/28/2016. TECHNIQUE: Multiplanar, multisequence MR images of the abdomen were obtained, including heavily T2 weighted MRCP images of the biliary system. Rotating maximum intensity projection images of the biliary system were generated. 15 cc of Omniscan FINDINGS: MRCP: The common bile duct is of a normal caliber. No evidence of choledocholithiasis. No intrahepatic biliary ductal dilatation. There is a long cystic duct remnant which inserts inferiorly on the common bile duct. There are no stones seen within the common duct or cystic duct remnant. LIVER: There is severe fatty infiltration of the liver. GALLBLADDER: Removed SPLEEN: Unremarkable. PANCREAS: Unremarkable. ADRENALS: Unremarkable. KIDNEYS: Unremarkable. AORTA: No aneurysm. ASCITES: None. OTHER FINDINGS: There are no enhancing lesions IMPRESSION: Severe fatty infiltration of the liver. No evidence of common duct stone or stone in the cystic duct remnant
[2017-01-08] MEDS: Morphine 4 mg/ml ISec IVP PRN ×2 (06:11→21:18)
[2017-01-08 07:20] LABS: ALB/GLOB RATIO 1.3 (1.1-1.8); BILIRUBIN,DIRECT 0.2 mg/dL (0.0-0.4); BILIRUBIN,TOTAL 0.6 mg/dL (0.2-1.3); TOTAL PROTEIN 7.4 g/dL (5.8-8.3)
--- NOTE | 2017-01-08 08:41 | CP.PCM.PN ---
<Dorian Ramirez - Last Filed: 01/08/17 13:56> Subjective - Date & Time of Evaluation Date of Evaluation: 01/08/17 Time of Evaluation: 08:38 - Subjective Subjective: Pt seen and examined at bedside. Pt doing well overnight with no acute complaints. Pt states her pain this morning is diffuse abdominally, but minimal. Denies CP, SOB, N/V/D, fever, chills. Objective - Vital Signs/Intake and Output Vital Signs (last 24 hours): Temp Pulse Resp BP Pulse Ox 98 F 70 20 90/52 L 94 L 01/08/17 00:05 01/08/17 00:05 01/08/17 00:05 01/08/17 00:05 01/08/17 00:05 - Medications Medications: Current Medications Sodium Chloride (Sodium Chloride 0.9%) 1,000 mls @ 100 mls/hr IV .Q10H [facility] [place] Last Admin: 01/07/17 09:59 Dose: 100 mls/hr Ceftriaxone Sodium (Rocephin 1 Gram Ivpb) 1 gm in 100 mls @ 100 mls/hr IVPB DAILY [facility] [place] PRN Reason: Protocol Morphine Sulfate (Morphine) 4 mg IVP Q6 PRN PRN Reason: Pain, severe (8-10) Last Admin: 01/08/17 06:11 Dose: 4 mg Ondansetron HCl (Zofran Inj) 4 mg IVP Q4H PRN PRN Reason: Nausea/Vomiting Pantoprazole Sodium (Protonix Inj) 40 mg IVP DAILY [facility] [place] Last Admin: 01/07/17 09:59 Dose: 40 mg Tramadol HCl (Ultram) 50 mg PO BID [facility] [place] Last Admin: 01/07/17 17:20 Dose: 50 mg Ursodiol (Actigall) 300 mg PO BID [facility] [place] Last Admin: 01/07/17 17:21 Dose: 300 mg - Constitutional Appears: Non-toxic, No Acute Distress - Head Exam Head Exam: ATRAUMATIC, NORMAL INSPECTION, NORMOCEPHALIC - ENT Exam ENT Exam: Mucous Membranes Moist - Respiratory Exam Respiratory Exam: Clear to Ausculation Bilateral, NORMAL BREATHING PATTERN. absent: Rales, Rhonchi, Wheezes - Cardiovascular Exam Cardiovascular Exam: RRR, +S1, +S2 - GI/Abdominal Exam GI & Abdominal Exam: Soft, Normal Bowel Sounds. absent: Tenderness - Extremities Exam Extremities Exam: Normal Inspection. absent: Calf Tenderness, Pedal Edema - Neurological Exam Neurological Exam: Alert, Awake, Oriented x3 - Psychiatric Exam Psychiatric exam: Normal Affect, Normal Mood - Skin Skin Exam: Intact, Normal Color, Warm Assessment and Plan - Assessment and Plan (Free Text) Plan: 31 y/o F with PMH of cholecystectomy s/p biliary stent placement and removal presents with abdominal pain with unknown source. Pt underwent MRCP yesterday which showed severe fatty infiltration of liver. Pt will have MRI of throacic spine as recommended by GI. Will continue to advance diet as tolerated. Abdominal Pain Heart healthy diet MRCP shows severe fatty infiltration of liver NS @ 100 Follow urine culture GI consulted, Dr. Eid Transaminitis Previous Hep panel negative LFTs trending upward Continue Actigal Abdomen/Pelvis CT demonstrates fatty infiltration of liver Thoracic spine MRI ordered Consider Liver biopsy as per GI PPX Protonix SCDs Ashley, PGY-2 <Steve Toribio - Last Filed: 01/08/17 16:10> Objective - Vital Signs/Intake and Output Vital Signs (last 24 hours): Temp Pulse Resp BP Pulse Ox 97.8 F 97 H 20 114/75 98 01/08/17 07:00 01/08/17 10:00 01/08/17 07:00 01/08/17 10:00 01/08/17 07:00 Intake and Output: 01/08/17 01/08/17 06:59 18:59 Intake Total 540 Balance 540 - Medications Medications: Current Medications Sodium Chloride (Sodium Chloride 0.9%) 1,000 mls @ 100 mls/hr IV .Q10H [facility] Last Admin: 01/07/17 09:59 Dose: 100 mls/hr Ceftriaxone Sodium (Rocephin 1 Gram Ivpb) 1 gm in 100 mls @ 100 mls/hr IVPB DAILY [facility] PRN Reason: Protocol Last Admin: 01/08/17 09:49 Dose: 100 mls/hr Morphine Sulfate (Morphine) 4 mg IVP Q6 PRN PRN Reason: Pain, severe (8-10) Last Admin: 01/08/17 06:11 Dose: 4 mg Ondansetron HCl (Zofran Inj) 4 mg IVP Q4H PRN PRN Reason: Nausea/Vomiting Pantoprazole Sodium (Protonix Inj) 40 mg IVP DAILY [facility] [place] Last Admin: 01/08/17 09:49 Dose: 40 mg Tramadol HCl (Ultram) 50 mg PO BID [facility] [place] Last Admin: 01/08/17 09:49 Dose: 50 mg Ursodiol (Actigall) 300 mg PO BID [facility] [place] Last Admin: 01/08/17 09:49 Dose: 300 mg - Labs Labs: 01/08/17 09:00 01/08/17 09:00 Attending/Attestation - Attestation I have personally seen and examined this patient.: Yes I have fully participated in the care of the patient.: Yes I have reviewed all pertinent clinical information, including history, physical exam and plan: Yes Notes (Text): 01/08/17 16:07 Patient was seen and examined with general medical practitioner. Agreed with resident assessment and plan. 31 yrs old female with PMH of cholecystectomy ,s/p biliary stent placement and removal presents with abdominal pain with unknown source. Pt underwent MRCP yesterday which showed severe fatty infiltration of liver.Patient is for MRI of thoracic spine , if negative ,we will discuss with GI, if there is no plan for liver biopsy, we will discharge home.Pain is better, we will advance diet. Management plan was discussed in detail with patient Education was provided.
[2017-01-08 09:25] LABS: HEMATOCRIT 42.1 % (36.0-48.0); MEAN CELL VOLUME 83.2 fl (80.0-105.0); MEAN CORPUSCULAR HEMOGLOBIN 26.1 pg (25.0-35.0); MEAN CORPUSCULAR HGB CONC 31.4 g/dl (31.0-37.0); MEAN PLATELET VOLUME 9.7 fl (7.0-11.0); RED CELL DISTRIBUTION WIDTH 14.3 % (11.5-14.5); WHITE BLOOD COUNT 8.1 10^3/ul (4.5-11.0)
[2017-01-08 09:30] LABS: ALB/GLOB RATIO 1.3 (1.1-1.8); ALKALINE PHOSPHATASE 53 U/L (38-126); ALT/SGPT 102 U/L (7-56); AST/SGOT 67 U/L (14-36); BILIRUBIN,TOTAL 0.5 mg/dL (0.2-1.3); BLOOD UREA NITROGEN 7 mg/dL (7-21); CALCIUM 8.7 mg/dL (8.4-10.5); CARBON DIOXIDE 28 mmol/L (21-33); CHLORIDE 104 mmol/L (98-107); GFR AFRICAN-AMERICAN > 60; GLUCOSE,RANDOM 108 mg/dL (70-110); POTASSIUM 4.3 mmol/L (3.6-5.0); SODIUM 141 mmol/L (132-148); TOTAL PROTEIN 7.4 g/dL (5.8-8.3)
[2017-01-08] MEDS ORDERED: cefTRIAXone 1 gm 1 GM/100 ML BAG IVPB SCH (10:00)
--- NOTE | 2017-01-08 10:52 | CP.PCM.PN ---
<Maylin Lora - Last Filed: 01/08/17 10:51> Subjective - Date & Time of Evaluation Date of Evaluation: 01/08/17 Time of Evaluation: 08:40 - Subjective Subjective: Seen and examined at the bedside earlier this morning, the chart was reviewed. Patient had 2 loose BMs last night, no reports of overt GI bleed. Denies nausea , vomiting fever, chills. Still complaining of abdominal pain to right upper quadrant and back. He went for MRCP yesterday and no CBD stones or dilatation. Noted to have severe fatty liver. Tolerating clear liquid diet. Objective - Vital Signs/Intake and Output Vital Signs (last 24 hours): Temp Pulse Resp BP Pulse Ox 97.8 F 74 20 86/56 L 98 01/08/17 07:00 01/08/17 07:00 01/08/17 07:00 01/08/17 07:00 01/08/17 07:00 - Medications Medications: Current Medications Sodium Chloride (Sodium Chloride 0.9%) 1,000 mls @ 100 mls/hr IV .Q10H [facility] Last Admin: 01/07/17 09:59 Dose: 100 mls/hr Ceftriaxone Sodium (Rocephin 1 Gram Ivpb) 1 gm in 100 mls @ 100 mls/hr IVPB DAILY [facility] PRN Reason: Protocol Last Admin: 01/08/17 09:49 Dose: 100 mls/hr Morphine Sulfate (Morphine) 4 mg IVP Q6 PRN PRN Reason: Pain, severe (8-10) Last Admin: 01/08/17 06:11 Dose: 4 mg Ondansetron HCl (Zofran Inj) 4 mg IVP Q4H PRN PRN Reason: Nausea/Vomiting Pantoprazole Sodium (Protonix Inj) 40 mg IVP DAILY [facility] Last Admin: 01/08/17 09:49 Dose: 40 mg Tramadol HCl (Ultram) 50 mg PO BID [facility] Last Admin: 01/08/17 09:49 Dose: 50 mg Ursodiol (Actigall) 300 mg PO BID [facility] Last Admin: 01/08/17 09:49 Dose: 300 mg - Labs Labs: 01/08/17 09:00 01/08/17 09:00 - Constitutional Appears: No Acute Distress - Head Exam Head Exam: NORMOCEPHALIC - Eye Exam Eye Exam: Normal appearance. absent: Scleral icterus - ENT Exam ENT Exam: Mucous Membranes Moist - Neck Exam Neck Exam: Normal Inspection - Respiratory Exam Respiratory Exam: Clear to Ausculation Bilateral, NORMAL BREATHING PATTERN. absent: Respiratory Distress - Cardiovascular Exam Cardiovascular Exam: +S1, +S2 - GI/Abdominal Exam GI & Abdominal Exam: Soft, Tenderness (right upper quadrant), Normal Bowel Sounds. absent: Guarding, Organomegaly, Rebound - Extremities Exam Extremities Exam: Normal Capillary Refill. absent: Calf Tenderness, Pedal Edema - Neurological Exam Neurological Exam: Alert, Awake, Oriented x3 - Skin Skin Exam: Dry, Warm Assessment and Plan - Assessment and Plan (Free Text) Assessment: ASSESSMENT: RUQ Pain/Back Pain Elevated LFT, hepatitis panel negative, autoimmune markers negative H/O CBD stones,last ERCP/stent removal 10/2017 Consitpation, s/o mg citrate PLAN: advance diet to soft low residual diet continue PPI trend LFT pending MRI of spinal canal continue Actigall 300 mg BID may benefit from liver biopsy, we will repeat hepatitis serology. Seen and discussed w/ Dr. Mota. <Mariama Eid V - Last Filed: 01/08/17 21:11> Objective - Vital Signs/Intake and Output Vital Signs (last 24 hours): Temp Pulse Resp BP Pulse Ox 97.8 F 97 H 20 114/75 98 01/08/17 07:00 01/08/17 10:00 01/08/17 07:00 01/08/17 10:00 01/08/17 07:00 Intake and Output: 01/08/17 01/09/17 18:59 06:59 Intake Total 540 Balance 540 - Medications Medications: Current Medications Sodium Chloride (Sodium Chloride 0.9%) 1,000 mls @ 100 mls/hr IV .Q10H [facility] Last Admin: 01/07/17 09:59 Dose: 100 mls/hr Ceftriaxone Sodium (Rocephin 1 Gram Ivpb) 1 gm in 100 mls @ 100 mls/hr IVPB DAILY [facility] PRN Reason: Protocol Last Admin: 01/08/17 09:49 Dose: 100 mls/hr Morphine Sulfate (Morphine) 4 mg IVP Q6 PRN PRN Reason: Pain, severe (8-10) Last Admin: 01/08/17 06:11 Dose: 4 mg Ondansetron HCl (Zofran Inj) 4 mg IVP Q4H PRN PRN Reason: Nausea/Vomiting Pantoprazole Sodium (Protonix Inj) 40 mg IVP DAILY [facility] Last Admin: 01/08/17 09:49 Dose: 40 mg Tramadol HCl (Ultram) 50 mg PO BID [facility] Last Admin: 01/08/17 18:03 Dose: 50 mg Ursodiol (Actigall) 300 mg PO BID [facility] Last Admin: 01/08/17 18:05 Dose: 300 mg - Labs Labs: 01/08/17 09:00 01/08/17 09:00 Attending/Attestation - Attestation I have personally seen and examined this patient.: Yes I have fully participated in the care of the patient.: Yes I have reviewed all pertinent clinical information, including history, physical exam and plan: Yes Notes (Text): This is an addendum to GI progress report dictated by Maylin Lora APN.The patient was seen and examined earlier. Medical records, lab studies, imagings were reviewed. Last 24 hours events reviewed. Agreed with the above treatment plan as outlined in Maylin Lora APN's notes the with the addition of the following MRI findings noted Abdomen soft mild tenderness on deep palpation the right-sided abdomen. advance diet slowly Large hepatomegaly persistently elevated transaminases for a longer time Would benefit from biopsy request IR consult for liver biopsy 01/08/17 21:09
--- NOTE | 2017-01-08 13:22 | MRI ---
PROCEDURE: MR THORACIC SPINE WITHOUT CONTRAST HISTORY: chronic ruq pain r/o thoracic radiculopathy COMPARISON: None available. TECHNIQUE: Multiecho multiplanar sequences were performed through the thoracic spine without the use of intravenous contrast. FINDINGS: ALIGNMENT: Normal thoracic spinal alignment. Normal thoracic kyphosis. VERTEBRA: Vertebral body height are preserved. MARROW: Marrow signal unremarkable. PARASPINAL SOFT TISSUES: Unremarkable. CORD: Unremarkable thoracic cord. No volume loss, signal abnormality or syrinx. DISCS: Small central disc protrusion at T7-8. There is a small right paracentral disc protrusion at T9-10 There is a small to moderate left paracentral disc protrusion at T11-12 OTHER FINDINGS: None. IMPRESSION: Small central disc protrusion at T7-8. There is a small right paracentral disc protrusion at T9-10 There is a small to moderate left paracentral disc protrusion at T11-12 No evidence of spinal stenosis or cord compression
[2017-01-08] MEDS: Sodium Chloride 0.9% 1,000 ML IV SCH (21:11)
[2017-01-09] MEDS: Sodium Chloride 0.9% 1,000 ML IV SCH (01:19)
[2017-01-09 06:56] LABS: ALB/GLOB RATIO 1.3 (1.1-1.8); ALKALINE PHOSPHATASE 51 U/L (38-126); ALT/SGPT 88 U/L (7-56); AST/SGOT 44 U/L (14-36); BILIRUBIN,DIRECT 0.4 mg/dL (0.0-0.4); BILIRUBIN,TOTAL 0.4 mg/dL (0.2-1.3); BLOOD UREA NITROGEN 11 mg/dL (7-21); CALCIUM 9.5 mg/dL (8.4-10.5); CARBON DIOXIDE 28 mmol/L (21-33); CHLORIDE 102 mmol/L (95-110); GFR AFRICAN-AMERICAN > 60; GLUCOSE,RANDOM 102 mg/dL (70-110); POTASSIUM 4.6 mmol/L (3.6-5.0); SODIUM 139 mmol/L (132-148); TOTAL PROTEIN 6.8 g/dL (5.8-8.3)
[2017-01-09] MEDS ORDERED: Morphine 4 mg/ml ISec IVP PRN (08:05)
[2017-01-09 08:15] LABS: MEAN CELL VOLUME 82.1 fl (80.0-105.0); MEAN CORPUSCULAR HEMOGLOBIN 26.3 pg (25.0-35.0); MEAN PLATELET VOLUME 9.6 fl (7.0-11.0); RED CELL DISTRIBUTION WIDTH 14.1 % (11.5-14.5); WHITE BLOOD COUNT 7.2 10^3/ul (4.5-11.0)
[2017-01-09] MEDS ORDERED: Morphine 2 mg/ml ISec IVP PRN (08:26)
[2017-01-09] MEDS: Morphine 2 mg/ml ISec IVP PRN (10:10)
[2017-01-09] MEDS ORDERED: Midazolam 2 MG/2 ML VIAL ONE (12:49)
--- NOTE | 2017-01-09 13:09 | CP.PCM.PN ---
<Maylin Lora - Last Filed: 01/09/17 13:07> Subjective - Date & Time of Evaluation Date of Evaluation: 01/09/17 Time of Evaluation: 10:00 - Subjective Subjective: S&E at bedside, chart reviewed, MRI spine, reveal disc protrusion , compression fracture, abdominal pain persist but some improvement. Had BM, slightly loose, no bleeding. No N/V, tolerating oral intake. Objective - Vital Signs/Intake and Output Vital Signs (last 24 hours): Temp Pulse Resp BP Pulse Ox 97.9 F 72 20 97/61 L 98 01/09/17 07:25 01/09/17 07:25 01/09/17 07:25 01/09/17 07:25 01/09/17 07:25 Intake and Output: 01/09/17 01/09/17 06:59 18:59 Intake Total 240 300 Balance 240 300 - Medications Medications: Current Medications Sodium Chloride (Sodium Chloride 0.9%) 1,000 mls @ 100 mls/hr IV .Q10H [facility] Last Admin: 01/09/17 01:19 Dose: Not Given Morphine Sulfate (Morphine) 1 mg IVP Q6H PRN PRN Reason: Pain, severe (8-10) Last Admin: 01/09/17 10:10 Dose: 1 mg Morphine Sulfate (Morphine) 1 mg IVP Q6H PRN PRN Reason: Pain, severe (8-10) Ondansetron HCl (Zofran Inj) 4 mg IVP Q4H PRN PRN Reason: Nausea/Vomiting Pantoprazole Sodium (Protonix Inj) 40 mg IVP DAILY [facility] Last Admin: 01/09/17 10:09 Dose: 40 mg Tramadol HCl (Ultram) 50 mg PO BID [facility] Last Admin: 01/09/17 10:10 Dose: 50 mg Ursodiol (Actigall) 300 mg PO BID [facility] Last Admin: 01/09/17 10:10 Dose: 300 mg - Labs Labs: 01/09/17 06:00 01/09/17 06:00 - Constitutional Appears: No Acute Distress - Head Exam Head Exam: NORMOCEPHALIC - Eye Exam Eye Exam: Normal appearance. absent: Scleral icterus - ENT Exam ENT Exam: Mucous Membranes Moist - Neck Exam Neck Exam: Normal Inspection - Respiratory Exam Respiratory Exam: Clear to Ausculation Bilateral, NORMAL BREATHING PATTERN. absent: Respiratory Distress - Cardiovascular Exam Cardiovascular Exam: +S1, +S2 - GI/Abdominal Exam GI & Abdominal Exam: Soft, Tenderness (mid abdomen), Normal Bowel Sounds. absent: Guarding, Rebound - Extremities Exam Extremities Exam: Normal Capillary Refill. absent: Calf Tenderness, Pedal Edema - Neurological Exam Neurological Exam: Alert, Awake, Oriented x3 - Skin Skin Exam: Dry, Warm Assessment and Plan - Assessment and Plan (Free Text) Assessment: ASSESSMENT: RUQ Pain/Back Pain, s/p MRI spine, no stenosis or compression, (+) disc protrusion Elevated LFT, hepatitis panel negative, autoimmune markers negative H/O CBD stones,last ERCP/stent removal 10/2017 Constipation PLAN: continue soft low residual diet continue PPI trend LFT continue Actigall 300 mg BID for at least 3 months request for IR lee for liver biopsy. Seen and discussed w/ Dr. Mota. <Mariama Eid V - Last Filed: 01/09/17 22:19> Subjective - Date & Time of Evaluation Date of Evaluation: 01/09/17 Objective - Vital Signs/Intake and Output Vital Signs (last 24 hours): Temp Pulse Resp BP Pulse Ox 98 F 84 18 132/81 99 01/09/17 18:30 01/09/17 18:30 01/09/17 18:30 01/09/17 18:30 01/09/17 18:30 Intake and Output: 01/09/17 01/10/17 18:59 06:59 Intake Total 640 420 Balance 640 420 - Medications Medications: Current Medications Sodium Chloride (Sodium Chloride 0.9%) 1,000 mls @ 100 mls/hr IV .Q10H [facility] Last Admin: 01/09/17 01:19 Dose: Not Given Sodium Chloride (Sodium Chloride 0.45%) 1,000 mls @ 80 mls/hr IV .[id number] [facility] Stop: 01/09/17 23:00 Morphine Sulfate (Morphine) 1 mg IVP Q6H PRN PRN Reason: Pain, severe (8-10) Last Admin: 01/09/17 10:10 Dose: 1 mg Morphine Sulfate (Morphine) 1 mg IVP Q6H PRN PRN Reason: Pain, severe (8-10) Ondansetron HCl (Zofran Inj) 4 mg IVP Q4H PRN PRN Reason: Nausea/Vomiting Pantoprazole Sodium (Protonix Inj) 40 mg IVP DAILY [facility] Last Admin: 01/09/17 10:09 Dose: 40 mg Tramadol HCl (Ultram) 50 mg PO BID [facility] Last Admin: 01/09/17 18:45 Dose: 50 mg Ursodiol (Actigall) 300 mg PO BID [facility] Last Admin: 01/09/17 18:44 Dose: 300 mg - Labs Labs: 01/09/17 06:00 01/09/17 06:00 Attending/Attestation - Attestation I have personally seen and examined this patient.: Yes I have fully participated in the care of the patient.: Yes I have reviewed all pertinent clinical information, including history, physical exam and plan: Yes Notes (Text): This is an addendum to GI progress report dictated by Maylin Lora APN.The patient was seen and examined earlier. Medical records, lab studies, imagings were reviewed. Last 24 hours events reviewed. Agreed with the above treatment plan as outlined in Maylin Lora APN's notes the with the addition of the following Still complains of tenderness in the right upper quadrant area Transaminases show downward trend Discussed with Dr. Bennett White Planned for liver biopsy 01/09/17 22:18
--- NOTE | 2017-01-09 14:56 | CP.PCM.PN ---
<Channing Herrera - Last Filed: 01/09/17 15:09> Subjective - Date & Time of Evaluation Date of Evaluation: 01/09/17 Time of Evaluation: 10:00 - Subjective Subjective: Medicine Progress Note Pt S&E at bedside this AM. No acute events overnight. Pain is manageable. Tolerating current diet. Denies N/V/D F/C CP. Objective - Vital Signs/Intake and Output Vital Signs (last 24 hours): Temp Pulse Resp BP Pulse Ox 97.9 F 72 20 97/61 L 98 01/09/17 07:25 01/09/17 07:25 01/09/17 07:25 01/09/17 07:25 01/09/17 07:25 Intake and Output: 01/09/17 01/09/17 06:59 18:59 Intake Total 240 540 Balance 240 540 - Medications Medications: Current Medications Sodium Chloride (Sodium Chloride 0.9%) 1,000 mls @ 100 mls/hr IV .Q10H [facility] Last Admin: 01/09/17 01:19 Dose: Not Given Morphine Sulfate (Morphine) 1 mg IVP Q6H PRN PRN Reason: Pain, severe (8-10) Last Admin: 01/09/17 10:10 Dose: 1 mg Morphine Sulfate (Morphine) 1 mg IVP Q6H PRN PRN Reason: Pain, severe (8-10) Ondansetron HCl (Zofran Inj) 4 mg IVP Q4H PRN PRN Reason: Nausea/Vomiting Pantoprazole Sodium (Protonix Inj) 40 mg IVP DAILY [facility] Last Admin: 01/09/17 10:09 Dose: 40 mg Tramadol HCl (Ultram) 50 mg PO BID [facility] Last Admin: 01/09/17 10:10 Dose: 50 mg Ursodiol (Actigall) 300 mg PO BID [facility] Last Admin: 01/09/17 10:10 Dose: 300 mg - Labs Labs: 01/09/17 06:00 01/09/17 06:00 - Constitutional Appears: Non-toxic, No Acute Distress - Eye Exam Eye Exam: EOMI. absent: Scleral icterus - ENT Exam ENT Exam: Mucous Membranes Moist - Respiratory Exam Respiratory Exam: NORMAL BREATHING PATTERN. absent: Accessory Muscle Use, Respiratory Distress - Cardiovascular Exam Cardiovascular Exam: +S1, +S2. absent: Bradycardia, Tachycardia - GI/Abdominal Exam GI & Abdominal Exam: Soft, Normal Bowel Sounds. absent: Distended, Firm, Guarding, Rigid, Tenderness - Extremities Exam Extremities Exam: Normal Inspection. absent: Calf Tenderness - Back Exam Back Exam: absent: CVA tenderness (L), CVA tenderness (R) - Neurological Exam Neurological Exam: Alert, Oriented x3 - Psychiatric Exam Psychiatric exam: Normal Affect - Skin Skin Exam: Normal Color, Warm Assessment and Plan - Assessment and Plan (Free Text) Assessment: 31 y/o F with PMH of cholecystectomy s/p biliary stent placement and removal presents with abdominal pain with unknown source. MRCP showed severe fatty infiltration of liver. MRI of thoracic spine revealed Central disc protrusion T7 -8. On Regular diet. Abdominal Pain Heart healthy diet MRCP shows severe fatty infiltration of liver GI recs Liver Biopsy today w/ IR Transaminitis Previous Hep panel negative Trend LFT Continue Actigal Abdomen/Pelvis CT demonstrates fatty infiltration of liver Channing Herrera PGY1 <Steve Toribio - Last Filed: 01/09/17 15:39> Objective - Vital Signs/Intake and Output Vital Signs (last 24 hours): Temp Pulse Resp BP Pulse Ox 97.9 F 72 20 97/61 L 98 01/09/17 07:25 01/09/17 07:25 01/09/17 07:25 01/09/17 07:25 01/09/17 07:25 Intake and Output: 01/09/17 01/09/17 06:59 18:59 Intake Total 240 540 Balance 240 540 - Medications Medications: Current Medications Sodium Chloride (Sodium Chloride 0.9%) 1,000 mls @ 100 mls/hr IV .Q10H [facility] Last Admin: 01/09/17 01:19 Dose: Not Given Morphine Sulfate (Morphine) 1 mg IVP Q6H PRN PRN Reason: Pain, severe (8-10) Last Admin: 01/09/17 10:10 Dose: 1 mg Morphine Sulfate (Morphine) 1 mg IVP Q6H PRN PRN Reason: Pain, severe (8-10) Ondansetron HCl (Zofran Inj) 4 mg IVP Q4H PRN PRN Reason: Nausea/Vomiting Pantoprazole Sodium (Protonix Inj) 40 mg IVP DAILY [facility] Last Admin: 10/05/17 10:09 Dose: 40 mg Tramadol HCl (Ultram) 50 mg PO BID [facility] Last Admin: 01/09/17 10:10 Dose: 50 mg Ursodiol (Actigall) 300 mg PO BID [facility] Last Admin: 01/09/17 10:10 Dose: 300 mg - Labs Labs: 01/09/17 06:00 01/09/17 06:00 Attending/Attestation - Attestation I have personally seen and examined this patient.: Yes I have fully participated in the care of the patient.: Yes I have reviewed all pertinent clinical information, including history, physical exam and plan: Yes Notes (Text): 01/09/17 15:34 Patient was seen and examined with medical records coordinator. Agreed with resident assessment and plan. 31 yrs old female with PMH of cholecystectomy ,s/p biliary stent placement and removal presents with abdominal pain with unknown source. Pt underwent MRCP which showed severe fatty infiltration of liver, MRI of thoracic spine is unremarkable., patient is for liver biopsy today. Management plan was discussed in detail with patient Education was provided.
[2017-01-09] MEDS ORDERED: Sodium Chloride 0.45% 1,000 ML IV SCH (17:45)
--- NOTE | 2017-01-09 20:35 | CT ---
PROCEDURE: CT guided liver biopsy. HISTORY: Abnormal LFTs. Fatty liver. Needs biopsy. PHYSICIAN(S): Bennett White MD. TECHNIQUE: The relative risks and indications of the procedure were explained to the patient and consent obtained. The patient was placed supine on the CT scanner and preliminary images through the liver obtained. Conscious sedation and monitoring were provided throughout the procedure by a nurse. There is diffuse fatty infiltration of the liver.. A subxyphoid approach was selected and the area prepped and draped in the usual sterile fashion. 1% Xylocaine was used to anesthetize the skin and soft tissues. A 17-gauge guiding needle was advanced into the lateral segment of the left lobe of the liver. Its position was confirmed with CT. Using coaxial technique, multiple core biopsies were obtained. The postprocedure images show no evidence of significant hemorrhage. IMPRESSION: 1. CT-guided liver biopsy as described above.
[2017-01-10 01:35] VITALS: RESP 20
[2017-01-10] MEDS: Sodium Chloride 0.9% 1,000 ML IV SCH ×4 (05:31→05:34)
[2017-01-10 07:11] LABS: HEMATOCRIT 40.1 % (36.0-48.0); MEAN CELL VOLUME 81.2 fl (80.0-105.0); MEAN CORPUSCULAR HEMOGLOBIN 25.9 pg (25.0-35.0); MEAN CORPUSCULAR HGB CONC 31.9 g/dl (31.0-37.0); MEAN PLATELET VOLUME 9.3 fl (7.0-11.0); WHITE BLOOD COUNT 7.6 10^3/ul (4.5-11.0)
[2017-01-10 07:26] LABS: ALB/GLOB RATIO 1.2 (1.1-1.8); ALKALINE PHOSPHATASE 51 U/L (38-126); ALT/SGPT 84 U/L (7-56); AST/SGOT 44 U/L (14-36); BILIRUBIN,DIRECT 0.2 mg/dL (0.0-0.4); BILIRUBIN,TOTAL 0.4 mg/dL (0.2-1.3); BLOOD UREA NITROGEN 9 mg/dL (7-21); CALCIUM 8.8 mg/dL (8.4-10.5); CARBON DIOXIDE 26 mmol/L (21-33); CHLORIDE 105 mmol/L (98-107); GFR AFRICAN-AMERICAN > 60; GLUCOSE,RANDOM 102 mg/dL (70-110); POTASSIUM 4.3 mmol/L (3.6-5.0); SODIUM 140 mmol/L (132-148); TOTAL PROTEIN 6.9 g/dL (5.8-8.3)
[2017-01-10 08:00] VITALS: O2SAT 97
[2017-01-10] MEDS: Morphine 2 mg/ml ISec IVP PRN (09:41)
--- NOTE | 2017-01-10 12:44 | CP.PCM.DIS ---
<Channing Herrera - Last Filed: 01/10/17 12:37> Provider - Provider Date of Admission: 01/08/17 07:24 Attending physician: Steve Toribio MD Primary care physician: Jax Parks MD Time Spent in preparation of Discharge (in minutes): 40 Hospital Course - Lab Results Lab Results: Most Recent Lab Values WBC 7.6 10^3/ul (4.5-11.0) 01/10/17 06:30 RBC 4.94 10^6/uL (3.5-6.1) 01/10/17 06:30 Hgb 12.8 g/dL (12.0-16.0) 01/10/17 06:30 Hct 40.1 % (36.0-48.0) 01/10/17 06:30 MCV 81.2 fl (80.0-105.0) 01/10/17 06:30 MCH 25.9 pg (25.0-35.0) 01/10/17 06:30 MCHC 31.9 g/dl (31.0-37.0) 01/10/17 06:30 RDW 14.0 % (11.5-14.5) 01/10/17 06:30 Plt Count 260 10^3/uL (120.0-450.0) 01/10/17 06:30 MPV 9.3 fl (7.0-11.0) 01/10/17 06:30 Gran % 50.1 % (50.0-68.0) 01/07/17 06:39 Lymph % (Auto) 39.8 % (22.0-35.0) H 01/07/17 06:39 [place] % (Auto) 6.7 % (1.0-6.0) H 01/07/17 06:39 Eos % (Auto) 3.0 % (1.5-5.0) 01/07/17 06:39 Baso % (Auto) 0.4 % (0.0-3.0) 01/07/17 06:39 Gran # 3.64 (1.4-6.5) 01/07/17 06:39 Lymph # 2.9 (1.2-3.4) 01/07/17 06:39 [place] # 0.5 (0.1-0.6) 01/07/17 06:39 Eos # 0.2 (0.0-0.7) 01/07/17 06:39 Baso # 0.03 K/mm3 (0.0-2.0) 01/07/17 06:39 Sodium 140 mmol/L (132-148) 01/10/17 06:30 Potassium 4.3 mmol/L (3.6-5.0) 01/10/17 06:30 Chloride 105 mmol/L (98-107) 01/10/17 06:30 Carbon Dioxide 26 mmol/L (21-33) 01/10/17 06:30 Anion Gap 13 (10-20) 01/10/17 06:30 BUN 9 mg/dL (7-21) 01/10/17 06:30 Creatinine 0.7 mg/dL (0.7-1.2) 01/10/17 06:30 Est GFR ( Amer) > 60 01/10/17 06:30 Est GFR (Non-Af Amer) > 60 01/10/17 06:30 Random Glucose 102 mg/dL (70-110) 01/10/17 06:30 Calcium 8.8 mg/dL (8.4-10.5) 01/10/17 06:30 Total Bilirubin 0.4 mg/dL (0.2-1.3) 01/10/17 06:30 Direct Bilirubin 0.2 mg/dL (0.0-0.4) 01/10/17 06:30 AST 44 U/L (14-36) H 01/10/17 06:30 ALT 84 U/L (7-56) H 01/10/17 06:30 Alkaline Phosphatase 51 U/L (38-126) 01/10/17 06:30 Total Protein 6.9 g/dL (5.8-8.3) 01/10/17 06:30 Albumin 3.8 g/dL (3.0-4.8) 01/10/17 06:30 Globulin 3.1 gm/dL 01/10/17 06:30 Albumin/Globulin Ratio 1.2 (1.1-1.8) 01/10/17 06:30 Lipase 103 U/L (23-300) 01/06/17 11:02 Urine Color Light yellow (YELLOW) 01/06/17 19:00 Urine Appearance Clear (CLEAR) 01/06/17 19:00 Urine pH 6.5 (4.7-8.0) 01/06/17 19:00 Ur Specific [place] <= 1.005 (1.005-1.035) 01/06/17 19:00 Urine Protein Negative mg/dL (<30 mg/dL) 01/06/17 19:00 Urine Glucose (UA) Negative mg/dL (NEGATIVE) 01/06/17 19:00 Urine Ketones Negative mg/dL (NEGATIVE) 01/06/17 19:00 Urine Blood Trace-lysed (NEGATIVE) H 01/06/17 19:00 Urine Nitrate Negative (NEGATIVE) 01/06/17 19:00 Urine Bilirubin Negative (NEGATIVE) 01/06/17 19:00 Urine Urobilinogen 0.2 E.U./dL (<1 E.U./dL) 01/06/17 19:00 Ur Leukocyte Esterase Trace Vamsi/uL (NEGATIVE) H 01/06/17 19:00 Urine RBC 0 - 2 /hpf (0-2) 01/06/17 19:00 Urine WBC 0 - 2 /hpf (0-6) 01/06/17 19:00 Ur Epithelial Cells 3 - 4 /hpf (0-5) 01/06/17 19:00 Urine Bacteria Mod (NEG) 01/06/17 19:00 Hepatitis A IgM Ab Negative (NEGATIVE) 01/08/17 08:30 Hep Bs Antigen Negative (NEGATIVE) 01/08/17 08:30 Hep B Core IgM Ab Negative (NEGATIVE) 01/08/17 08:30 Hepatitis C Antibody Negative (NEGATIVE) 01/08/17 08:30 - Hospital Course Hospital Course: 31 F w/PMH sig for cholecystectomy with choledocholithiasis s/p stents evaluated for intermittent Right midepigastric and RUQ pain over the last 10 days with minimal relief with pain medication. Prior to admission pt saw PMD 4 days ago. During admission patient was started on Ursodiol. Liver biopsy was performed and tolerated the procedure well. Pt is currently tolerating diet well with minimal pain and to be discharged in good condition. Patient to follow up with Primary care doctor Dr. Parks in one to two weeks for the results of the liver biopsy. Discharge Exam - Head Exam Head Exam: NORMOCEPHALIC - Eye Exam Eye Exam: EOMI. absent: Scleral icterus - ENT Exam ENT Exam: Mucous Membranes Moist - Respiratory Exam Respiratory Exam: NORMAL BREATHING PATTERN. absent: Accessory Muscle Use, Respiratory Distress - Cardiovascular Exam Cardiovascular Exam: +S1, +S2. absent: Bradycardia, Tachycardia - GI/Abdominal Exam GI & Abdominal Exam: Normal Bowel Sounds, Soft. absent: Diminished Bowel Sounds , Distended, Tenderness - Extremities Exam Extremities exam: normal inspection - Back Exam Back exam: absent: CVA tenderness (L), CVA tenderness (R) - Neurological Exam Neurological exam: Alert, Oriented x3 - Psychiatric Exam Psychiatric exam: Normal Affect - Skin Skin Exam: Normal Color, Warm Discharge Plan - Discharge Medications Prescriptions: Ursodiol [Actigall] 300 mg PO BID 14 Days cap - Follow Up Plan Condition: STABLE Disposition: HOME/ ROUTINE Instructions: Cholecystitis (DC), Gallstones (DC), Pneumococcal Vaccine for Adults (GEN), Laparoscopic Cholecystectomy (DC), Influenza Vaccine (GEN), Acute Abdominal Pain (DC) Additional Instructions: Take medications as directed. Follow up with primary care provider Dr. Parks for the results of the liver biopsy. Follow up with GI in two weeks. Return to Local ER if symptoms worsen. Referrals: Mariama Eid MD [Medical Doctor] - Jax Parks MD [Primary Care Provider] - Follow up with primary <Steve Toribio - Last Filed: 01/10/17 15:50> Provider - Provider Date of Admission: 01/08/17 07:24 Attending physician: Steve Toribio MD Primary care physician: Jax Parks MD Hospital Course - Lab Results Lab Results: Most Recent Lab Values WBC 7.6 10^3/ul (4.5-11.0) 01/10/17 06:30 RBC 4.94 10^6/uL (3.5-6.1) 01/10/17 06:30 Hgb 12.8 g/dL (12.0-16.0) 01/10/17 06:30 Hct 40.1 % (36.0-48.0) 01/10/17 06:30 MCV 81.2 fl (80.0-105.0) 01/10/17 06:30 MCH 25.9 pg (25.0-35.0) 01/10/17 06:30 MCHC 31.9 g/dl (31.0-37.0) 01/10/17 06:30 RDW 14.0 % (11.5-14.5) 01/10/17 06:30 Plt Count 260 10^3/uL (120.0-450.0) 01/10/17 06:30 MPV 9.3 fl (7.0-11.0) 01/10/17 06:30 Gran % 50.1 % (50.0-68.0) 01/07/17 06:39 Lymph % (Auto) 39.8 % (22.0-35.0) H 01/07/17 06:39 [place] % (Auto) 6.7 % (1.0-6.0) H 01/07/17 06:39 Eos % (Auto) 3.0 % (1.5-5.0) 01/07/17 06:39 Baso % (Auto) 0.4 % (0.0-3.0) 01/07/17 06:39 Gran # 3.64 (1.4-6.5) 01/07/17 06:39 Lymph # 2.9 (1.2-3.4) 01/07/17 06:39 [place] # 0.5 (0.1-0.6) 01/07/17 06:39 Eos # 0.2 (0.0-0.7) 01/07/17 06:39 Baso # 0.03 K/mm3 (0.0-2.0) 01/07/17 06:39 Sodium 140 mmol/L (132-148) 01/10/17 06:30 Potassium 4.3 mmol/L (3.6-5.0) 01/10/17 06:30 Chloride 105 mmol/L (98-107) 01/10/17 06:30 Carbon Dioxide 26 mmol/L (21-33) 01/10/17 06:30 Anion Gap 13 (10-20) 01/10/17 06:30 BUN 9 mg/dL (7-21) 01/10/17 06:30 Creatinine 0.7 mg/dL (0.7-1.2) 01/10/17 06:30 Est GFR ( Amer) > 60 01/10/17 06:30 Est GFR (Non-Af Amer) > 60 10/06/17 06:30 Random Glucose 102 mg/dL (70-110) 01/10/17 06:30 Calcium 8.8 mg/dL (8.4-10.5) 01/10/17 06:30 Total Bilirubin 0.4 mg/dL (0.2-1.3) 01/10/17 06:30 Direct Bilirubin 0.2 mg/dL (0.0-0.4) 01/10/17 06:30 AST 44 U/L (14-36) H 01/10/17 06:30 ALT 84 U/L (7-56) H 01/10/17 06:30 Alkaline Phosphatase 51 U/L (38-126) 01/10/17 06:30 Total Protein 6.9 g/dL (5.8-8.3) 01/10/17 06:30 Albumin 3.8 g/dL (3.0-4.8) 01/10/17 06:30 Globulin 3.1 gm/dL 01/10/17 06:30 Albumin/Globulin Ratio 1.2 (1.1-1.8) 01/10/17 06:30 Lipase 103 U/L (23-300) 01/06/17 11:02 Urine Color Light yellow (YELLOW) 01/06/17 19:00 Urine Appearance Clear (CLEAR) 01/06/17 19:00 Urine pH 6.5 (4.7-8.0) 01/06/17 19:00 Ur Specific [place] <= 1.005 (1.005-1.035) 01/06/17 19:00 Urine Protein Negative mg/dL (<30 mg/dL) 01/06/17 19:00 Urine Glucose (UA) Negative mg/dL (NEGATIVE) 01/06/17 19:00 Urine Ketones Negative mg/dL (NEGATIVE) 01/06/17 19:00 Urine Blood Trace-lysed (NEGATIVE) H 01/06/17 19:00 Urine Nitrate Negative (NEGATIVE) 01/06/17 19:00 Urine Bilirubin Negative (NEGATIVE) 01/06/17 19:00 Urine Urobilinogen 0.2 E.U./dL (<1 E.U./dL) 01/06/17 19:00 Ur Leukocyte Esterase Trace Vamsi/uL (NEGATIVE) H 01/06/17 19:00 Urine RBC 0 - 2 /hpf (0-2) 01/06/17 19:00 Urine WBC 0 - 2 /hpf (0-6) 01/06/17 19:00 Ur Epithelial Cells 3 - 4 /hpf (0-5) 01/06/17 19:00 Urine Bacteria Mod (NEG) 01/06/17 19:00 Hepatitis A IgM Ab Negative (NEGATIVE) 01/08/17 08:30 Hep Bs Antigen Negative (NEGATIVE) 01/08/17 08:30 Hep B Core IgM Ab Negative (NEGATIVE) 01/08/17 08:30 Hepatitis C Antibody Negative (NEGATIVE) 01/08/17 08:30 Attending/Attestation - Attestation I have personally seen and examined this patient.: Yes I have fully participated in the care of the patient.: Yes I have reviewed all pertinent clinical information, including history, physical exam and plan: Yes Notes (Text): 01/10/17 15:48 Patient was seen and examined with medical cost consultant. Agreed with resident assessment and plan. 31 yrs old female with PMH of cholecystectomy ,s/p biliary stent placement and removal presents with abdominal pain with unknown source. Pt underwent MRCP which showed severe fatty infiltration of liver.Thoraccic MRI was negative for any acute changes.She underwent liver biospy yesterday.The results are pending at this time.She will follow up the result of biopsy with PCP and GI. Her LFT are stable at the time of discharge.She is tolerating diet. Management plan was discussed in detail with patient Education was provided.
[2017-01-10 16:15] VITALS: BP 110/70; PULSE 72; TEMP 98.4
--- NOTE | 2017-02-01 21:28 | CP.PCM.CON ---
History of Present Illness - History of Present Illness History of Present Illness: This 31-year-old patient status post ERCP removal of the stones stent placement and removal was complaining of worsening of abdominal pain for 10 days. She describes it primarily epigastric and right upper quadrant area no diarrhea. Patient was found to have mildly elevated liver enzymes CT was done Was reviewed. No fever. Also complaining of chronic back pain Review of Systems - Review of Systems All systems: reviewed and no additional remarkable complaints except - Constitutional Constitutional: absent: Chills, Fever - EENT Eyes: As Per HPI Ears: absent: Decreased Hearing, Ear Discharge Nose/Mouth/Throat: absent: Epistaxis, Nasal Discharge - Cardiovascular Cardiovascular: absent: Chest Pain, Pedal Edema, Syncope - Respiratory Respiratory: absent: Cough, Dyspnea - Gastrointestinal Gastrointestinal: As Per HPI - Genitourinary Genitourinary: absent: Dysuria, Flank Pain - Neurological Neurological: As Per HPI. absent: Abnormal Movements, Abnormal Speech - Psychiatric Psychiatric: As Per HPI - Endocrine Endocrine: As Per HPI Past Patient History - Infectious Disease Hx of Infectious Diseases: None - Past Social History Smoking Status: Never Smoked - CARDIAC Hx Cardiac Disorders: No Hx Pacemaker: No - PULMONARY Hx Respiratory Disorders: No - NEUROLOGICAL Hx Neurological Disorder: No - HEENT Hx HEENT Problems: No - RENAL Hx Chronic Kidney Disease: No - ENDOCRINE/METABOLIC Hx Endocrine Disorders: No - HEMATOLOGICAL/ONCOLOGICAL Hx Blood Disorders: No - INTEGUMENTARY Hx Dermatological Problems: No - MUSCULOSKELETAL/RHEUMATOLOGICAL Hx Musculoskeletal Disorders: No Hx Falls: No - GASTROINTESTINAL Hx Gastrointestinal Disorders: Yes (HEMORRHOIDECTOMY) Hx Gall Bladder Disease: Yes (CHOLECYSTECTOMY WITH STENT) Other/Comment: Gall Stones. patient reports elevated liver enzymes -FATTY LIVER - GENITOURINARY/GYNECOLOGICAL Hx Genitourinary Disorders: Yes (IUD) - PSYCHIATRIC Hx Psychophysiologic Disorder: No Hx Emotional Abuse: No Hx Physical Abuse: No Hx Substance Use: No - SURGICAL HISTORY Hx Surgeries: Yes (HEMORRHOIDECTOMY) Hx Appendectomy: Yes Hx Cholecystectomy: Yes Other/Comment: 2 additional surgeries due to complications - ANESTHESIA Hx Anesthesia: Yes Hx Anesthesia Reactions: No Hx Malignant Hyperthermia: No Meds Home Medications: Home Medication List Medication Instructions Recorded Confirmed Type Polyethylene Glycol 3350 [Miralax] 17 gm PO DAILY #0 MDD 17 gm (1 01/10/17 Rx packet) RX: Ursodiol [Actigall] 300 mg PO BID 14 Days cap 01/10/17 Rx Allergies/Adverse Reactions: Allergies Allergy/AdvReac Type Severity Reaction Status Date / Time No Known Allergies Allergy Verified 01/06/17 13:47 - Medications Medications: Current Medications Morphine Sulfate (Morphine) 4 mg IVP Q6 PRN PRN Reason: Pain, severe (8-10) Last Admin: 01/06/17 20:10 Dose: 4 mg Ondansetron HCl (Zofran Inj) 4 mg IVP Q4H PRN PRN Reason: Nausea/Vomiting Pantoprazole Sodium (Protonix Inj) 40 mg IVP DAILY [facility] Tramadol HCl (Ultram) 50 mg PO BID [facility] Last Admin: 01/06/17 18:10 Dose: Not Given Physical Exam - Constitutional Appears: No Acute Distress - Head Exam Head Exam: ATRAUMATIC, NORMOCEPHALIC - Eye Exam Eye Exam: EOMI, PERRL. absent: Scleral icterus - ENT Exam ENT Exam: Mucous Membranes Dry, Mucous Membranes Moist - Neck Exam Neck exam: Positive for: Normal Inspection. Negative for: Lymphadenopathy - Cardiovascular Exam Cardiovascular Exam: REGULAR RHYTHM, +S1, +S2. absent: JVD - Psychiatric Exam Psychiatric exam: Normal Mood - Skin Skin Exam: Normal Color, Warm Results - Vital Signs Recent Vital Signs: Last Vital Signs Temp 98.1 F 01/06/17 14:16 Pulse 64 01/06/17 14:16 Resp 18 01/06/17 14:16 BP 105/64 01/06/17 14:16 Pulse Ox 98 01/06/17 14:16 - Labs Result Diagrams: 01/10/17 06:30 01/10/17 06:30 Labs: Laboratory Results - last 24 hr 01/06/17 19:00 Urine Color Light yellow Urine Appearance Clear Urine pH 6.5 Ur Specific [place] <= 1.005 Urine Protein Negative Urine Glucose (UA) Negative Urine Ketones Negative Urine Blood Trace-lysed H Urine Nitrate Negative Urine Bilirubin Negative Urine Urobilinogen 0.2 Ur Leukocyte Esterase Trace H Urine RBC 0 - 2 Urine WBC 0 - 2 Ur Epithelial Cells 3 - 4 Urine Bacteria Mod Assessment & Plan - Assessment and Plan (Free Text) Assessment: Systemic General patient admitted with the abdominal pain right upper quadrant and also epigastric area radiating to the back. Complains of back pain sludge patient does have elevated transaminases Request MRI with MRCP to follow through Hepatitis profile Further management based on the clinical course Case discussed at length with . - Date & Time Date: 01/06/17 Time: 18:45
== END 2017-01-10 19:44 | disposition home or self-care (01) | DRG 206 ==
LOC: ED 09:53 → ERH 12:51 → 5RNO 14:03 → OBSVTOIN 01-08 07:24
PROVIDERS: ADMIT Internal Medicine; ATTEND Internal Medicine
PROC: 0FB23ZX Excision of Left Lobe Liver, Percutaneous Approach, Diagnostic (ICD-10-PCS; principal; 2017-01-09 14:00)
DX: K75.81 Nonalcoholic steatohepatitis (NASH) (principal); M51.24 Other intervertebral disc displacement, thoracic region; K76.0 Fatty (change of) liver, not elsewhere classified; R74.0 Nonspecific elevation of levels of transaminase and lactic acid dehydrogenase [LDH]; K59.00 Constipation, unspecified; R10.11 Right upper quadrant pain; Z30.430 Encounter for insertion of intrauterine contraceptive device; Z90.49 Acquired absence of other specified parts of digestive tract

== ENCOUNTER 2018-07-20 09:58 | Outpatient (CLI) | payer MEDICAID | END 2018-07-20 09:59 | disposition home or self-care (01) | LOC: RAD 09:58 ==

== ENCOUNTER 2018-08-10 10:29 | Outpatient (CLI) | payer MEDICAID | END 2018-08-10 10:30 | disposition home or self-care (01) | LOC: RAD 10:29 ==